=== PATIENT | female | born 1940 | race Caucasian/White ===

== ENCOUNTER → 2020-09-01 11:42 | Outpatient (CLI) | payer MEDICARE, OTHER, SELFPAY ==
--- NOTE | 2020-09-01 11:52 | DI.CT.S_ITS ---
PROCEDURE: CT CHEST WO CON INDICATIONS: shortness of breath TECHNIQUE: Noncontrast 5 mm thick sections acquired from the pulmonary apices to the posterior costophrenic angles. 1 mm lung window, 5 mm thick coronal and sagittal and 7 mm axial MIP reformats were then acquired. For radiation dose reduction, the following was used: automated exposure control, adjustment of mA and/or kV according to patient size. COMPARISON: [facility], CR, CHEST 2 VIEW, 11/22/2013, 13:04. [facility], CT, THORAX WITH CONTRAST, 04/18/2011, 13:11. CR, CHEST 2 VIEW, 08/08/2012, 12:20. FINDINGS: Image quality: Excellent. Lungs and pleura: Lungs are hyperinflated. No acute air space opacities. No pleural effusions or pneumothorax. Central and peripheral airways are patent and normal in caliber. There are right middle lobe and lingular scars and atelectasis. There are multiple lung nodules bilaterally. Desk Clerk nodules are listed below: Nodule 1: 3 mm; RUL; series 3, image 151.; ground-glass; new. Nodule 2: 3 mm; RUL; series 3, image 151; solid; increased in density. Nodule 3: 3 mm; RUL; series 3, image 68; ground-glass; stable. Nodule 4: 6 mm; RUL; series 3, image 68; ground-glass; new. Nodule 5: 3 mm; RUL; series 3, image 129; solid; new. Mediastinum: Heart size is normal. Trace pericardial effusion. Mild coronary artery atherosclerosis. No mediastinal adenopathy by size criteria. Thoracic aorta and central pulmonary arteries are normal in size. Esophagus is normal in caliber. No hiatal hernia. Bones and chest wall: No suspicious bony lesions. No vertebral body compression fractures. No axillary or supraclavicular adenopathy by size criteria. Thyroid gland is normal. Abdomen: Visualized upper abdominal solid organs and bowel loops appear normal in the absence of contrast. Partial visualization of calcified densities near the hepatic hilum. IMPRESSION: 1. No acute abnormalities. 2. Hyperinflation consistent with COPD. 3. Multiple lung nodules. A couple of nodules are new since 04/18/2011. Recommend follow-up imaging per recommendation (see below). 4. Trace pericardial effusion. 5. Partial visualized calcified densities in the hepatic hilum may be calcified lymph nodes. Fleischner Society criteria for SOLID lung nodule followup. Nodule size (mm)Low-risk patientHigh-risk patient?4No follow-up neededFollow-up at 12 mo; if no change, no further follow-up>5-0Hqggzk-ce CT at 12 mo; if no change, no further follow-up needed.Initial follow-up CT at 6-12 mo, then 18-24 mo if no change. >6-8Initial follow-up CT at 6-12 mo, then 18-24 mo if no change. Initial follow-up CT at 3-6 mo, then 9-12 mo and 24 mo if no change. >8Follow-up CT at 3, 9, 24 mo. Or PET and/or biopsy.Same as for low-risk pts. Fleischner Society criteria for SUB-SOLID lung nodule followup. Solitary pure ground-glass nodules5 mm or lessNo followup needed. >5 mm3 mo follow-up CT to confirm persistence. Then annual CT for 3 years. Part-solid nodules3 mo follow-up CT to confirm persistence. If persistent with solid component <5 mm, annual CT for at least 3 years. If solid component is 5 mm or more, biopsy or surgical resection. Consider PET-CT for lesions > 10 mm. Multiple sub-solid nodulesPure ground glass nodules [address] at 2 and 4 years. Pure ground glass nodules >5 mm without dominant lesion. [address] to confirm persistence, then annual followup CT for at least 3 years. Dominant nodule(s) with part-solid or solid component. [address] to confirm persistence. If persistent, consider biopsy or surgical resection, tomi if lesions have >5 mm solid component. Dictated by: Nik Cha M.D. on 09/01/2020 at 12:46 Approved by: Nik Cha M.D. on 09/01/2020 at 13:21
== END ==
PROVIDERS: PCP Family Medicine; Referring Provider Family Medicine; Visit Provider Family Medicine
DX: R06.02 Shortness of breath (principal); R91.8 Other nonspecific abnormal finding of lung field; I25.10 Atherosclerotic heart disease of native coronary artery without angina pectoris
CPT/HCPCS: 71250

== ENCOUNTER → 2020-10-28 12:01 | Outpatient (CLI) | payer MEDICARE, OTHER, SELFPAY ==
--- NOTE | 2020-10-28 12:02 | DI.US.S_ITS ---
PROCEDURE: US PELVIC COMPLETE INDICATIONS: Unspecified abdominal pain TECHNIQUE: Real-time scanning was performed of the pelvic organs, with image documentation. Additional endovaginal scanning was necessary due to incomplete visualization of the adnexal and endometrial structures by transabdominal scanning. COMPARISON: None. FINDINGS: Uterus: Surgically absent. No pelvic mass identified. Ovaries: Surgically absent. Other: No pathologic free abdominal or pelvic fluid. No right groin inguinal hernia. IMPRESSION: 1. Status post hysterectomy and bilateral oophorectomy. 2. No abnormal pelvic mass or fluid. 3. No right inguinal hernia. Dictated by: Sophia Eckert MD, PhD on 10/28/2020 at 17:54 Approved by: Sophia Eckert MD, PhD on 10/28/2020 at 17:55
--- NOTE | 2020-10-28 12:02 | DI.US.S_ITS ---
PROCEDURE: US ABDOMEN COMPLETE INDICATIONS: Unspecified abdominal pain TECHNIQUE: Real-time scanning was performed of the abdominal and retroperitoneal organs, with image documentation. COMPARISON: [facility], US, US PELVIC COMPLETE, 10/28/2020, 11:34. [facility], CT, CT CHEST WO CON, 09/01/2020, 11:53. FINDINGS: Liver: Liver is normal in size and homogeneous in echotexture. Gallbladder: Nondilated. No stones or sludge. Normal gallbladder wall thickness. No pericholecystic fluid. Negative sonographic Sanchez's sign. Biliary ducts: Intrahepatic bile ducts are non-dilated. Extrahepatic bile duct caliber measures 5 mm. Normal is 6-7 mm or less in diameter, or 10 mm or less post-cholecystectomy. Pancreas: Visualized portions of the pancreas are sonographically normal. Spleen: Spleen is normal in size and homogeneous in echotexture. Kidneys: Kidneys are normal in size and echotexture. Right kidney measures 8 cm long; left kidney measures 8.4 cm long. No hydronephrosis or nephrolithiasis. No solid masses. Aorta: Visualized aorta is normal in caliber at less than 3 cm. Atherosclerotic plaque is seen. Iliacs: Proximal common iliac arteries are normal in caliber at less than 2.5 cm. IVC: Intrahepatic inferior vena cava is patent. Miscellaneous: No free abdominal fluid. IMPRESSION: 1. No acute cholecystitis. No gallstones. 2. No biliary ductal dilatation demonstrated. 3. No hydronephrosis. Dictated by: Manuelito Lawrence M.D. on 10/28/2020 at 18:17 Approved by: Manuelito Lawrence M.D. on 10/28/2020 at 18:20
--- NOTE | 2020-10-28 13:21 | DI.RAD.S_ITS ---
PROCEDURE: XR HIP W PEL IF DONE RT 2V INDICATIONS: RT HIP PAIN TECHNIQUE: AP pelvis with lateral view(s) of the right hip(s). COMPARISON: None. FINDINGS: Bones: No fractures or dislocations. Pelvic ring appears intact. No suspicious bony lesions. Soft tissues: The visualized bowel gas pattern is normal. No suspicious soft tissue calcifications. IMPRESSION: Asymmetric hip joint osteoarthritis is present, mild on the left and [id number] on the right, without trauma. Dictated by: Mika Small M.D. on 10/28/2020 at 13:54 Approved by: Mika Small M.D. on 10/28/2020 at 13:55
== END ==
PROVIDERS: PCP Family Medicine; Referring Provider Family Medicine; Visit Provider Family Medicine
DX: R10.9 Unspecified abdominal pain (principal); M25.551 Pain in right hip; M16.0 Bilateral primary osteoarthritis of hip; Z90.710 Acquired absence of both cervix and uterus
CPT/HCPCS: 73502; 76700; 76856

== ENCOUNTER → 2021-05-10 10:48 | Outpatient (CLI) | payer MEDICARE, OTHER, SELFPAY ==
--- NOTE | 2021-05-10 | DI.US.S_ITS ---
PROCEDURE: US ABDOMEN COMPLETE INDICATIONS: PAIN TECHNIQUE: Real-time scanning was performed of the abdominal and retroperitoneal organs, with image documentation. COMPARISON: [facility], US, US ABDOMEN COMPLETE, 10/28/2020, 11:45. FINDINGS: Liver: Liver is normal in size and homogeneous in echotexture. Gallbladder: No findings of gallstones or sludge are seen. The gallbladder wall is not thickened, measuring 3 mm or less. No specific pericholecystic fluid is seen. The sonographic Sanchez sign is negative. Biliary ducts: Intrahepatic bile ducts are non-dilated. Extrahepatic bile duct caliber measures 5 mm. Normal is 6-7 mm or less in diameter, or 10 mm or less post-cholecystectomy. Pancreas: Visualized portions of the pancreas are sonographically normal. Spleen: Spleen is normal in size and homogeneous in echotexture. Kidneys: Right kidney measures 9 cm long; left kidney measures 7.9 cm long. Bilateral low-echogenicity prominent renal pyramids can be seen. No hydronephrosis or nephrolithiasis. No solid masses. Aorta: Visualized aorta is normal in caliber at less than 3 cm. Iliacs: Proximal common iliac arteries are normal in caliber at less than 2.5 cm. IVC: Intrahepatic inferior vena cava is patent. Miscellaneous: No free abdominal fluid. IMPRESSION: The gallbladder demonstrates a normal sonographic appearance. No biliary dilatation is seen. Small kidney size, without hydronephrosis. Prominent bilateral renal pelves remains can be seen Dictated by: Brian See M.D. on 05/10/2021 at 10:59 Approved by: Brian See M.D. on 05/10/2021 at 11:00
== END ==
PROVIDERS: PCP Family Medicine; Referring Provider Family Medicine; Visit Provider Family Medicine
DX: R10.9 Unspecified abdominal pain (principal)
CPT/HCPCS: 76700

== ENCOUNTER → 2021-06-03 14:53 | Outpatient (CLI) | payer MEDICARE, OTHER, SELFPAY ==
--- NOTE | 2021-06-03 14:56 | DI.CT.S_ITS ---
PROCEDURE: CT CHEST ABD PEL WO CON INDICATIONS: Shortness of breath,PELVIC PAIN,COUGH TECHNIQUE: After the administration of oral contrast, 5 mm thick sections acquired from the lung apices to the symphysis pubis. 5 mm thick coronal and sagittal reformats acquired, with additional 7 mm coronal MIP reformats through the lungs. For radiation dose reduction, the following was used: automated exposure control, adjustment of mA and/or kV according to patient size. COMPARISON: [facility], US, US ABDOMEN COMPLETE, 05/10/2021, 11:02. [facility], US, US ABDOMEN COMPLETE, 10/28/2020, 11:45. [facility], US, US PELVIC COMPLETE, 10/28/2020, 11:34. [facility], CT, CT CHEST WO CON, 09/01/2020, 11:53. CR, CHEST 2 VIEW, 08/08/2012, 12:20. FINDINGS: Image quality: Excellent. CHEST: Lungs and pleura: No acute pulmonary opacities. No pleural effusions or pneumothorax. Central and peripheral airways are patent are normal in caliber. Multiple subcentimeter bilateral pulmonary nodules previously identified are again noted and unchanged. The largest is a 6 mm nodule within the right upper lobe on series 3, image 67. Lungs are hyperinflated. Mediastinum: Heart size is mildly prominent with trace pericardial effusion. No mediastinal adenopathy by CT size criteria. Thoracic aorta and central pulmonary arteries are normal in size. Esophagus is normal in caliber. No hiatal hernia. Chest wall: No axillary or supraclavicular adenopathy by size criteria. Thyroid gland is unremarkable. ABDOMEN: Solid organs: Liver is normal in size. Gallbladder is unremarkable . Pancreas is normal in contours. Spleen is normal in size. No adrenal nodules. Both kidneys are normal in size, without hydronephrosis or nephrolithiasis. Peritoneum and bowel: Small and large bowel loops are normal in caliber and wall thickness. No free fluid or air. Scattered colonic diverticula are present without associated inflammatory change. Nodes and vessels: No retroperitoneal or mesenteric adenopathy by size criteria. Aorta and inferior vena cava are normal in size. Miscellaneous: No ventral hernias. PELVIS: Genitourinary: Bladder wall thickness is normal. Miscellaneous: No inguinal hernias or adenopathy. Bones: No suspicious bony lesions. No vertebral body compression fractures. IMPRESSION: 1. Stable appearance of bilateral subcentimeter pulmonary nodules with new nodules 1st identified on 09/01/2020. Based on size, no additional follow-up is recommended. 2. Hyperinflation consistent with COPD. Dictated by: Cinthya Guajardo M.D. on 06/03/2021 at 17:56 Approved by: Cinthya Guajardo M.D. on 06/03/2021 at 18:02
== END ==
PROVIDERS: PCP Family Medicine; Referring Provider Family Medicine; Visit Provider Family Medicine
DX: R06.02 Shortness of breath (principal); R05.9 Cough, unspecified; R10.2 Pelvic and perineal pain; R10.13 Epigastric pain; R91.8 Other nonspecific abnormal finding of lung field; J44.9 Chronic obstructive pulmonary disease, unspecified
CPT/HCPCS: 71250; 74176

== ENCOUNTER → 2021-06-17 11:58 | Outpatient (CLI) | payer MEDICARE, OTHER, SELFPAY ==
--- NOTE | 2021-06-17 | DI.RAD.S_ITS ---
PROCEDURE: XR LUMBAR SPINE 2-3V INDICATIONS: PAIN TECHNIQUE: 2 views of the lumbar spine were acquired. COMPARISON: [facility], CT, CT CHEST ABD PEL WO CON, 06/03/2021, 15:07. FINDINGS: Bones: 5 [id number] vertebrae are present. There is mild rightward curvature. Multilevel degenerative disc space narrowing, most severe at L5-S!, L2-3, mild to moderate throughout remaining levels. Moderate foraminal narrowing at L5-S1. No vertebral body compression fractures. No suspicious bony lesions. Soft tissues: Overlying bowel gas pattern is normal. No suspicious soft tissue calcifications. IMPRESSION: Degenerative changes as above. Dictated by: Cinthya Guajardo M.D. on 06/17/2021 at 16:47 Approved by: Cinthya Guajardo M.D. on 06/17/2021 at 16:50
== END ==
PROVIDERS: PCP Family Medicine; Referring Provider Family Medicine; Visit Provider Family Medicine
DX: M47.816 Spondylosis without myelopathy or radiculopathy, lumbar region (principal); M48.07 Spinal stenosis, lumbosacral region; I25.10 Atherosclerotic heart disease of native coronary artery without angina pectoris; I11.9 Hypertensive heart disease without heart failure
CPT/HCPCS: 72100

== ENCOUNTER → 2021-07-16 08:56 | Outpatient (CLI) | payer MEDICARE, OTHER, SELFPAY ==
--- NOTE | 2021-07-16 | DI.ECHO.S_ITS ---
[place] [facility]---------+ [facility] +---------+ : : [address] : : : : [id number] : : : : Phone: [phone]+ Echocardiogram Report + + :Name: SRIKANTH GONZALEZ Study Date: 07/16/2021 Height: 60 in : :[facility] ReadingLocation: Weight: 106 lb : : Gender: Female BSA: 1.4 m2 : :: 1940 Age: 81 yrs BP: 128/64 mmHg: :Reason For Study: Hypertensive heart disease without heart : :failure : : Performed By: Brian Coyle : :Referring: JEREMIAH DHALIWAL : + + Interpretation Summary Normal left ventricle size with ejection fraction 45-50%. There is apical anterior wall akinesis. There is apical hypokinesis. Grade I diastolic dysfunction. No significant valvular abnormality. Procedure: A two-dimensional transthoracic echocardiogram with color flow and Doppler was performed. Image quality was fair, however, aquisition was technically difficult due to patient remaining supine and unable to remain completely still. The patient was in normal sinus rhythm during the exam. Left Ventricle: The left ventricle is normal in size and wall thickness. The ejection fraction is estimated to be 45-50%. There is apical anterior wall akinesis. There is apical hypokinesis. There are no other obvious focal wall motion abnormalities. Diastolic parameters suggest a relaxation abnormality of the left ventricle, consistent with probable normal filling pressures. Right Ventricle: The right ventricle is normal in size and function. Atria: Both atria are normal in size. There is no Doppler evidence for an interatrial shunt. The thickening of interatrial septum suggests lipomatous hypertrophy. Mitral Valve: The mitral valve is normal. There is no mitral regurgitation noted. Aortic Valve: The aortic valve is trileaflet. The aortic valve opens well. The aortic valve is mildly calcified. There is trace aortic regurgitation. Tricuspid Valve: The tricuspid valve is normal. There is mild tricuspid regurgitation. The right ventricular systolic pressure is estimated to be at least 18 mmHg based on an estimated right atrial pressure of 3 mm Hg. Pulmonic Valve: The pulmonic valve is not well seen, but is grossly normal. Great Vessels: The aortic root is normal size. The ascending aorta is normal in size. The aortic arch is normal in size. The IVC is of normal diameter and collapses greater than 50% with a sniff. This suggests a low right atrial pressure of 3 mm Hg. Pericardium/ Pleura There is no pericardial effusion. There is an anterior echo-free space consistent with a fat pad. There is no pleural effusion. MMode/2D Measurements & Calculations LVIDd: 4.2 cm LVOT diam: 1.9 cm LVIDs: 3.1 cm Ao root diam: 2.8 cm FS: 26.1 % asc Aorta Diam: 3.2 cm IVSd: 0.62 cm Ao Arch Diam (Prox Trans): 1.9 cm LVPWd: 0.71 cm LV kearns. diameter/BSA (cm/m^2): 3.0 LV sys. diameter/BSA (cm/m^2): 2.2 LA A2 area: 11.0 cm2 RA long axis: 4.1 cm LA A4 area: 12.5 cm2 RA area: 9.8 cm2 LA length (vol): 4.8 cm RA vol: 20.0 ml LA vol: 24.5 ml RA : 14.0 ml/m2 LA vol index: 17.2 ml/m2 IVC diam: 1.3 cm TAPSE: 1.6 cm Doppler Measurements & Calculations Ao V2 max: 120.3 cm/sec LVOT Max Luis: 80.1 cm/sec Ao V2 mean: 90.4 cm/sec LV V1 max P.6 mmHg Ao max P.8 mmHg LV V1 VTI: 13.3 cm Ao mean P.5 mmHg CARIN(I,D): 1.6 cm2 Ao V2 VTI: 24.3 cm CARIN(V,D): 2.0 cm2 sev ratio: 0.55 CARIN indexed to BSA (cm^2/m^2): 1.1 MV E max luis: 56.5 cm/sec TR max luis: 191.8 cm/sec MV A max luis: 81.5 cm/sec TR max P.7 mmHg MV E/A: 0.69 PA V2 max: 71.2 cm/sec Med Peak E' Luis: 4.0 cm/sec PA V2 mean: 53.1 cm/sec E/E' med: 14.2 PA mean P.2 mmHg Lat Peak E' Luis: 3.3 cm/sec PA pr(Accel): 24.2 mmHg E/E' lat: 17.2 E/e' average: 15.7 MV dec time: 0.24 sec SV(LVOT): 39.5 ml Electronically signed by: Jeffrey Freitas on Reading Physician:07/16/2021 10:23 AM
== END ==
PROVIDERS: PCP Family Medicine; Referring Provider Family Medicine; Visit Provider Family Medicine
DX: I07.1 Rheumatic tricuspid insufficiency (principal); I11.9 Hypertensive heart disease without heart failure; I25.10 Atherosclerotic heart disease of native coronary artery without angina pectoris
CPT/HCPCS: 93306

== ENCOUNTER → 2021-07-21 13:36 | Outpatient (CLI) | payer MEDICARE, OTHER, SELFPAY ==
--- NOTE | 2021-07-21 | DI.MRI.S_ITS ---
PROCEDURE: MR THORACIC SPINE WO CON INDICATIONS: Other symptoms and signs involving the musculoskel TECHNIQUE: Noncontrast sagittal T1 spine echo and T2 fast spin echo, sagittal STIR, axial T1 and T2 fast spin echo through the thoracic spine. COMPARISON: None. FINDINGS: Image quality: Excellent. Alignment and Curvature: There is normal bony alignment. Bone Marrow: Marrow is of normal overall signal. No acute vertebral body compression fractures. Spinal Cord: Visualized spinal cord is normal in size and signal. Paraspinous Soft Tissues: No paravertebral masses. Miscellaneous: On axial images, central canal and foramina appear widely patent at all scanned levels. IMPRESSION: Normal MRI of the thoracic spine. Dictated by: Mac Moreno M.D. on 07/21/2021 at 15:15 Approved by: Mac Moreno M.D. on 07/21/2021 at 15:19
--- NOTE | 2021-07-21 14:19 | DI.MRI.S_ITS ---
PROCEDURE: MR LUMBAR SPINE WO CON INDICATIONS: Other symptoms and signs involving the musculoskel TECHNIQUE: Noncontrast sagittal T1 spin echo and T2 fast echo, sagittal STIR, axial T1 and T2 fast spin echo through the lumbar spine. In cases with scoliosis, additional coronal T2 fast spin echo may be performed. COMPARISON: None. FINDINGS: Image quality: Excellent. Alignment and Curvature: There is normal bony alignment. Bone Marrow: Marrow is of normal overall signal. No acute vertebral body compression fractures. Spinal Cord: Conus medullaris terminates at the T12-L1 disc level. Visualized cord demonstrates normal signal and size. Paraspinous Soft Tissues: No paravertebral masses. T12-L1: Loss of disc signal. No central stenosis. No neural foraminal narrowing. No neural compression. L1-L2: Loss of disc signal. Mild, diffuse disc bulge. Mild narrowing of the central canal. Mild bilateral neural foraminal narrowing. No neural compression. Fissure noted in the right foraminal annulus. L2-L3: Loss of disc signal and height. Moderate, diffuse disc bulge. Mild bilateral facet hypertrophy. Mild to moderate narrowing of the central canal. Moderate right and [id number] left neural foraminal narrowing. No neural compression. Longitudinal fissures noted in the annulus. L3-L4: Loss of disc signal and slight loss of disc height. Moderate, diffuse disc bulge. Mild bilateral facet hypertrophy. Mild to moderate narrowing of the central canal. Moderate right and [id number] left neural foraminal narrowing. No neural compression. Fissure noted in the anterior annulus. L4-L5: Loss of disc signal and height. Moderate, diffuse disc bulge. Moderate bilateral facet hypertrophy. Moderate narrowing of the central canal. Moderate to severe right and mild left neural foraminal narrowing with slight compression of the exiting right L4 nerve root. L5-S1: Loss of disc signal. Mild, diffuse disc bulge. Mild right and moderate left facet hypertrophy. No central stenosis. Mild bilateral neural foraminal narrowing. No neural compression. IMPRESSION: 1. Multilevel degenerative disc disease. 2. Multilevel facet arthropathy. 3. No severe central canal narrowing. 4. Moderate to severe right L4-L5 neural foraminal narrowing with slight compression of the exiting right L4 nerve root. 5. L1-L2, L2-L3 and L3-L4 disc annulus fissures. Dictated by: Sophia Eckert MD, PhD on 07/21/2021 at 16:52 Approved by: Sophia Eckert MD, PhD on 07/21/2021 at 16:56
== END ==
PROVIDERS: PCP Family Medicine; Referring Provider Family Medicine; Visit Provider Family Medicine
DX: M48.061 Spinal stenosis, lumbar region without neurogenic claudication (principal); M48.07 Spinal stenosis, lumbosacral region; M51.36 Other intervertebral disc degeneration, lumbar region; M51.37 Other intervertebral disc degeneration, lumbosacral region; M47.816 Spondylosis without myelopathy or radiculopathy, lumbar region; M47.817 Spondylosis without myelopathy or radiculopathy, lumbosacral region; R29.898 Other symptoms and signs involving the musculoskeletal system; M81.8 Other osteoporosis without current pathological fracture; M54.50 Low back pain, unspecified
CPT/HCPCS: 72146; 72148

== ENCOUNTER 2021-08-19 04:31 | Emergency (ER) | payer MEDICARE, OTHER, SELFPAY ==
[2021-08-19] VITALS (26 sets, daily range): BP systolic 95–151; BP diastolic 47–112; PULSE 80–111; RESP 18–22; TEMP 36.2; O2SAT 94–100; BMI 18.0
--- NOTE | 2021-08-19 04:37 | ED.BACK ---
HPI - Back Pain/Injury <Mihaipriyanka Mensah, DO - Last Filed: 08/19/21 23:06> General Chief Complaint: Back Pain/Injury Stated Complaint: Flank Pain Time Seen by Provider: 08/19/21 04:37 History of Present Illness HPI Narrative: 81-year-old female former smoker with COPD on home oxygen presents by EMS for evaluation of multiple complaints, though it seems that her back and flank pain is what is bothering her the most. She admits that she has been having various symptoms for many months if not longer which include difficulty with urination, that sensation of a bit bulge into her vagina that she has been told is ?her female parts settling ?, also she often times has hard time generating a bowel movement. She denies any fever chills. She has had no trauma, injury or fall. She had recently been seen by Urology given her complaints and had some microscopic hematuria on their exam. There was some discussion about whether she would benefit from a cystoscopy and there is also referral to Gynecology with the primary working diagnosis being a rectocele. It seems that her discomfort is worse when she moves and improves with rest. EMS was contacted and she was given some pain medication in route. Overall she is not a great historian Related Data Home Medications Medication Instructions Recorded Confirmed acetaminophen 300 mg-codeine 15 mg 1 tab PO Q6H PRN 08/17/21 08/17/21 tablet albuterol sulfate 2.5 mg INHALATION Q4-6H PRN 08/17/21 08/17/21 aspirin 81 mg tablet,delayed 81 mg PO DAILY 08/17/21 08/17/21 release (Adult Low Dose Aspirin) carvedilol 12.5 mg tablet 12.5 mg PO BID 08/17/21 08/17/21 cholecalciferol (vitamin D3) 25 25 mcg PO DAILY 08/17/21 08/17/21 mcg (1,000 unit) capsule clopidogrel 75 mg tablet 75 mg PO DAILY 08/17/21 08/17/21 fluticasone 500 mcg-salmeterol 50 1 inh INHALATION BID 08/17/21 08/17/21 mcg/dose blistr powdr for inhalation (Advair Diskus) furosemide 20 mg tablet (Lasix) 20 mg PO DAILY 08/17/21 08/17/21 gabapentin 100 mg capsule 100 mg PO DAILY 08/17/21 08/17/21 levalbuterol HCl 1.25 mg/3 mL 1.25 mg INHALATION Q4-6H PRN 08/17/21 08/17/21 solution for nebulization (Xopenex) losartan 25 mg tablet 25 mg PO DAILY 08/17/21 08/17/21 simvastatin 20 mg tablet 20 mg PO DAILY 08/17/21 08/17/21 sodium chloride-aloe vera nasal 1 applic TOPICAL BEDTIME PRN 08/17/21 08/17/21 gel (New Century Saline) tiotropium bromide 1.25 2 puff INHALATION DAILY 08/17/21 08/17/21 mcg/actuation mist for inhalation (Spiriva Respimat) vitamin B complex (B 1 tab PO DAILY 08/17/21 08/17/21 Complex-Vitamin B12) Previous Rx's Medication Instructions Recorded oxycodone 5 mg tablet 5 mg PO QID PRN #20 tab 08/19/21 Allergies Allergy/AdvReac Type Severity Reaction Status Date / Time Sulfa (Sulfonamide Allergy Verified 08/17/21 11:00 Antibiotics) Review of Systems <Mihai Mensah DO - Last Filed: 08/19/21 23:06> Review of Systems Narrative: GENERAL: Denies chills, fatigue, malaise, fever, sweats. HEENT: Denies sinus pain, ear pain, sore throat, difficulty swallowing, dizziness. RESPIRATORY: Denies dyspnea, cough, wheezing, hemoptysis, sputum. CARDIOVASCULAR: Denies chest pain, palpitations, orthopnea, edema, GASTROINTESTINAL: See HPI : See HPI MUSCULOSKELETAL: denies weakness, joint pain, or bony pain SKIN: Denies rash, skin lesions, or other NEUROLOGIC: Denies weakness, headache, numbness, change in speech, confusion, seizures, incoordination. PSYCHIATRIC: No concerning psychosocial issues. 12 point review of systems is negative except for those stated above Patient History <Mihai Mensah DO - Last Filed: 08/19/21 23:06> Medical History Anxiety Backache COPD (chronic obstructive pulmonary disease) Coronary arteriosclerosis Hyperlipidemia Hypertension complications Microscopic hematuria Osteoporosis Oxygen dependent Pelvic fracture Pelvic pain in female Peripheral vascular disease Pressure ulcer Right hip pain Vaginal vault prolapse after hysterectomy Vitamin D deficiency Voiding dysfunction Surgical History History of hysterectomy Family History Father Coronary artery disease Mother Coronary artery disease Diabetes mellitus Osteoarthritis Social History household members: spouse and family Smoking Status: Former smoker Exam <Mihai Mensah DO - Last Filed: 08/19/21 23:06> Narrative Exam Narrative: GENERAL: [81] year old patient appears older than stated age. Thin, frail and elderly, obviously uncomfortable HEAD: Atraumatic. Normocephalic. EYES: Pupils equal round and reactive. Extraocular motions intact. No scleral icterus. No injection or drainage. ENT: Nose without bleeding, purulent drainage. Throat without erythema, tonsillar hypertrophy or exudate. Airway patent. NECK: Trachea midline. Non tender CARDIOVASCULAR: Regular rate and rhythm without murmurs, gallops, or rubs. RESPIRATORY: Clear to auscultation. Breath sounds equal bilaterally. No wheezes, rales, or rhonchi. GASTROINTESTINAL: Abdomen soft, non-tender, nondistended. EXTREMITIES: No edema or joint tenderness. BACK: Nontender without deformity or crepitance. No flank tenderness. NEURO: AOx3. SKIN: No rash or erythema of visible areas Initial Vital Signs Initial Vital Signs: Vital Signs Pulse Rate 105 H 08/19/21 04:37 Pulse Oximetry 94 08/19/21 04:37 <Latasha Estrada DO - Last Filed: 08/19/21 13:38> Narrative Exam Narrative: GENERAL: [81] year old patient appears older than stated age. Thin, frail and elderly, obviously uncomfortable HEAD: Atraumatic. Normocephalic. EYES: Pupils equal round and reactive. Extraocular motions intact. No scleral icterus. No injection or drainage. ENT: Nose without bleeding, purulent drainage. Throat without erythema, tonsillar hypertrophy or exudate. Airway patent. NECK: Trachea midline. Non tender CARDIOVASCULAR: Regular rate and rhythm without murmurs, gallops, or rubs. RESPIRATORY: Clear to auscultation. Breath sounds equal bilaterally. No wheezes, rales, or rhonchi. GASTROINTESTINAL: Abdomen soft, non-tender, nondistended. EXTREMITIES: No edema or joint tenderness. BACK: Nontender without deformity or crepitance. No flank tenderness. NEURO: AOx3. SKIN: No rash or erythema of visible areas Mank: 08/19/21. GENERAL: Alert and oriented x three, elderly female in mild distress. HEENT: Head normocephalic, atraumatic, EOMI, pupils reactive, face symmetric, moist mucous membranes NECK: Supple, full range of motion CARDIOVASCULAR: Regular rate and rhythm without murmurs, rubs or gallops. RESPIRATORY: Breath sounds equal bilaterally, no wheezes rales or rhonchi. ABDOMEN: Soft, nontender. Normoactive bowel sounds all 4 quadrants. No guarding or rebound, rigidity, no mass : No CVA tenderness BACK: No cervical, thoracic or lumbar vertebral point tenderness. Patient has somewhat decreased range of motion. Patient has normal movement of bilateral lower extremity she can flex and extend without issue but is uncomfortable. 2+ dorsalis pedis bilaterally. Patient's sensation is touch bilateral. No saddle anesthesia. EXTREMITIES: Normal range of motion, no clubbing or edema. Neurovascularly intact NEUROLOGICAL: Cranial nerves II through XII grossly intact. Moving all extremities SKIN: Warm, dry, no petechiae, no rashes or lesions. Initial Vital Signs Initial Vital Signs: Vital Signs Pulse Rate 105 H 08/19/21 04:37 Pulse Oximetry 94 08/19/21 04:37 Course <Mihai Mensah DO - Last Filed: 08/19/21 23:06> Orders Ordered: Discontinued Medications Sodium Chloride (Normal Saline 0.9%) 1,000 mls @ 125 mls/hr IV CONT KAMRAN Last Infusion: 08/19/21 12:52 Dose: 0 mls/hr Documented by: Infusion: 08/19/21 11:55 Dose: 0 mls/hr Documented by: Admin: 08/19/21 04:53 Dose: 125 mls/hr Documented by: MILLICENT Ketorolac Tromethamine (Ketorolac 30 Mg/Ml Vial) 15 mg IV NOW ONE Stop: 08/19/21 11:34 Last Admin: 08/19/21 11:47 Dose: 15 mg Documented by: ATAYLOR Morphine Sulfate (Morphine 4 Mg/Ml Inj) 4 mg IV NOW ONE Stop: 08/19/21 07:40 Last Admin: 08/19/21 07:42 Dose: 4 mg Documented by: MILLICENT Ondansetron HCl (Ondansetron 4 Mg/2 Ml Inj) 4 mg IV NOW ONE Stop: 08/19/21 08:46 Last Admin: 08/19/21 08:48 Dose: 4 mg Documented by: JEFFERSON Oxycodone HCl (Oxycodone Ir 5 Mg Tablet) 10 mg PO NOW ONE Stop: 08/19/21 09:00 Last Admin: 08/19/21 09:04 Dose: 10 mg Documented by: DEB Potassium Chloride (Potassium Chloride 20 Meq/15 Ml Udc) 40 meq PO NOW ONE Stop: 08/19/21 08:38 Last Admin: 08/19/21 08:48 Dose: 40 meq Documented by: JEFFERSON Consultations Consultation #1: immediately upon viewing of head CT, images were pushed to [facility], call to [facility], Nicardipine ordered with BP goal of 165 Vital Signs Vital signs: Vital Signs - 8 hr 08/19/21 06:00 08/19/21 06:30 08/19/21 07:00 Pulse Rate 81 89 81 Respiratory Rate 20 Blood Pressure 103/51 L 101/51 L 114/57 L Pulse Oximetry 97 97 95 08/19/21 07:35 08/19/21 07:38 08/19/21 08:00 Pulse Rate 111 H 109 H 97 H Respiratory Rate 22 20 Blood Pressure 151/64 H Pulse Oximetry 95 100 98 08/19/21 08:01 08/19/21 08:30 08/19/21 08:31 Pulse Rate 96 H 101 H 96 H Respiratory Rate Blood Pressure 109/53 L 120/57 L Pulse Oximetry 99 99 98 08/19/21 09:00 08/19/21 09:37 08/19/21 09:44 Pulse Rate 93 H 95 H 97 H Respiratory Rate 20 Blood Pressure 119/56 L 99/57 L Pulse Oximetry 98 97 08/19/21 10:00 08/19/21 10:01 08/19/21 10:30 Pulse Rate 85 85 80 Respiratory Rate Blood Pressure 99/51 L Pulse Oximetry 98 98 98 08/19/21 11:00 08/19/21 11:30 08/19/21 12:00 Pulse Rate 87 86 91 H Respiratory Rate 18 Blood Pressure 112/57 L Pulse Oximetry 98 98 99 08/19/21 12:30 08/19/21 12:59 08/19/21 13:08 Pulse Rate 88 85 88 Respiratory Rate 18 Blood Pressure 131/60 131/60 Pulse Oximetry 96 98 98 <Latasha Estrada, DO - Last Filed: 08/19/21 13:38> Orders Ordered: Discontinued Medications Sodium Chloride (Normal Saline 0.9%) 1,000 mls @ 125 mls/hr IV CONT KAMRAN Last Infusion: 08/19/21 12:52 Dose: 0 mls/hr Documented by: Infusion: 08/19/21 11:55 Dose: 0 mls/hr Documented by: Admin: 08/19/21 04:53 Dose: 125 mls/hr Documented by: MILLICENT Ketorolac Tromethamine (Ketorolac 30 Mg/Ml Vial) 15 mg IV NOW ONE Stop: 08/19/21 11:34 Last Admin: 08/19/21 11:47 Dose: 15 mg Documented by: RENEE Morphine Sulfate (Morphine 4 Mg/Ml Inj) 4 mg IV NOW ONE Stop: 08/19/21 07:40 Last Admin: 08/19/21 07:42 Dose: 4 mg Documented by: MILLICENT Ondansetron HCl (Ondansetron 4 Mg/2 Ml Inj) 4 mg IV NOW ONE Stop: 08/19/21 08:46 Last Admin: 08/19/21 08:48 Dose: 4 mg Documented by: JEFFERSON Oxycodone HCl (Oxycodone Ir 5 Mg Tablet) 10 mg PO NOW ONE Stop: 08/19/21 09:00 Last Admin: 08/19/21 09:04 Dose: 10 mg Documented by: DEB Potassium Chloride (Potassium Chloride 20 Meq/15 Ml Udc) 40 meq PO NOW ONE Stop: 08/19/21 08:38 Last Admin: 08/19/21 08:48 Dose: 40 meq Documented by: JEFFERSON Reevaluation(s) Reevaluation #1: Patient has improvement in pain but not resolution. She has not been yet at the bedside. She would prefer to return home if we can help with pain control. We discussed her CT and MRI findings today. She would maybe be open to surgical intervention but is unsure because of her medical comorbidities. Time: 11:15 Reevaluation #2: Patient was seen by PT. She tolerated this well she would benefit from a walker. They also feel she would benefit from home health care. This was initiated with our IT TECH[employer]ICAL SUPPORT SPECIALIST. Plan for pain control with Tylenol, ibuprofen and oxycodone which patient has been tolerating here in the department. Her daughter was also at bedside and reviewed all of her findings today, recommendations from Orthopedic surgery and PT. Consultations Consultation #1: Dr. Montesinos from Orthopedic surgery. Patient to follow-up with Dr. Cee as an outpatient unless she is admitted. Vital Signs Vital signs: Vital Signs - 8 hr 08/19/21 06:00 08/19/21 06:30 08/19/21 07:00 Pulse Rate 81 89 81 Respiratory Rate 20 Blood Pressure 103/51 L 101/51 L 114/57 L Pulse Oximetry 97 97 95 08/19/21 07:35 08/19/21 07:38 08/19/21 08:00 Pulse Rate 111 H 109 H 97 H Respiratory Rate 22 20 Blood Pressure 151/64 H Pulse Oximetry 95 100 98 08/19/21 08:01 08/19/21 08:30 08/19/21 08:31 Pulse Rate 96 H 101 H 96 H Respiratory Rate Blood Pressure 109/53 L 120/57 L Pulse Oximetry 99 99 98 08/19/21 09:00 08/19/21 09:37 08/19/21 09:44 Pulse Rate 93 H 95 H 97 H Respiratory Rate 20 Blood Pressure 119/56 L 99/57 L Pulse Oximetry 98 97 08/19/21 10:00 08/19/21 10:01 08/19/21 10:30 Pulse Rate 85 85 80 Respiratory Rate Blood Pressure 99/51 L Pulse Oximetry 98 98 98 08/19/21 11:00 08/19/21 11:30 08/19/21 12:00 Pulse Rate 87 86 91 H Respiratory Rate 18 Blood Pressure 112/57 L Pulse Oximetry 98 98 99 08/19/21 12:30 08/19/21 12:59 08/19/21 13:08 Pulse Rate 88 85 88 Respiratory Rate 18 Blood Pressure 131/60 131/60 Pulse Oximetry 96 98 98 MDM - Back Pain/Injury <Mihai Mensah, DO - Last Filed: 08/19/21 23:06> Lab Data Result diagrams: 08/19/21 04:52 08/19/21 04:52 Labs: Lab Results 08/19/21 08/19/21 08/19/21 Range/Units 04:52 04:52 04:52 WBC 7.6 (4.5-11.0) X10^3/uL RBC 3.88 L (4.0-5.2) X10^6/uL Hgb 11.8 L (12.0-16.0) g/dL Hct 35.6 L (36-46) % MCV 91.9 (80-100) fL MCH 30.5 (26-34) PG MCHC 33.2 (30-36) % RDW 14.1 (11.6-14.8) % Plt Count 162 (150-400) X10^3/uL Neut % (Auto) 79.7 H (50-75) % Lymph % (Auto) 9.1 L (25-40) % Wilkes % (Auto) 9.8 (3-14) % Eos % (Auto) 1.2 L (2-4) % Baso % (Auto) 0.2 (0-2) % Neut # (Auto) 6100 (3283-0154) /uL Lymph # (Auto) 700 L (9135-2664) /uL Wilkes # (Auto) 700 (0-900) /uL Eos # (Auto) 100 (0-450) /uL Baso # (Auto) 0 (0-100) /uL Sodium 138 (137-145) mmol/L Potassium 3.1 L (3.4-5.1) mmol/L Chloride 101 (98-107) mmol/L Carbon Dioxide 36 H (22-32) mmol/L BUN 12 (7-17) mg/dL Creatinine 0.48 L (0.52-1.04) mg/dL Estimated GFR > 60.0 (>60) mL/min BUN/Creatinine Ratio 25.0 H (6-22) Glucose 139 H (80-110) mg/dL Calcium 10.8 H (8.4-10.2) mg/dL Magnesium 1.7 (1.6-2.3) mg/dL Total Bilirubin 0.4 (0.2-1.3) mg/dL AST 28 (14-36) IU/L ALT 15 (<35) IU/L Alkaline Phosphatase 93 (38-126) U/L Total Protein 6.2 L (6.3-8.2) g/dL Albumin 3.6 (3.5-5.0) g/dL Globulin 2.6 (1.7-4.1) g/dL Albumin/Globulin Ratio 1.4 (1.0-2.8) Lipase 31 (23-300) U/L Urine RBC (0-5/HPF) Urine WBC (0-5/HPF) Ur Squamous Epith Cells (0-5/HPF) Urine Bacteria (None) Ur Culture Indicated? SARS-CoV-2 (PCR) (Negative) 08/19/21 08/19/21 Range/Units 05:15 09:09 WBC (4.5-11.0) X10^3/uL RBC (4.0-5.2) X10^6/uL Hgb (12.0-16.0) g/dL Hct (36-46) % MCV (80-100) fL MCH (26-34) PG MCHC (30-36) % RDW (11.6-14.8) % Plt Count (150-400) X10^3/uL Neut % (Auto) (50-75) % Lymph % (Auto) (25-40) % Wilkes % (Auto) (3-14) % Eos % (Auto) (2-4) % Baso % (Auto) (0-2) % Neut # (Auto) (7180-0583) /uL Lymph # (Auto) (4024-0893) /uL Wilkes # (Auto) (0-900) /uL Eos # (Auto) (0-450) /uL Baso # (Auto) (0-100) /uL Sodium (137-145) mmol/L Potassium (3.4-5.1) mmol/L Chloride (98-107) mmol/L Carbon Dioxide (22-32) mmol/L BUN (7-17) mg/dL Creatinine (0.52-1.04) mg/dL Estimated GFR (>60) mL/min BUN/Creatinine Ratio (6-22) Glucose (80-110) mg/dL Calcium (8.4-10.2) mg/dL Magnesium (1.6-2.3) mg/dL Total Bilirubin (0.2-1.3) mg/dL AST (14-36) IU/L ALT (<35) IU/L Alkaline Phosphatase (38-126) U/L Total Protein (6.3-8.2) g/dL Albumin (3.5-5.0) g/dL Globulin (1.7-4.1) g/dL Albumin/Globulin Ratio (1.0-2.8) Lipase (23-300) U/L Urine RBC 0-1/hpf (0-5/HPF) Urine WBC 0-1/hpf (0-5/HPF) Ur Squamous Epith Cells 0-1 /hpf (0-5/HPF) Urine Bacteria Occasional (0-1) (None) Ur Culture Indicated? Culture not indicate SARS-CoV-2 (PCR) Negative (Negative) Urine Dip Bedside Urine Glucose Negative Bedside Urine Bilirubin - Negative Bedside Urine Ketone - Negative Urine Specific [place] 1.020 Bedside Urine Occult Blood +/- Bedside Urine pH 6.0 Bedside Urine Protein - Negative Bedside Urine Urobilinogen - Negative Bedside Urine Nitrite - Negative Bedside Urine Leukocytes +/- 15 Esterase <Latasha Estrada, DO - Last Filed: 08/19/21 13:38> Lab Data Labs: Lab Results 08/19/21 08/19/21 08/19/21 Range/Units 04:52 04:52 04:52 WBC 7.6 (4.5-11.0) X10^3/uL RBC 3.88 L (4.0-5.2) X10^6/uL Hgb 11.8 L (12.0-16.0) g/dL Hct 35.6 L (36-46) % MCV 91.9 (80-100) fL MCH 30.5 (26-34) PG MCHC 33.2 (30-36) % RDW 14.1 (11.6-14.8) % Plt Count 162 (150-400) X10^3/uL Neut % (Auto) 79.7 H (50-75) % Lymph % (Auto) 9.1 L (25-40) % Wilkes % (Auto) 9.8 (3-14) % Eos % (Auto) 1.2 L (2-4) % Baso % (Auto) 0.2 (0-2) % Neut # (Auto) 6100 (6550-4262) /uL Lymph # (Auto) 700 L (9497-5279) /uL Wilkes # (Auto) 700 (0-900) /uL Eos # (Auto) 100 (0-450) /uL Baso # (Auto) 0 (0-100) /uL Sodium 138 (137-145) mmol/L Potassium 3.1 L (3.4-5.1) mmol/L Chloride 101 (98-107) mmol/L Carbon Dioxide 36 H (22-32) mmol/L BUN 12 (7-17) mg/dL Creatinine 0.48 L (0.52-1.04) mg/dL Estimated GFR > 60.0 (>60) mL/min BUN/Creatinine Ratio 25.0 H (6-22) Glucose 139 H (80-110) mg/dL Calcium 10.8 H (8.4-10.2) mg/dL Magnesium 1.7 (1.6-2.3) mg/dL Total Bilirubin 0.4 (0.2-1.3) mg/dL AST 28 (14-36) IU/L ALT 15 (<35) IU/L Alkaline Phosphatase 93 (38-126) U/L Total Protein 6.2 L (6.3-8.2) g/dL Albumin 3.6 (3.5-5.0) g/dL Globulin 2.6 (1.7-4.1) g/dL Albumin/Globulin Ratio 1.4 (1.0-2.8) Lipase 31 (23-300) U/L Urine RBC (0-5/HPF) Urine WBC (0-5/HPF) Ur Squamous Epith Cells (0-5/HPF) Urine Bacteria (None) Ur Culture Indicated? SARS-CoV-2 (PCR) (Negative) 08/19/21 08/19/21 Range/Units 05:15 09:09 WBC (4.5-11.0) X10^3/uL RBC (4.0-5.2) X10^6/uL Hgb (12.0-16.0) g/dL Hct (36-46) % MCV (80-100) fL MCH (26-34) PG MCHC (30-36) % RDW (11.6-14.8) % Plt Count (150-400) X10^3/uL Neut % (Auto) (50-75) % Lymph % (Auto) (25-40) % Wilkes % (Auto) (3-14) % Eos % (Auto) (2-4) % Baso % (Auto) (0-2) % Neut # (Auto) (6894-7965) /uL Lymph # (Auto) (5965-0041) /uL Wilkes # (Auto) (0-900) /uL Eos # (Auto) (0-450) /uL Baso # (Auto) (0-100) /uL Sodium (137-145) mmol/L Potassium (3.4-5.1) mmol/L Chloride (98-107) mmol/L Carbon Dioxide (22-32) mmol/L BUN (7-17) mg/dL Creatinine (0.52-1.04) mg/dL Estimated GFR (>60) mL/min BUN/Creatinine Ratio (6-22) Glucose (80-110) mg/dL Calcium (8.4-10.2) mg/dL Magnesium (1.6-2.3) mg/dL Total Bilirubin (0.2-1.3) mg/dL AST (14-36) IU/L ALT (<35) IU/L Alkaline Phosphatase (38-126) U/L Total Protein (6.3-8.2) g/dL Albumin (3.5-5.0) g/dL Globulin (1.7-4.1) g/dL Albumin/Globulin Ratio (1.0-2.8) Lipase (23-300) U/L Urine RBC 0-1/hpf (0-5/HPF) Urine WBC 0-1/hpf (0-5/HPF) Ur Squamous Epith Cells 0-1 /hpf (0-5/HPF) Urine Bacteria Occasional (0-1) (None) Ur Culture Indicated? Culture not indicate SARS-CoV-2 (PCR) Negative (Negative) Urine Dip Bedside Urine Glucose Negative Bedside Urine Bilirubin - Negative Bedside Urine Ketone - Negative Urine Specific [place]oren[place] 1.020 Bedside Urine Occult Blood +/- Bedside Urine pH 6.0 Bedside Urine Protein - Negative Bedside Urine Urobilinogen - Negative Bedside Urine Nitrite - Negative Bedside Urine Leukocytes +/- [address] scan - abdomen/pelvis: Radiologist's Impression: concentric thickening esophagus suggesting esophagitis. Under compression fracture L3 and mild compression fracture T12 new since 07/26/2021. Severe atherosclerosis aorta with moderate aortic stenosis. MRI Lspine: Radiologist's Impression: Launch?[address] [address] Magnetic Resonance Report Signed Patient: Jazmine Gonzales MR#: [id number] : 1940 Acct:[id number] Age/Sex: 81 / F Date of Service: 08/19/21 Loc: ED Accession Number: [id number] ?? Procedure: MR lumbar spine wo con Ordering Provider: Latasha Estrada D.O. PROCEDURE:? MR LUMBAR SPINE WO CON ? INDICATIONS:? new compression fx's. weakness ? TECHNIQUE:? Noncontrast sagittal T1 spin echo and T2 fast echo, sagittal STIR, axial T1 and T2 fast spin echo through the lumbar spine.? In cases with scoliosis, additional coronal T2 fast spin echo may be performed.? ? COMPARISON:? None. ? FINDINGS:? ? These images demonstrate acute superior endplate compression fractures at L3 and T12.? There is mild bone marrow edema associated with the fractures.? Low T1 fracture planes extend transversely through the endplates.? There is no osseous retropulsion.? No suspicious focal marrow signal abnormality to suggest an underlying pathologic lesion.? Anterolisthesis of L4 on L5 measuring 2 mm.? Otherwise normal alignment. ? Normal position and appearance of the conus.? Prevertebral and paraspinous soft tissues demonstrate no significant abnormality. ? T12-L1:? No spinal canal or neural foraminal stenosis. ? L1-L2:? Diffuse disc bulge flattens the ventral thecal sac without mass effect upon the traversing L2 nerve roots.? No spinal canal stenosis.? Foraminal components of the disc bulge and facet hypertrophy combine to produce mild bilateral neural foraminal stenosis. ? L2-L3:? Moderate spinal canal stenosis due to diffuse disc bulge with a superimposed broad-based posterior disc protrusion combine with facet hypertrophy and buckling of the ligamentum flavum.? Displacement of the descending bilateral L3 nerve roots within both subarticular zones.? Foraminal components of the disc bulge and facet hypertrophy combine to produce mild bilateral neural foraminal stenosis. ? L3-L4:? Mild spinal canal stenosis and subarticular zone stenosis due to diffuse disc bulge and a superimposed broad-based posterior disc protrusion with contribution from facet hypertrophy.? Foraminal components of the disc bulge combine with facet hypertrophy to produce mild bilateral neural foraminal stenosis. ? L4-L5:? Moderate spinal canal stenosis due to diffuse disc bulge and a superimposed broad-based posterior disc protrusion.? Displacement of the bilateral descending L5 nerve roots within both subarticular zones, producing probable impingement on the right.? Foraminal component of the disc bulge and facet hypertrophy contribute to mild right neural foraminal stenosis. ? L5-S1:? Diffuse disc bulge with mild displacement of the S1 nerve roots.? No neural foraminal stenosis. ? ? IMPRESSION:? ? Acute mild compression deformities at L3 and T12.? No associated spinal canal stenosis or osseous retropulsion. ? 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 ? Dictated by: Blu Brannon M.D. on 08/19/2021 at 9:41 ? ? Approved by: Blu Brannon M.D. on 08/19/2021 at 9:46?? MDM Narrative Medical decision making narrative: This is an 81-year-old female signed out to myself for pain. No acute trauma is appreciated by the patient but she noted getting out of a truck on Monday and with any sort of movement and had pain in the flank and back. Patient transferred via EMS and had pain medication. She is noted to have new compression fractures compared to prior lumbar MRI in July including T12 and L3. There is some concentric thickening in the distal esophagus but no other changes that would describe her pain. Potassium slightly low but her labs are otherwise reassuring. Patient CT does show T12 and L3 compression fractures. MRI was ordered she is having some difficulty with pain control. There is no acute surgical emergency her her MRI findings today. She does have some moderate spinal canal stenosis and spondylitic and arthropathic changes. Patient has had pain medication here in the department and was able to ambulate with a walker with PT who also recommended PT at home. Her and her daughter feel comfortable with this plan. All questions answered return precautions discussed. Discharge Plan Departure Patient Disposition: Home Clinical Impression: T12 compression fracture, Compression fracture of L3 vertebra Instructions: DI for Vertebral Fracture Activity Restrictions/Additional Instructions: Follow-up with orthopedic surgery for recheck. You do have 2 compression fractures in her thoracic and lumbar spine. You may be a candidate for kyphoplasty or vertebroplasty. Please contact the number below to set up follow-up. Use walker as needed. You may take Tylenol up to a 1000 mg every 8 hours and or ibuprofen up to 600 mg every 6 hours as needed for pain. If in adequate you can add 1-2 tablets of oxycodone every 6 hours as needed. This medication can make you sleepy do not drive, perform hazardous activities or make any major decisions while taking it. This medication will make you constipated please take a stool softener once to twice daily until stools are soft and regular. Prescription sent to Please return for rapidly worsening symptoms, new weakness, difficulty or inability to ambulate, new numbness, tingling, loss of bowel or bladder control that are new or changing, passing out new chest pain or shortness breath or other new or concerning symptoms. Prescriptions: New oxycodone 5 mg tablet 5 mg PO QID PRN (Reason: pain) Qty: 20 0RF No Action gabapentin 100 mg capsule 100 mg PO DAILY 0RF acetaminophen-codeine 300-15 mg tablet 1 tab PO Q6H PRN0RF fluticasone propion-salmeterol [Advair Diskus] 500-50 mcg/dose blister with device 1 inh inhalation BID 0RF furosemide [Lasix] 20 mg tablet 20 mg PO DAILY 0RF losartan 25 mg tablet 25 mg PO DAILY 0RF clopidogrel 75 mg tablet 75 mg PO DAILY 0RF simvastatin 20 mg tablet 20 mg PO DAILY 0RF carvedilol 12.5 mg tablet 12.5 mg PO BID 0RF Rx Instructions: must administer with a meal/food albuterol sulfate 2.5 mg /3 mL (0.083 %) solution for nebulization 2.5 mg inhalation Q4-6H PRN0RF cholecalciferol (vitamin D3) 25 mcg (1,000 unit) capsule 25 mcg PO DAILY 0RF vitamin B complex [B Complex-Vitamin B12] Tablet 1 tab PO DAILY 0RF levalbuterol HCl [Xopenex] 1.25 mg/3 mL solution for nebulization 1.25 mg inhalation Q4-6H PRN0RF Spiriva Respimat 1.25 mcg/actuation mist 2 puff inhalation DAILY 0RF [place] Saline Gel 1 applic topical BEDTIME PRN0RF aspirin [Adult Low Dose Aspirin] 81 mg tablet,delayed release (DR/EC) 81 mg PO DAILY 0RF Referrals: Rolly Kaur MD [Physician] - Emery Singer MD [Primary Care Provider] -
[2021-08-19] MEDS: SODIUM CHLORIDE 0.9% 1,000 ML 125 ML IV (04:53)
[2021-08-19 05:10] LABS: Add Manual Diff / Slide Review NO; Basophils Absolute Auto 0 /uL (0-100); Basophils Percent Auto 0.2 % (0-2); Eosinophils Absolute Auto 100 /uL (0-450); Eosinophils Percent Auto 1.2 % (2-4); Hematocrit 35.6 % (36-46); Hemoglobin 11.8 g/dL (12.0-16.0); Lymphocytes Absolute Auto 700 /uL (1100-4500); Lymphocytes Percent Auto 9.1 % (25-40); Mean Corpuscular HGB Conc 33.2 % (30-36); Mean Corpuscular Hemoglobin 30.5 PG (26-34); Mean Corpuscular Volume 91.9 fL (80-100); Monocytes Absolute Auto 700 /uL (0-900); Monocytes Percent Auto 9.8 % (3-14); Neutrophils Absolute Auto 6100 /uL (1500-7000); Neutrophils Percent Auto 79.7 % (50-75); Platelet Count 162 X10^3/uL (150-400); Red Blood Cell Count 3.88 X10^6/uL (4.0-5.2); Red Cell Distribution Width 14.1 % (11.6-14.8); White Blood Cell Count 7.6 X10^3/uL (4.5-11.0)
[2021-08-19 05:16] LABS: Lipase 31 U/L (23-300); Magnesium 1.7 mg/dL (1.6-2.3)
[2021-08-19 05:17] LABS: Alanine Aminotransferase 15 IU/L (<35); Albumin 3.6 g/dL (3.5-5.0); Albumin Globulin Ratio 1.4 (1.0-2.8); Alkaline Phosphatase 93 U/L (38-126); Aspartate Aminotransferase 28 IU/L (14-36); Bilirubin Total 0.4 mg/dL (0.2-1.3); Blood Urea Nitrogen 12 mg/dL (7-17); Calcium 10.8 mg/dL (8.4-10.2); Carbon Dioxide 36 mmol/L (22-32); Chloride 101 mmol/L (98-107); Estimated Glomerular Filt Rate > 60.0 mL/min (>60); Globulin 2.6 g/dL (1.7-4.1); Glucose 139 mg/dL (80-110); HEMOLYSIS < 15 (0-50); Potassium 3.1 mmol/L (3.4-5.1); Sodium 138 mmol/L (137-145); Total Protein 6.2 g/dL (6.3-8.2)
[2021-08-19 05:42] LABS: Bacteria Urine Occasional (0-1); RBC Urine 0-1/HPF (0-5/HPF); Squamous Epithelial Cell Urine 0-1 /HPF (0-5/HPF); WBC Urine 0-1/HPF (0-5/HPF)
--- NOTE | 2021-08-19 07:39 | DI.CT.S_ITS ---
PROCEDURE: CT ABDOMEN PELVIS W CON INDICATIONS: severe back pain TECHNIQUE: After the administration of IV contrast, axial sections were acquired from the lung bases to the pubic symphysis. Coronal and sagittal reformats were performed. For radiation dose reduction, the following was used: automated exposure control, adjustment of mA and/or kV according to patient size. COMPARISON: [facility], MR, MR THORACIC SPINE WO CON, 07/21/2021, 14:00. [facility], MR, MR LUMBAR SPINE WO CON, 07/21/2021, 14:00. [facility], RG, CT ABDOMEN/PELVIS WITH CONTRAST, 07/26/2021, 20:37. [facility], CT, CT CHEST ABD PEL WO CON, 06/03/2021, 15:07. FINDINGS: Image quality: Excellent. Lung bases: Lingular scars and atelectasis. Concentric thickening of the distal esophagus. Heart: No significant findings. ABDOMEN: Liver: Unremarkable. Gallbladder: Unremarkable. Biliary ducts: Unremarkable. Pancreas: Unremarkable. Spleen: Unremarkable. Adrenal Glands: Unremarkable. Kidneys and Ureters: Unremarkable. Stomach and Bowel: Stomach, small bowel loops, and colon are normal in caliber. Moderate amount of stool in colon. Peritoneum: No abnormal intraperitoneal fluid. No free air. Ventral Wall: No hernia. Abdominal Nodes: No retroperitoneal or mesenteric adenopathy by size criteria. Vessels: Severe atherosclerosis. There is wqqg-db-[id number] aortic stenosis in upper abdominal aorta. Inferior vena cava are normal in size. PELVIS: Pelvic Organs: Uterus is absent. Ovaries are not visualized. No pathological free-fluid in the cul-de-sac or adnexa. Bladder: Unremarkable. Pelvic Nodes: No enlarged lymph nodes. Miscellaneous: Note is made of small fat containing left inguinal hernia. There is a 1.4 cm diameter round fluid collection or cyst in the right groin. Bones: Moderate compression fracture of L3 and mild compression fracture of T12, new since 07/26/2021. IMPRESSION: 1. There is concentric thickening of the distal esophagus suggesting esophagitis. 2. Moderate compression fracture of L3 and mild compression fracture of T12, new since 07/26/2021. The patient may be candidate for vertebroplasty. 3. Severe atherosclerosis of aorta with moderate aortic stenosis. The result was discussed with Dr. Estrada. Dictated by: Nik Cha M.D. on 08/19/2021 at 8:10 Approved by: Nik Cha M.D. on 08/19/2021 at 8:24
[2021-08-19] MEDS: MORPHINE 4 MG/ML INJ IV (07:42)
[2021-08-19] MEDS: ONDANSETRON 4 MG/2 ML INJ IV (08:48)
[2021-08-19] MEDS: POTASSIUM CHLORIDE 20 MEQ/15 ML UDC 40 MEQ PO (08:48)
--- NOTE | 2021-08-19 08:59 | DI.MRI.S_ITS ---
PROCEDURE: MR LUMBAR SPINE WO CON INDICATIONS: new compression fx's. weakness TECHNIQUE: Noncontrast sagittal T1 spin echo and T2 fast echo, sagittal STIR, axial T1 and T2 fast spin echo through the lumbar spine. In cases with scoliosis, additional coronal T2 fast spin echo may be performed. COMPARISON: None. FINDINGS: These images demonstrate acute superior endplate compression fractures at L3 and T12. There is mild bone marrow edema associated with the fractures. Low T1 fracture planes extend transversely through the endplates. There is no osseous retropulsion. No suspicious focal marrow signal abnormality to suggest an underlying pathologic lesion. Anterolisthesis of L4 on L5 measuring 2 mm. Otherwise normal alignment. Normal position and appearance of the conus. Prevertebral and paraspinous soft tissues demonstrate no significant abnormality. T12-L1: No spinal canal or neural foraminal stenosis. L1-L2: Diffuse disc bulge flattens the ventral thecal sac without mass effect upon the traversing L2 nerve roots. No spinal canal stenosis. Foraminal components of the disc bulge and facet hypertrophy combine to produce mild bilateral neural foraminal stenosis. L2-L3: Moderate spinal canal stenosis due to diffuse disc bulge with a superimposed broad-based posterior disc protrusion combine with facet hypertrophy and buckling of the ligamentum flavum. Displacement of the descending bilateral L3 nerve roots within both subarticular zones. Foraminal components of the disc bulge and facet hypertrophy combine to produce mild bilateral neural foraminal stenosis. L3-L4: Mild spinal canal stenosis and subarticular zone stenosis due to diffuse disc bulge and a superimposed broad-based posterior disc protrusion with contribution from facet hypertrophy. Foraminal components of the disc bulge combine with facet hypertrophy to produce mild bilateral neural foraminal stenosis. L4-L5: Moderate spinal canal stenosis due to diffuse disc bulge and a superimposed broad-based posterior disc protrusion. Displacement of the bilateral descending L5 nerve roots within both subarticular zones, producing probable impingement on the right. Foraminal component of the disc bulge and facet hypertrophy contribute to mild right neural foraminal stenosis. L5-S1: Diffuse disc bulge with mild displacement of the S1 nerve roots. No neural foraminal stenosis. IMPRESSION: Acute mild compression deformities at L3 and T12. No associated spinal canal stenosis or osseous retropulsion. 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 Dictated by: Blu Brannon M.D. on 08/19/2021 at 9:41 Approved by: Blu Brannon M.D. on 08/19/2021 at 9:46
[2021-08-19] MEDS: OXYCODONE IR 5 MG TABLET 10 MG PO (09:04)
[2021-08-19 09:55] LABS: COVID19 - ADMIT (NP swab/PCR) Negative (Negative)
--- NOTE | 2021-08-19 11:45 | PT.IIE ---
Medical History (Last Reviewed 08/19/21 @ 04:43 by Mihai Mensah DO) Anxiety Backache COPD (chronic obstructive pulmonary disease) Coronary arteriosclerosis Hyperlipidemia Hypertension complications Microscopic hematuria Osteoporosis Oxygen dependent Pelvic fracture Pelvic pain in female Peripheral vascular disease Pressure ulcer Right hip pain Vaginal vault prolapse after hysterectomy Vitamin D deficiency Voiding dysfunction Physical Therapy Inpatient Evaluation/Re-Eval M1 PT/OT-IP Prior Functional Status Start: 08/19/21 13:18 Freq: Status: Discharge Protocol: Document 08/19/21 11:45 AB (Rec: 08/19/21 13:39 AB [id number]) Medical Review Prior Functional Status Medical History Reviewed Yes Communication able to make needs known Mobility and Gait pt stated that her spouse/ daughter assists her at home. usually able to ambulate without AD indoors but furniture cruises; uses a 4WW for outdoor mobility but only able to ambulate short distance and pt sits on 4WW and family pushes her on 4WW. daughter stated that on a good day, pt is able to ambulate ~ 40 ft inside the house. pt has been needing more assistance lately due to c/o lower abdominal pain. Social History Household Members spouse,family Number of Floors (Floors) One Floor Number of Stairs To Enter/Railing? 3 platform steps to enter Home Environment Standard Height Toilet,Tub/ Shower Home Equipment Four Wheel Walker,Bedside Commode,Shower Seat without Backrest,Hand Held Shower,Grab Bars In Shower Additional Social History Comment daughter confirmed that there is somebody available at home to assist pt at all times. pt uses home O2 due to COPD M2 PT-IP Current Condition Start: 08/19/21 13:18 Freq: Status: Discharge Protocol: Document 08/19/21 11:45 AB (Rec: 08/19/21 13:39 AB [email or web address]) Physical Therapy Current Condition Current Condition Evaluation Date 08/19/21 Treatment Diagnosis T12,L3 compression fx; difficulty in walking Onset Date 08/19/21 M3 PT-IP Subjective Start: 08/19/21 13:18 Freq: Status: Discharge Protocol: Document 08/19/21 11:45 AB (Rec: 08/19/21 13:39 AB [id number]) Subjective Physical Therapy Visit Type Type Initial Evaluation Visit Start Time 11:45 Visit Stop Time 12:45 Total Visit Minutes 60 Number of SNELLER HAND Visits 0 Physical Therapy Visit Comments Patient Comments agreed to do PT; requesting to use the toilet Therapy Pain Assessment Pain When Pain Assessed During Mobility Pain Present Pain Present Pain Reported Location Lower Back Intensity 10 Scale Used Numeric (0 - 10) Pain Management Techniques Modification of Treatment,Re- positioning,Timing of Activity with Medications M4 PT-IP Mobility and Gait Start: 08/19/21 13:18 Freq: Status: Discharge Protocol: Document 08/19/21 11:45 AB (Rec: 08/19/21 13:39 AB [id number]) PT-Bed Mobility Assessment Rolling Type of Rolling Log Rolling Level of Assist Standby Assistance Supine to Sit Supine to Sit Standby Assistance Sit to Supine Sit to Supine Minimal Assistance,Moderate Assistance PT-Transfer Assessment Sit to and From Stand Sit to and from Stand Contact Guard Assistance,1 Person Assistance,Use of Upper Extremities Equipment Transfer Assistive Device Gait Belt,Front Wheeled Walker Orthotic/Prosthetic Devices or Brace: No Transfers Transfer Destination Bedside Commode Transfer Technique ambulated Transfer Ability Level of Assist Contact Guard Assistance,1 Person Assistance,Use of Upper Extremities Comments Mobility Comments daughter arrived prior to pt started with mobility and confirmed that pt will have assistance at home. stated that pt has been limited with mobility for ~ 3-4 months due to abdominal pain. educated pt regarding back precautions and log roll bed mobility. pt stated that she has been doing log roll bed mobility since she had her pelvic fx. pt completed log roll supine to sit SBA. able to sit on EOB SBA. completed sit to stand CGA and ambulated ~ 5 ft to bedside commode CGA . pt able to complete toileting needs SBA. completed sit to stand from bedside commode SBA and agreed to ambulate more in room and completed ~ 20 ft using FWW CGA. pt requested to go back to bed. completed log roll bed mobility min to mod and cues. positioned pt in bed. Call light and table placed within reach. informed pt regarding safety and use of FWW for ambulation at this time and agreed. pt wants a FWW dispensed to her from [facility]. informed nurse/doctor regarding FWW order reuqest and pt needing HHPT. obtained FWW and adjusted for pt. dispensed FWW to pt and pt signed necessary document. Gait Assessment Gait Gait Assistance Required: Contact Guard Assist Distance (Feet) 20 Able to Maintain Weight Bearing Status Yes During Gait Assistive Devices Assistive Device Gait Belt,Front Wheeled Walker Orthotic/Prosthetic Devices or Brace: No Gait Deviations General Gait Pattern Antalgic,Decreased Stride Length,Decreased Feet Clearance Factors Limiting Gait Function Factors Limiting Gait Function Decreased Activity Tolerance, Decreased Sensation,Decreased Strength,Limited Range of Motion,Pain,Poor Balance,Poor Safety Awareness,Respiratory Distress PT-Balance Assessment Sitting Balance and Reactions Static Sitting Balance Ability Good Dynamic Sitting Balance Ability Good Standing Balance and Reactions Static Standing Balance Ability Fair Dynamic Standing Balance Ability Fair Device Used FWW M5 PT-IP Objective Assessments Start: 08/19/21 13:18 Freq: Status: Discharge Protocol: Document 08/19/21 11:45 AB (Rec: 08/19/21 13:39 AB [email or web address]) Orientation Orientation/Cognition Level of Alertness Alert Orientation Name,Place,Situation Language Function Ability No Deficits Noted Safety Awareness Decreased Safety Awareness Gross Range of Motion Lower Extremity ROM Assessment Within Functional Limits Strength Lower Extremity Strength Assessment Bilaterally Impaired Hip 3+/5 Knee 4-/5 Coordination Assessment Gross Coordination Gross Coordination WNL Sensation Assessment Sensation Sensation Description Numbness Comments Sensation Comments chronic BLe numbness per pt Muscle Tone Muscle Tone WNL Yes M6 PT-IP Treatment Start: 08/19/21 13:18 Freq: Status: Discharge Protocol: Document 08/19/21 11:45 AB (Rec: 08/19/21 13:39 AB [email or web address]) Physical Therapy Treatment Education Education Provided Precautions,Post-Op Packet, Safety Equipment Issued Equipment Type and Company FWW dispensed and pt signed M7 PT-IP Assessment and Plan Start: 08/19/21 13:18 Freq: Status: Discharge Protocol: Document 08/19/21 11:45 AB (Rec: 08/19/21 13:39 AB [email or web address]) PT Summary Assessment and Plan Potential Rehabilitation Potential Good Status of Condition at Evaluation Stable Summary Impairments Pain,ROM,Strength,Balance, Coordination,Sensation,Tone, Cognition,Bed Mobility, Transfers,Gait,Activity Tolerance Assessment Summary Received PT eval from ER to assess pt's safety for d/c home. pt requiring CGA with transfers and ambulation using FWW and will have family to assist her at home. recommending use of FWW at this time for safety and pt agreed. FWW dispensed to pt. pt will also need HHPT to improve strength and mobility independence upon d/c. pt is safe to go home with assist at home. Goals Bed Mobility Goal Independent Transfer Goal Independent,Front Wheeled Walker Gait Goal Independent,Front Wheel Walker Gait Distance 40 Other Goals up/down platform step using fWW CGA Days to Meet Goals 3 Frequency of Treatment Frequency Of Treatment Once a Day Treatment Plan Physical Therapy Treatment Plan Bed Mobility Training,Transfer Training,Gait Training, Therapeutic Exercise,Balance Retraining,Discharge Planning, Hot or Cold Pack,Neuromuscular Re-ed,Coordination Retraining Recommendations To Nursing Amount of Assist Needed 1 Person Assist Discharge Recommendations PT Discharge Recommendations Home with 27/02 Assist Available,Home Health Transportation Needs at Discharge Private Vehicle
[2021-08-19] MEDS: KETOROLAC 30 MG/ML VIAL 15 MG IV (11:47)
--- NOTE | 2021-08-19 11:55 | PC.NURSE ---
Physical Therapy at bedside.
--- NOTE | 2021-08-19 15:44 | CM.SWNOTE ---
81yo female patient in ED setting for back pain which imaging revealed to be compression fractures. PT evaluation completed and rec HH. BANQUET DIRECTOR met with patient who reported a prior provider but she was not able to provide name of company. BANQUET DIRECTOR reported BANQUET DIRECTOR would review EMR to obtain name of company. Patient provided permission for [facility] to be provider if prior company could not be found in EMR (or if it was [employer] prior). EMR review did not reveal prior HH agency. BANQUET DIRECTOR spoke to Ogla at [facility] who reported they would be able to open up with patient by Monday with RN and set up further services from there. BANQUET DIRECTOR contacted patient at home as patient had been discharged prior to referral being made. Patient informed of company, when expected to open services, and given phone number for office of [facility] to contact should patient need to do so. BANQUET DIRECTOR faxed F2F, PT note, and facesheet to [facility]. Nelson GRIFFINSW
== END 2021-08-19 13:35 | disposition home or self-care (01) ==
PROVIDERS: Emergency Medicine; Emergency Provider Emergency Medicine; PCP Family Medicine
DX: S22.080A Wedge compression fracture of T11-T12 vertebra, initial encounter for closed fracture (principal); S32.030A Wedge compression fracture of third lumbar vertebra, initial encounter for closed fracture; Z87.891 Personal history of nicotine dependence; X58.XXXA Exposure to other specified factors, initial encounter; Z20.822 Contact with and (suspected) exposure to COVID-19
CPT/HCPCS: 36415; 72148; 74177; 80053; 81003; 81015; 83690; 83735; 85025; 87077; 87086; 87635; 96361; 96374; 96375; 97161; 97530; 99284; 99285; C9803; J1885; J2270; J2405

== ENCOUNTER 2021-08-24 14:22 | Emergency (ER) | payer MEDICARE, OTHER, SELFPAY ==
[2021-08-24] VITALS (12 sets, daily range): BP systolic 150–192; BP diastolic 75–117; PULSE 77–101; RESP 17–40; TEMP 36.6; O2SAT 93–100
--- NOTE | 2021-08-24 15:13 | ED.RECABL ---
HPI - Recheck/Abnormal Lab/Rx General Chief Complaint: Recheck/Abnormal Lab/Rx Stated Complaint: constipation Time Seen by Provider: 08/24/21 15:13 Source: patient and EMS Mode of arrival: EMS Limitations: no limitations History of Present Illness HPI narrative: This is an 81-year-old female who was seen on August 19 for compression fracture. Patient has known COPD on home O2, CAD, hypertension and dyslipidemia, prior pelvic fracture, vaginal prolapse after hysterectomy difficulty with urination/voiding dysfunction. Patient states she has had increasing abdominal discomfort she has not had a bowel movement in over a week. Patient was seen here on the . Patient has had some intermittent nausea and vomiting but had even occurred before she was seen in the emergency department. She has recently been put on oxycodone for compression fractures which may be contributing to her symptoms. Patient has not been passing flatus. She states she has had difficulty with urination which is not new but has been worsened. She feels like her abdomen is distended and she has abdominal discomfort as well as pain in her back. Patient has not had new falls she has been ambulating with her walker. She had oxycodone 8:30 this morning and a 2nd oxycodone at 12:30 p.m.. Patient states she is being assisted home by her daughter. She has tried multiple stool softeners, states she has been drinking water, tried glycerin suppository as well as enema without any improvement. Related Data Home Medications Medication Instructions Recorded Confirmed acetaminophen 300 mg-codeine 15 mg 1 tab PO Q6H PRN 08/17/21 08/17/21 tablet albuterol sulfate 2.5 mg INHALATION Q4-6H PRN 08/17/21 08/17/21 aspirin 81 mg tablet,delayed 81 mg PO DAILY 08/17/21 08/17/21 release (Adult Low Dose Aspirin) carvedilol 12.5 mg tablet 12.5 mg PO BID 08/17/21 08/17/21 cholecalciferol (vitamin D3) 25 25 mcg PO DAILY 08/17/21 08/17/21 mcg (1,000 unit) capsule clopidogrel 75 mg tablet 75 mg PO DAILY 08/17/21 08/17/21 fluticasone 500 mcg-salmeterol 50 1 inh INHALATION BID 08/17/21 08/17/21 mcg/dose blistr powdr for inhalation (Advair Diskus) furosemide 20 mg tablet (Lasix) 20 mg PO DAILY 08/17/21 08/17/21 gabapentin 100 mg capsule 100 mg PO DAILY 08/17/21 08/17/21 levalbuterol HCl 1.25 mg/3 mL 1.25 mg INHALATION Q4-6H PRN 08/17/21 08/17/21 solution for nebulization (Xopenex) losartan 25 mg tablet 25 mg PO DAILY 08/17/21 08/17/21 simvastatin 20 mg tablet 20 mg PO DAILY 08/17/21 08/17/21 sodium chloride-aloe vera nasal 1 applic TOPICAL BEDTIME PRN 08/17/21 08/17/21 gel ([place] Saline) tiotropium bromide 1.25 2 puff INHALATION DAILY 08/17/21 08/17/21 mcg/actuation mist for inhalation (Spiriva Respimat) vitamin B complex (B 1 tab PO DAILY 08/17/21 08/17/21 Complex-Vitamin B12) Previous Rx's Medication Instructions Recorded oxycodone 5 mg tablet 5 mg PO QID PRN #20 tab 08/19/21 lidocaine 5 % topical patch 1 patch TOPICAL DAILY PRN #30 ea 08/24/21 Allergies Allergy/AdvReac Type Severity Reaction Status Date / Time Sulfa (Sulfonamide Allergy Verified 08/17/21 11:00 Antibiotics) Review of Systems Review of Systems ROS Unobtainable: All systems reviewed & are unremarkable except as noted in HPI and below Patient History Medical History Anxiety Backache COPD (chronic obstructive pulmonary disease) Coronary arteriosclerosis Hyperlipidemia Hypertension complications Microscopic hematuria Osteoporosis Oxygen dependent Pelvic fracture Pelvic pain in female Peripheral vascular disease Pressure ulcer Right hip pain Vaginal vault prolapse after hysterectomy Vitamin D deficiency Voiding dysfunction Surgical History History of hysterectomy Family History Father Coronary artery disease Mother Coronary artery disease Diabetes mellitus Osteoarthritis Social History household members: spouse and family Smoking Status: Former smoker Smoking Status: Former smoker Substance Use Type: does not use Exam Narrative Exam Narrative: GEN: Elderly female, alert and oriented x 3, patient appears to be in mild distress. HEENT: Atraumatic, pupils are equal round reactive to light, extraocular movements are intact, nares are clear, TMs are clear with no fluid, there is no conjunctival pallor. Throat is clear without any exudates, erythema, tonsillar enlargement or uvular deviation HEART: Regular rate and rhythm without murmur, clicks, rubs. No carotid bruits, pulses are equal in upper and lower extremities LUNGS:Lungs clear to auscultation, no wheezes, rales, crackles, chest moves symmetrically ABD:bowel sounds normal, soft, non-tender, distended, no guarding, rebound, rigidity, no masses noted, no hepatosplenomegaly :No CVA tenderness MSCL: Non-tender, full range of motion NEURO:CN 2-12 intact, sensation normal Initial Vital Signs Initial Vital Signs: Vital Signs Temperature 97.9 F 08/24/21 14:30 Pulse Rate 89 08/24/21 14:30 Blood Pressure 192/100 H 08/24/21 14:30 Pulse Oximetry 99 08/24/21 14:30 Course Orders Ordered: ED Orders 08/24/21 15:36 CT abdomen pelvis w con Stat 08/24/21 16:15 Complete Blood Count AUTO DIFF Stat Comprehensive Metabolic Panel Stat Lipase Stat Lidocaine (Remove Lidocaine Patch) 1 each TOP 0630 KAMRAN Discontinued Medications Sodium Chloride (Normal Saline 0.9%) 1,000 mls @ 1,000 mls/hr IV BOLUS ONE Stop: 08/24/21 16:35 Last Admin: 08/24/21 16:03 Dose: 1,000 mls/hr Documented by: QUOC Ketorolac Tromethamine (Ketorolac 30 Mg/Ml Vial) 15 mg IV NOW ONE Stop: 08/24/21 16:57 Last Admin: 08/24/21 17:20 Dose: 15 mg Documented by: QUOC Lidocaine (Lidocaine Patch 1 Each Adh..Patch) 1 each TOP NOW ONE Stop: 08/24/21 18:31 Last Admin: 08/24/21 18:40 Dose: 1 each Documented by: QUOC Magnesium Citrate (Magnesium Citrate 300 Ml Solution) 300 ml PO NOW ONE Stop: 08/24/21 19:10 Last Admin: 08/24/21 19:32 Dose: 300 ml Documented by: TAHIR Methylnaltrexone [place] (Methylnaltrexone 12 Mg/0.6 Ml Vial) 8 mg SUBCUT NOW ONE Stop: 08/24/21 18:31 Last Admin: 08/24/21 18:40 Dose: 8 mg Documented by: QUOC Ondansetron HCl (Ondansetron 4 Mg Odt Prepack) 1 bottle MISC SEEINSTR ONE Stop: 08/24/21 19:26 Last Admin: 08/24/21 19:31 Dose: 1 bottle Documented by: TAHIR Potassium Chloride (Potassium Chloride 20 Meq Tab) 40 meq PO NOW ONE Stop: 08/24/21 16:57 Last Admin: 08/24/21 17:20 Dose: 40 meq Documented by: QUOC Reevaluation(s) Reevaluation #1: Patient pains mildly improved. We reviewed her labs and imaging today. She has tolerated oral potassium without issue. Discussed trying lidocaine patches for pain management. Patient was given Relistor. Has not had much change here but plan to also include magnesium citrate to try in the morning if she does not have improvement as there is nothing easily accessible for digital disimpaction. Vital Signs Vital signs: Vital Signs - 8 hr 08/24/21 14:30 08/24/21 15:05 08/24/21 15:06 Temperature 97.9 F Pulse Rate 89 90 Respiratory Rate 22 Blood Pressure 192/100 H 159/75 H Pulse Oximetry 99 100 08/24/21 15:30 08/24/21 16:00 08/24/21 16:30 Temperature Pulse Rate 90 92 H 101 H Respiratory Rate 35 H 25 H 40 H Blood Pressure Pulse Oximetry 99 93 08/24/21 17:00 08/24/21 17:25 08/24/21 17:30 Temperature Pulse Rate 84 91 H 84 Respiratory Rate 17 31 H 24 Blood Pressure 164/117 H Pulse Oximetry 100 100 100 08/24/21 18:00 08/24/21 18:30 08/24/21 19:46 Temperature Pulse Rate 77 96 H 90 Respiratory Rate 20 22 20 Blood Pressure 150/81 H Pulse Oximetry 100 100 97 MDM - Recheck/Abnormal Lab/Rx Lab Data Result diagrams: 08/24/21 16:15 08/24/21 16:15 Labs: Lab Results 01/18/22 01/18/22 Range/Units 16:15 16:15 WBC 5.0 (4.5-11.0) X10^3/uL RBC 3.84 L (4.0-5.2) X10^6/uL Hgb 11.6 L (12.0-16.0) g/dL Hct 34.7 L (36-46) % MCV 90.2 (80-100) fL MCH 30.2 (26-34) PG MCHC 33.4 (30-36) % RDW 13.6 (11.6-14.8) % Plt Count 214 (150-400) X10^3/uL Neut % (Auto) 68.1 (50-75) % Lymph % (Auto) 18.3 L (25-40) % [place] % (Auto) 12.0 (3-14) % Eos % (Auto) 1.3 L (2-4) % Baso % (Auto) 0.3 (0-2) % Neut # (Auto) 3400 (9809-4436) /uL Lymph # (Auto) 900 L (5737-4097) /uL [place] # (Auto) 600 (0-900) /uL Eos # (Auto) 100 (0-450) /uL Baso # (Auto) 0 (0-100) /uL Sodium 136 L (137-145) mmol/L Potassium 3.0 L (3.4-5.1) mmol/L Chloride 93 L (98-107) mmol/L Carbon Dioxide 44 H* (22-32) mmol/L BUN 9 (7-17) mg/dL Creatinine 0.49 L (0.52-1.04) mg/dL Estimated GFR > 60.0 (>60) mL/min BUN/Creatinine Ratio 18.4 (6-22) Glucose 98 (80-110) mg/dL Calcium 9.0 (8.4-10.2) mg/dL Total Bilirubin 0.4 (0.2-1.3) mg/dL AST 37 H (14-36) IU/L ALT 16 (<35) IU/L Alkaline Phosphatase 80 (38-126) U/L Total Protein 6.2 L (6.3-8.2) g/dL Albumin 3.5 (3.5-5.0) g/dL Globulin 2.7 (1.7-4.1) g/dL Albumin/Globulin Ratio 1.3 (1.0-2.8) Lipase 32 (23-300) U/L Urine Dip Bedside Urine Glucose Negative Bedside Urine Bilirubin - Negative Bedside Urine Ketone - Negative Urine Specific [place] 1.010 Bedside Urine Occult Blood - Negative Bedside Urine pH 7.5 Bedside Urine Protein - Negative Bedside Urine Urobilinogen - Negative Bedside Urine Nitrite - Negative Bedside Urine Leukocytes - Negative Esterase Imaging Data CT scan - abdomen/pelvis: Radiologist's Impression: Close Abdomen/Pelvis CT (Signed) MelindaManuelito - 08/24/21 Lumbar Spine MRI (Signed) Blu Brannon - 08/19/21 Abdomen/Pelvis CT (Signed) Ricky Cha - 08/19/21 Lumbar Spine MRI (Signed) Sophia Eckert - 07/21/21 Thoracic Spine MRI (Signed) Mac Mroeno - 07/21/21 Echocardiogram Ultrasound (Signed) Jeffrey Pantoja - 07/16/21 Lumbar Spine X-Ray (Signed) Cinthya Guajardo - 06/17/21 Chest/Abdomen/Pelvis CT (Signed) Cinthya Guajardo - 06/03/21 Abdomen Ultrasound (Signed) Brian See - 05/10/21 Hip X-Ray (Signed) Mika Small - 10/28/20 Pelvis Ultrasound (Signed) Sophia Eckert - 10/28/20 Abdomen Ultrasound (Signed) Manuelito Lawrence - 10/28/[address] (Signed) Ricky Cha - 09/01/20 Launch?[place] [address] CT Scan Report Signed Patient: Jazmine Gonzales MR#: [id number] : 1940 Acct:[id number] Age/Sex: 81 / F Date of Service: 08/24/21 Loc: ED Accession Number: [id number] ?? Procedure: CT abdomen pelvis w con Ordering Provider: Latasha Estrada D.O. PROCEDURE:? CT ABDOMEN PELVIS W CON ? INDICATIONS:? no BM x 1 week, no flatus, intermittent vomiting ? TECHNIQUE:? After the administration of IV contrast, axial sections were acquired from the lung bases to the pubic symphysis.? Coronal and sagittal reformats were performed.? For radiation dose reduction, the following was used:? automated exposure control, adjustment of mA and/or kV according to patient size. ? COMPARISON:? [facility], CT, CT ABDOMEN PELVIS W CON, 08/19/2021, 7:17. ? FINDINGS:? Image quality:? Excellent.? ? Lung bases:? No pleural effusion.? Mild lingular atelectasis. ? Heart:? No cardiomegaly.? Thickening at the distal esophagus is decreased. ? ? ABDOMEN: Liver:? Unremarkable.? ? Gallbladder:? Distended. Biliary ducts:? Unremarkable.? ? Pancreas:? Unremarkable.? ? Spleen:? Unremarkable.? ? Adrenal Glands:? No definite nodule.? ? Kidneys and Ureters:? No hydronephrosis.? ? ? Stomach and Bowel:? Stomach is not distended.? There is no small bowel obstruction.? There is mild diverticulosis.? Distention of the right and transverse colon with fecal residue.? The appendix is not distended.? The distal colon is not distended. Peritoneum:? No abnormal intraperitoneal fluid.? No free air.? ? Ventral Wall: ? No hernia.? Abdominal Nodes:? No retroperitoneal or mesenteric adenopathy by size criteria.? Vessels:? Severe atherosclerotic disease in the abdominal aorta which results in luminal narrowing. ? PELVIS: Pelvic Organs:? Uterus is absent.? ? Bladder:? No stones.? ? Pelvic Nodes: No enlarged lymph nodes.? Miscellaneous:? Small amount of fluid within the right inguinal hernia.? Small fat containing left inguinal hernia.? Findings are unchanged. ? ? ? Bones:? The T12 compression fracture is mild but appears progressed compared to 08/19/2021.? Moderate L3 compression fracture is unchanged.? Multilevel DDD. ? ? IMPRESSION:? 1. Right and transverse colon are mildly distended with fecal residue. ? 2. No small bowel obstruction. ? 3. Thickening at the distal esophagus is decreased. ? 4. Mild T12 compression fracture is slightly progressed.? Stable moderate L3 compression fracture. ? Dictated by: Manuelito Lawrence M.D. on 08/24/2021 at 16:17 ? ? Approved by: Manuelito Lawrence M.D. on 08/24/2021 at 16:27?? MDM Narrative Medical decision making narrative: This is an 81-year-old male who was seen earlier in the week with back pain patient had CT which showed compression fractures MRI was ordered as patient was quite uncomfortable which does not show any impingement or emergent changes. Patient was seen by PT at that time and was walking with a walker. She states she has been able to continue to walk with her walker home she has been taking oxycodone for pain but has had some persistent back pain but also constipation. Patient has had some occasional nausea and vomiting which is also present prior to her visit on the and has not passed any bowel movement or had flatus since then. CT abdomen pelvis was obtained for concern for constipation versus bowel obstruction which does show some constipation, no bowel obstruction and some possible slight change to thoracic compression fracture. We tried lidocaine patch to see if we can decrease her narcotic use. Relistor and possibly magnesium citrate as patient has already tried stool softeners, glycerin enema at home. Patient and I discussed plans and return precautions. Discharge Plan Departure Patient Disposition: Home Clinical Impression: Constipation, Hypokalemia, Compression fracture Instructions: DI for Constipation Activity Restrictions/Additional Instructions: Follow up with orthopedic surgery potential treatment for your compression fracture. Referral is included below specifically with Dr. Kaur. Please continue your stool softeners daily. You did receive an IV anti constipation medication today I would allow this to work overnight to see if there is any change. I would recommend drinking magnesium citrate, 1/2 bottle and then wait 4-5 hours and then repeat the 2nd half of the bottle if there is no stool output. Use lidocaine patch to the affected area daily. Prescription sent to [facility] in [place]. Please return for new or worsening back or abdominal pain, persistent vomiting, if you are not having any bowel movements in the next 24-48 hours, not passing gas or other new or concerning symptoms. Prescriptions: New lidocaine 5 % adhesive patch,medicated 1 patch topical DAILY PRN (Reason: pain) Qty: 30 0RF Rx Instructions: leave on most painful area for up to 12 hrs No Action oxycodone 5 mg tablet 5 mg PO QID PRN (Reason: pain) Qty: 20 0RF gabapentin 100 mg capsule 100 mg PO DAILY 0RF acetaminophen-codeine 300-15 mg tablet 1 tab PO Q6H PRN0RF fluticasone propion-salmeterol [Advair Diskus] 500-50 mcg/dose blister with device 1 inh inhalation BID 0RF furosemide [Lasix] 20 mg tablet 20 mg PO DAILY 0RF losartan 25 mg tablet 25 mg PO DAILY 0RF clopidogrel 75 mg tablet 75 mg PO DAILY 0RF simvastatin 20 mg tablet 20 mg PO DAILY 0RF carvedilol 12.5 mg tablet 12.5 mg PO BID 0RF Rx Instructions: must administer with a meal/food albuterol sulfate 2.5 mg /3 mL (0.083 %) solution for nebulization 2.5 mg inhalation Q4-6H PRN0RF cholecalciferol (vitamin D3) 25 mcg (1,000 unit) capsule 25 mcg PO DAILY 0RF vitamin B complex [B Complex-Vitamin B12] Tablet 1 tab PO DAILY 0RF levalbuterol HCl [Xopenex] 1.25 mg/3 mL solution for nebulization 1.25 mg inhalation Q4-6H PRN0RF Spiriva Respimat 1.25 mcg/actuation mist 2 puff inhalation DAILY 0RF [place] Saline Gel 1 applic topical BEDTIME PRN0RF aspirin [Adult Low Dose Aspirin] 81 mg tablet,delayed release (DR/EC) 81 mg PO DAILY 0RF Referrals: Emery Singer MD [Primary Care Provider] -
--- NOTE | 2021-08-24 15:36 | DI.CT.S_ITS ---
PROCEDURE: CT ABDOMEN PELVIS W CON INDICATIONS: no BM x 1 week, no flatus, intermittent vomiting TECHNIQUE: After the administration of IV contrast, axial sections were acquired from the lung bases to the pubic symphysis. Coronal and sagittal reformats were performed. For radiation dose reduction, the following was used: automated exposure control, adjustment of mA and/or kV according to patient size. COMPARISON: [facility], CT, CT ABDOMEN PELVIS W CON, 08/19/2021, 7:17. FINDINGS: Image quality: Excellent. Lung bases: No pleural effusion. Mild lingular atelectasis. Heart: No cardiomegaly. Thickening at the distal esophagus is decreased. ABDOMEN: Liver: Unremarkable. Gallbladder: Distended. Biliary ducts: Unremarkable. Pancreas: Unremarkable. Spleen: Unremarkable. Adrenal Glands: No definite nodule. Kidneys and Ureters: No hydronephrosis. Stomach and Bowel: Stomach is not distended. There is no small bowel obstruction. There is mild diverticulosis. Distention of the right and transverse colon with fecal residue. The appendix is not distended. The distal colon is not distended. Peritoneum: No abnormal intraperitoneal fluid. No free air. Ventral Wall: No hernia. Abdominal Nodes: No retroperitoneal or mesenteric adenopathy by size criteria. Vessels: Severe atherosclerotic disease in the abdominal aorta which results in luminal narrowing. PELVIS: Pelvic Organs: Uterus is absent. Bladder: No stones. Pelvic Nodes: No enlarged lymph nodes. Miscellaneous: Small amount of fluid within the right inguinal hernia. Small fat containing left inguinal hernia. Findings are unchanged. Bones: The T12 compression fracture is mild but appears progressed compared to 08/19/2021. Moderate L3 compression fracture is unchanged. Multilevel DDD. IMPRESSION: 1. Right and transverse colon are mildly distended with fecal residue. 2. No small bowel obstruction. 3. Thickening at the distal esophagus is decreased. 4. Mild T12 compression fracture is slightly progressed. Stable moderate L3 compression fracture. Dictated by: Manuelito Lawrence M.D. on 08/24/2021 at 16:17 Approved by: Manuelito Lawrence M.D. on 08/24/2021 at 16:27
[2021-08-24] MEDS: SODIUM CHLORIDE 0.9% 1,000 ML 1000 ML IV (16:03)
[2021-08-24 16:26] LABS: Add Manual Diff / Slide Review NO; Basophils Absolute Auto 0 /uL (0-100); Basophils Percent Auto 0.3 % (0-2); Eosinophils Absolute Auto 100 /uL (0-450); Eosinophils Percent Auto 1.3 % (2-4); Hematocrit 34.7 % (36-46); Hemoglobin 11.6 g/dL (12.0-16.0); Lymphocytes Absolute Auto 900 /uL (1100-4500); Lymphocytes Percent Auto 18.3 % (25-40); Mean Corpuscular HGB Conc 33.4 % (30-36); Mean Corpuscular Hemoglobin 30.2 PG (26-34); Mean Corpuscular Volume 90.2 fL (80-100); Monocytes Absolute Auto 600 /uL (0-900); Neutrophils Absolute Auto 3400 /uL (1500-7000); Neutrophils Percent Auto 68.1 % (50-75); Platelet Count 214 X10^3/uL (150-400); Red Blood Cell Count 3.84 X10^6/uL (4.0-5.2); Red Cell Distribution Width 13.6 % (11.6-14.8)
[2021-08-24 16:36] LABS: Alanine Aminotransferase 16 IU/L (<35); Albumin 3.5 g/dL (3.5-5.0); Albumin Globulin Ratio 1.3 (1.0-2.8); Alkaline Phosphatase 80 U/L (38-126); Aspartate Aminotransferase 37 IU/L (14-36); BUN Creatinine Ratio 18.4 (6-22); Bilirubin Total 0.4 mg/dL (0.2-1.3); Blood Urea Nitrogen 9 mg/dL (7-17); Chloride 93 mmol/L (98-107); Estimated Glomerular Filt Rate > 60.0 mL/min (>60); Globulin 2.7 g/dL (1.7-4.1); Glucose 98 mg/dL (80-110); HEMOLYSIS < 15 (0-50); Lipase 32 U/L (23-300); Sodium 136 mmol/L (137-145); Total Protein 6.2 g/dL (6.3-8.2)
[2021-08-24 16:44] LABS: Carbon Dioxide 44 mmol/L (22-32)
[2021-08-24] MEDS: KETOROLAC 30 MG/ML VIAL 15 MG IV (17:20)
[2021-08-24] MEDS: POTASSIUM CHLORIDE 20 MEQ TAB 40 MEQ PO (17:20)
[2021-08-24] MEDS: METHYLNALTREXONE 12 MG/0.6 ML VIAL 8 MG SUBCUT (18:40)
[2021-08-24] MEDS: LIDOCAINE PATCH 1 EACH ADH..PATCH TOP (18:40)
[2021-08-24] MEDS: ONDANSETRON 4 MG ODT PREPACK 1 BOTTLE MISC (19:31)
[2021-08-24] MEDS: MAGNESIUM CITRATE 300 ML SOLUTION PO (19:32)
== END 2021-08-24 20:18 | disposition home or self-care (01) ==
PROVIDERS: Emergency Provider Emergency Medicine; PCP Family Medicine
DX: K59.00 Constipation, unspecified (principal); E87.6 Hypokalemia; S22.080D Wedge compression fracture of T11-T12 vertebra, subsequent encounter for fracture with routine healing; Z79.01 Long term (current) use of anticoagulants; Z87.891 Personal history of nicotine dependence; X58.XXXD Exposure to other specified factors, subsequent encounter
CPT/HCPCS: 74177; 80053; 81003; 83690; 85025; 96361; 96372; 96374; 99284; J1885; Q9967

== ENCOUNTER → 2021-09-01 15:11 | Outpatient (CLI) | payer MEDICARE, OTHER, SELFPAY | PROVIDERS: PCP Family Medicine; Referring Provider Urology; Visit Provider Urology | DX: R30.0 Dysuria (principal) | CPT/HCPCS: 81002; 87086 ==

== ENCOUNTER 2021-09-11 22:48 | Observation (INO) | payer MEDICARE, OTHER, SELFPAY ==
[2021-09-11 22:53] VITALS: BP 137/89; PULSE 116; O2SAT 96
[2021-09-11 22:54] VITALS: BP 137/89; PULSE 117; RESP 18; TEMP 36.8; O2SAT 96; BMI 19.5
--- NOTE | 2021-09-11 22:56 | ED_ITS ---
HPI - Nausea/Vomiting/Diarrhea General Chief complaint: Nausea/Vomiting/Diarrhea Stated complaint: N/V/D weakness Time Seen by Provider: 09/11/21 22:56 History of Present Illness HPI Narrative: The patient is an 81-year-old female with history of COPD on home oxygen, CAD, hypertension, dyslipidemia, prior pelvic fracture, vaginal prolapse after hysterectomy difficulty with urination and voiding dysfunction presenting today with vomiting and diarrhea. She states she went to [facility] on September 09 at the request of her urologist for a catheterized urine. She then received a phone call stating that she need to be started on Macrobid. She says that she started Macrobid and took 1 medication and instantly has had multiple episodes of diarrhea today and vomiting. Unable to keep anything down. She actually has had at least 4 emergency department visits over the past few weeks and this is her 2nd this week. Related Data Home Medications Medication Instructions Recorded Confirmed albuterol sulfate 2.5 mg INHALATION Q4-6H PRN 08/17/21 09/12/21 aspirin 81 mg tablet,delayed 81 mg PO DAILY 08/17/21 09/12/21 release (Adult Low Dose Aspirin) carvedilol 12.5 mg tablet 12.5 mg PO DAILY 08/17/21 09/11/21 cholecalciferol (vitamin D3) 25 25 mcg PO DAILY 08/17/21 09/12/21 mcg (1,000 unit) capsule clopidogrel 75 mg tablet 75 mg PO DAILY 08/17/21 09/12/21 fluticasone 500 mcg-salmeterol 50 1 inh INHALATION BID 08/17/21 09/12/21 mcg/dose blistr powdr for inhalation (Advair Diskus) furosemide 20 mg tablet (Lasix) 20 mg PO DAILY 08/17/21 09/12/21 gabapentin 100 mg capsule 100 mg PO BEDTIME 08/17/21 09/12/21 levalbuterol HCl 1.25 mg/3 mL 1.25 mg INHALATION Q4-6H PRN 08/17/21 09/12/21 solution for nebulization (Xopenex) losartan 25 mg tablet 12.5 mg PO DAILY 08/17/21 09/11/21 simvastatin 20 mg tablet 20 mg PO DAILY 08/17/21 09/12/21 tiotropium bromide 1.25 1 puff INHALATION DAILY PRN 08/17/21 09/12/21 mcg/actuation mist for inhalation (Spiriva Respimat) vitamin B complex (B 2 tab PO DAILY 08/17/21 09/12/21 Complex-Vitamin B12) Previous Rx's Medication Instructions Recorded oxycodone 5 mg tablet 5 mg PO QID PRN #20 tab 08/19/21 lidocaine 5 % topical patch 1 patch TOPICAL DAILY PRN #30 ea 08/24/21 nitrofurantoin 100 mg PO BID #6 cap 09/06/21 monohydrate/macrocrystals 100 mg capsule (Macrobid) Allergies Allergy/AdvReac Type Severity Reaction Status Date / Time Sulfa (Sulfonamide Allergy Verified 09/11/21 22:57 Antibiotics) Review of Systems Review of Systems Narrative: GENERAL: Denies chills, fatigue, malaise, fever, sweats, travel HEENT: Denies sinus pain, ear pain, sore throat, difficulty swallowing, neck pain RESPIRATORY: Denies dyspnea, cough, wheezing, hemoptysis, sputum. CARDIOVASCULAR: Denies chest pain, palpitations, orthopnea, edema GASTROINTESTINAL: See HPI : Denies dysuria, frequency, incontinence, hematuria, urinary retention, flank pain. MUSCULOSKELETAL: Denies weakness, joint pain, or bony pain SKIN: No rash, no erythema, no pruritus NEUROLOGIC: Denies weakness, dizziness, headache, numbness, change in speech, confusion PSYCHIATRIC: No concerning psychosocial issues. 12 point review of systems is negative except for those stated above and HPI Patient History Medical History Anxiety Backache COPD (chronic obstructive pulmonary disease) Coronary arteriosclerosis Hyperlipidemia Hypertension complications Microscopic hematuria Osteoporosis Oxygen dependent Pelvic fracture Pelvic pain in female Peripheral vascular disease Pressure ulcer Right hip pain Vaginal vault prolapse after hysterectomy Vitamin D deficiency Voiding dysfunction Surgical History History of hysterectomy Family History Father Coronary artery disease Mother Coronary artery disease Diabetes mellitus Osteoarthritis Social History household members: spouse Smoking Status: Former smoker alcohol intake: former Smoking Status: Former smoker Substance Use Type: does not use Exam Initial Vital Signs Initial Vital Signs: Vital Signs Pulse Rate 116 H 09/11/21 22:53 Blood Pressure 137/89 09/11/21 22:53 Pulse Oximetry 96 09/11/21 22:53 GENERAL: Alert 81-year-old male chronically ill no acute distress HEENT: Head atraumatic,EOMI, pupils reactive, face symmetric, moist mucous membranes CARDIOVASCULAR: Regular rate and rhythm without murmurs, rubs or gallops. RESPIRATORY: Breath sounds equal bilaterally, no wheezes rales or rhonchi. ABDOMEN: Soft, nontender. Normoactive bowel sounds all 4 quadrants. No guarding or rebound. : No CVA tenderness EXTREMITIES: Normal range of motion, no clubbing or edema. Neurovascularly intact NEUROLOGICAL: Alert and oriented x4. Moving all extremities SKIN: Warm, dry, no laceration, no petechiae, no rashes or lesions. Course Orders Ordered: ED Orders 09/11/21 22:56 XR chest 1V Stat 09/11/21 22:57 EKG-12 Lead Stat 09/11/21 23:00 Complete Blood Count AUTO DIFF Stat Comprehensive Metabolic Panel Stat Lactate (Lactic Acid) Stat Procalcitonin Stat Troponin & CK Cardiac Panel Stat 09/11/21 23:14 Blood Culture Stat COVID19 -Nasal swab/Pre-Proc Stat Urinalysis and Microscopic Stat 09/12/21 00:49 CT abdomen pelvis w con Stat 09/12/21 01:01 Magnesium Urgent Education, smoking cessation ONGOING 09/12/21 01:06 Consult to Dietitian, Adult Routine 09/12/21 01:21 C Diff [Clostridium Difficile Tox PCR] Stat Stool Culture Stat 09/12/21 05:00 Complete Blood Count AUTO DIFF Routine Comprehensive Metabolic Panel Routine Acetaminophen (Acetaminophen 325 Mg Tablet) 650 mg PO Q6HR PRN PRN Reason: Fever/Mild Pain (1-3) Carvedilol (Carvedilol 12.5 Mg Tablet) 12.5 mg PO DAILY KAMRAN Clopidogrel Bisulfate (Clopidogrel 75 Mg Tablet) 75 mg PO DAILY KAMRAN Enoxaparin Sodium (Enoxaparin 30 Mg/0.3 Ml Syringe) 30 mg SUBCUT DAILY KAMRAN Gabapentin (Gabapentin 100 Mg Capsule) 100 mg PO BEDTIME KAMRAN Hydromorphone HCl (Hydromorphone 0.5 Mg Inj) 0.5 mg IV Q4H PRN PRN Reason: Pain, Severe (7-10) Magnesium Sulfate (Magnesium Sulfate) 2 gm in 50 mls @ 25 mls/hr IV NOW ONE Stop: 09/12/21 04:08 Last Admin: 09/12/21 03:16 Dose: 25 mls/hr Documented by: MARCIE Cosigned by: YUKI Sodium Chloride (Normal Saline 0.9%) 1,000 mls @ 84 mls/hr IV CONT KAMRAN Last Admin: 09/12/21 03:03 Dose: 84 mls/hr Documented by: MARCIE Lidocaine (Lidocaine Patch 1 Each Adh..Patch) 1 each TOP DAILY PRN PRN Reason: pain Losartan Potassium (Losartan 25 Mg Tablet) 12.5 mg PO DAILY [facility] Naloxone HCl (Naloxone 0.4 Mg/Ml Vial) 0.2 mg IV Q2MIN PRN PRN Reason: Opiate Reversal Non-Formulary Medication (Fluticasone Propion-Salmeterol [Advair Diskus]) 1 inhalation INHALATION BID KAMRAN Non-Formulary Medication (Levalbuterol Hcl [Xopenex]) 1.25 mg INHALATION Q4-6H PRN PRN Reason: Shortness Of Breath Non-Formulary Medication (Simvastatin) 20 mg PO DAILY [facility] Non-Formulary Medication (Tiotropium [place] [Spiriva Respimat]) 1 puff INHALATION DAILY PRN PRN Reason: Dyspnea Ondansetron HCl (Ondansetron 4 Mg/2 Ml Inj) 4 mg IV Q4HR PRN PRN Reason: Nausea And Vomiting Oxycodone HCl (Oxycodone Ir 5 Mg Tablet) 5 mg PO QID PRN PRN Reason: pain Discontinued Medications Carvedilol (Carvedilol 12.5 Mg Tablet) 12.5 mg PO NOW ONE Stop: 09/12/21 02:10 Last Admin: 09/12/21 03:02 Dose: 12.5 mg Documented by: MARCIE Hydromorphone HCl (Hydromorphone 0.5 Mg Inj) 0.5 mg IV NOW ONE Stop: 09/12/21 00:49 Last Admin: 09/12/21 01:57 Dose: Not Given Documented by: DYAN Hydromorphone HCl (Hydromorphone 1 Mg Inj) 0.5 mg IV NOW ONE Stop: 09/12/21 01:16 Last Admin: 09/12/21 01:09 Dose: 0.5 mg Documented by: MILLICENT Hydromorphone HCl (Hydromorphone 0.5 Mg Inj) 0.5 mg IV Q6H PRN PRN Reason: Pain, Moderate (4-6) Sodium Chloride (Normal Saline 0.9%) 1,000 mls @ 1,000 mls/hr IV BOLUS ONE Stop: 09/12/21 01:47 Last Infusion: 09/12/21 03:03 Dose: 0 mls/hr Documented by: Admin: 09/12/21 01:58 Dose: 1,000 mls/hr Documented by: DYAN Ondansetron HCl (Ondansetron 4 Mg/2 Ml Inj) 4 mg IV NOW ONE Stop: 09/12/21 01:01 Last Admin: 09/12/21 01:08 Dose: 4 mg Documented by: MILLICENT Pantoprazole Sodium (Pantoprazole 40 Mg Vial) 40 mg IV NOW ONE Stop: 09/12/21 00:52 Last Admin: 09/12/21 01:07 Dose: 40 mg Documented by: MILLICENT Vital Signs Vital signs: Vital Signs - 8 hr 09/11/21 22:53 09/11/21 22:54 09/11/21 23:00 Temperature 98.2 F Pulse Rate 116 H 117 H 115 H Respiratory Rate 18 27 H Blood Pressure 137/89 137/89 Pulse Oximetry 96 96 96 09/11/21 23:24 09/11/21 23:30 09/12/21 00:00 Temperature Pulse Rate 112 H 112 H 108 H Respiratory Rate 35 H 39 H 19 Blood Pressure 117/68 164/70 H 160/67 H Pulse Oximetry 97 96 100 09/12/21 00:30 09/12/21 01:00 09/12/21 01:32 Temperature Pulse Rate 110 H 115 H 118 H Respiratory Rate 19 29 H Blood Pressure 152/70 H 180/77 H Pulse Oximetry 97 97 MDM - Nausea/Vomiting/Diarrhea Lab Data Result diagrams: 09/11/21 23:00 09/11/21 23:00 Labs: Lab Results 09/11/21 09/11/21 09/11/21 Range/Units 23:00 23:00 23:00 WBC 9.3 (4.5-11.0) X10^3/uL RBC 4.03 (4.0-5.2) X10^6/uL Hgb 12.2 (12.0-16.0) g/dL Hct 36.5 (36-46) % MCV 90.5 (80-100) fL MCH 30.3 (26-34) PG MCHC 33.4 (30-36) % RDW 14.7 (11.6-14.8) % Plt Count 199 (150-400) X10^3/uL Neut % (Auto) 82.7 H (50-75) % Lymph % (Auto) 7.5 L (25-40) % [place] % (Auto) 7.7 (3-14) % Eos % (Auto) 1.3 L (2-4) % Baso % (Auto) 0.8 (0-2) % Neut # (Auto) 7700 H (6368-2128) /uL Lymph # (Auto) 700 L (4136-6080) /uL [place] # (Auto) 700 (0-900) /uL Eos # (Auto) 100 (0-450) /uL Baso # (Auto) 100 (0-100) /uL Sodium 140 (137-145) mmol/L Potassium 3.6 (3.4-5.1) mmol/L Chloride 105 (98-107) mmol/L Carbon Dioxide 34 H (22-32) mmol/L BUN 10 (7-17) mg/dL Creatinine 0.38 L (0.52-1.04) mg/dL Estimated GFR > 60.0 (>60) mL/min BUN/Creatinine Ratio 26.3 H (6-22) Glucose 93 (80-110) mg/dL Lactate 0.9 (0.7-2.1) mmol/L Calcium 9.4 (8.4-10.2) mg/dL Magnesium (1.6-2.3) mg/dL Total Bilirubin 0.6 (0.2-1.3) mg/dL AST 29 (14-36) IU/L ALT 13 (<35) IU/L Alkaline Phosphatase 118 (38-126) U/L Total Creatine Kinase 24 L (30-135) U/L CK-MB (CK-2) TNP CK-MB (CK-2) Rel Index TNP Troponin I 0.014 (0.01-0.034) ng/mL Total Protein 6.0 L (6.3-8.2) g/dL Albumin 3.3 L (3.5-5.0) g/dL Globulin 2.7 (1.7-4.1) g/dL Albumin/Globulin Ratio 1.2 (1.0-2.8) Procalcitonin 0.15 (<0.5) ng/mL Urine Color Urine Appearance Urine pH (4.5-8.0) Ur Specific [place] (1.000-1.035) Urine Protein (Negative) Urine Glucose (UA) (Negative) g/dL Urine Ketones (NEGATIVE) Urine Occult Blood (Negative) Urine Nitrate (Negative) Urine Bilirubin (NEGATIVE) Urine Urobilinogen (0.2) E.U./dL Ur Leukocyte Esterase (NEGATIVE) Urine RBC (0-5/HPF) Urine WBC (0-5/HPF) Urine Bacteria (None) Ur Culture Indicated? C. difficile Tox (PCR) (Negative) SARS-CoV-2 (PCR) (Negative) 09/11/21 09/11/21 09/11/21 Range/Units 23:00 23:14 23:14 WBC (4.5-11.0) X10^3/uL RBC (4.0-5.2) X10^6/uL Hgb (12.0-16.0) g/dL Hct (36-46) % MCV (80-100) fL MCH (26-34) PG MCHC (30-36) % RDW (11.6-14.8) % Plt Count (150-400) X10^3/uL Neut % (Auto) (50-75) % Lymph % (Auto) (25-40) % [place] % (Auto) (3-14) % Eos % (Auto) (2-4) % Baso % (Auto) (0-2) % Neut # (Auto) (1565-8964) /uL Lymph # (Auto) (0001-3317) /uL [place] # (Auto) (0-900) /uL Eos # (Auto) (0-450) /uL Baso # (Auto) (0-100) /uL Sodium (137-145) mmol/L Potassium (3.4-5.1) mmol/L Chloride (98-107) mmol/L Carbon Dioxide (22-32) mmol/L BUN (7-17) mg/dL Creatinine (0.52-1.04) mg/dL Estimated GFR (>60) mL/min BUN/Creatinine Ratio (6-22) Glucose (80-110) mg/dL Lactate (0.7-2.1) mmol/L Calcium (8.4-10.2) mg/dL Magnesium 1.4 L (1.6-2.3) mg/dL Total Bilirubin (0.2-1.3) mg/dL AST (14-36) IU/L ALT (<35) IU/L Alkaline Phosphatase (38-126) U/L Total Creatine Kinase (30-135) U/L CK-MB (CK-2) CK-MB (CK-2) Rel Index Troponin I (0.01-0.034) ng/mL Total Protein (6.3-8.2) g/dL Albumin (3.5-5.0) g/dL Globulin (1.7-4.1) g/dL Albumin/Globulin Ratio (1.0-2.8) Procalcitonin (<0.5) ng/mL Urine Color Yellow Urine Appearance Clear Urine pH 5.5 (4.5-8.0) Ur Specific [place] 1.025 (1.000-1.035) Urine Protein Negative (Negative) Urine Glucose (UA) Negative (Negative) g/dL Urine Ketones 3+ H (NEGATIVE) Urine Occult Blood 3+ H (Negative) Urine Nitrate Negative (Negative) Urine Bilirubin Negative (NEGATIVE) Urine Urobilinogen 0.2 (0.2) E.U./dL Ur Leukocyte Esterase Negative (NEGATIVE) Urine RBC 1-5/hpf (0-5/HPF) Urine WBC None seen (0-5/HPF) Urine Bacteria None seen (None) Ur Culture Indicated? Cult not indicated C. difficile Tox (PCR) (Negative) SARS-CoV-2 (PCR) Negative (Negative) 09/12/21 Range/Units 01:21 WBC (4.5-11.0) X10^3/uL RBC (4.0-5.2) X10^6/uL Hgb (12.0-16.0) g/dL Hct (36-46) % MCV (80-100) fL MCH (26-34) PG MCHC (30-36) % RDW (11.6-14.8) % Plt Count (150-400) X10^3/uL Neut % (Auto) (50-75) % Lymph % (Auto) (25-40) % [place] % (Auto) (3-14) % Eos % (Auto) (2-4) % Baso % (Auto) (0-2) % Neut # (Auto) (5575-4628) /uL Lymph # (Auto) (6448-0125) /uL [place] # (Auto) (0-900) /uL Eos # (Auto) (0-450) /uL Baso # (Auto) (0-100) /uL Sodium (137-145) mmol/L Potassium (3.4-5.1) mmol/L Chloride (98-107) mmol/L Carbon Dioxide (22-32) mmol/L BUN (7-17) mg/dL Creatinine (0.52-1.04) mg/dL Estimated GFR (>60) mL/min BUN/Creatinine Ratio (6-22) Glucose (80-110) mg/dL Lactate (0.7-2.1) mmol/L Calcium (8.4-10.2) mg/dL Magnesium (1.6-2.3) mg/dL Total Bilirubin (0.2-1.3) mg/dL AST (14-36) IU/L ALT (<35) IU/L Alkaline Phosphatase (38-126) U/L Total Creatine Kinase (30-135) U/L CK-MB (CK-2) CK-MB (CK-2) Rel Index Troponin I (0.01-0.034) ng/mL Total Protein (6.3-8.2) g/dL Albumin (3.5-5.0) g/dL Globulin (1.7-4.1) g/dL Albumin/Globulin Ratio (1.0-2.8) Procalcitonin (<0.5) ng/mL Urine Color Urine Appearance Urine pH (4.5-8.0) Ur Specific [place] (1.000-1.035) Urine Protein (Negative) Urine Glucose (UA) (Negative) g/dL Urine Ketones (NEGATIVE) Urine Occult Blood (Negative) Urine Nitrate (Negative) Urine Bilirubin (NEGATIVE) Urine Urobilinogen (0.2) E.U./dL Ur Leukocyte Esterase (NEGATIVE) Urine RBC (0-5/HPF) Urine WBC (0-5/HPF) Urine Bacteria (None) Ur Culture Indicated? C. difficile Tox (PCR) Negative for c. diff (Negative) SARS-CoV-2 (PCR) (Negative) Imaging Data Chest x-ray: Radiologist's Impression: PROCEDURE:? XR CHEST 1V ? INDICATIONS:? vomiting, copd ? TECHNIQUE:? One view of the chest was acquired.? ? COMPARISON:? [facility], , CHEST 2 VIEW, 11/22/2013, 13:04.? [facility], , CHEST 2 VIEW, 08/08/2012, 12:20. ? FINDINGS:? ? Surgical changes and devices:? None.? ? Lungs and pleura:? Lungs are clear.? No pleural effusions or pneumothorax.? ? Mediastinum:? Mediastinal contours appear normal.? Heart size is normal.? ? Bones and chest wall:? No suspicious bony lesions.? Overlying soft tissues appear unremarkable.? ? IMPRESSION:? Large lung volumes, no pneumonia found. ? ? Dictated by: Mika Small M.D. on 09/11/2021 at 23:28 ? ? Approved by: Mika Small M.D. on 09/11/2021 at 23:29 ? CT scan - abdomen/pelvis: Radiologist's Impression: PROCEDURE:? CT ABDOMEN PELVIS W CON ? INDICATIONS:? persistant vomiting ? TECHNIQUE:? After the administration of intravenous contrast, axial sections acquired from the lung bases to the pubic symphysis.? Coronal and sagittal reformats were performed.? For radiation dose reduction, the following was used:? automated exposure control, adjustment of mA and/or kV according to patient size.? ? COMPARISON:? [facility], CT, CT ABDOMEN PELVIS W CON, 08/24/2021, 15:38.? [facility], CT, CT ABDOMEN PELVIS W CON, 08/19/2021, 7:17. ? FINDINGS:? Image quality:? Excellent.? ? Lung bases:? Unremarkable. Heart:? No significant findings. ? ABDOMEN: Liver:? Unremarkable.? ? Gallbladder:? Unremarkable.? ? Biliary ducts:? Unremarkable.? ? Pancreas:? Unremarkable.? ? Spleen:? Unremarkable.? ? Adrenal Glands:? Unremarkable.? ? Kidneys and Ureters:? Unremarkable.? ? ? Stomach and Bowel:? Stomach, small bowel loops, and colon are unremarkable.? Peritoneum:? No abnormal intraperitoneal fluid.? No free air.? ? Ventral Wall: ? No hernias.? Abdominal Nodes:? No retroperitoneal or mesenteric adenopathy by size criteria.? Vessels:? Aorta and inferior vena cava are normal in size.? ? PELVIS: Pelvic Organs:? Unremarkable.? ? Bladder:? Unremarkable.? ? Pelvic Nodes: No enlarged lymph nodes.? Miscellaneous: No hernias are seen. ? ? ? Bones:? The previously identified T12 and L3 compression fractures are again noted, with mild further reduction of vertebral height at T12 now measuring 1.0 cm at the middle 3rd of the vertebral body, versus 1.5 cm 08/24/21.? No new compression fracture elsewhere is found..? IMPRESSION:? A source of persistent emesis is not identified.? Mild interval progression of a previously present presumed osteoporotic T12 compression fracture, stable appearance of a previously present L3 compression fracture also likely osteoporotic in origin.? No new compression fracture found. ? ? Dictated by: Mika Small M.D. on 09/12/2021 at 2:09 ? ? ECG Data Interpretation: Sinus tachycardia rate 111 right bundle-branch block noted no ST changes MDM Narrative Medical decision making narrative: Patient has had multiple urgency department visits. She says that there is infection although multiple urinalysis is show no infection. She had 1 urine culture on August 19 which did show Aerococcus Urinae, without culture and sensitivity. She is not septic today. Normal lactate no leukocytosis although she is consistently tachycardic. Normal BUN and creatinine. She overall does not feel well as a. She really does not have abdominal pain she has had some diarrhea. CT does not show any abnormality. At this time she feels like she is too weak to go home she is unable to tolerate any fluids and she continues to be tachycardic. Logan SALINAS in ED to see and evaluate patient. Discharge Plan Departure Patient Disposition: Admitted as Observation Clinical Impression: Vomiting and diarrhea Admit Date/Time: 09/12/21 01:52 Admit Provider: Jannie Ford
--- NOTE | 2021-09-11 22:56 | DI.RAD.S_ITS ---
PROCEDURE: XR CHEST 1V INDICATIONS: vomiting, copd TECHNIQUE: One view of the chest was acquired. COMPARISON: [facility], CHEST 2 VIEW, 11/22/2013, 13:04. [facility], , CHEST 2 VIEW, 08/08/2012, 12:20. FINDINGS: Surgical changes and devices: None. Lungs and pleura: Lungs are clear. No pleural effusions or pneumothorax. Mediastinum: Mediastinal contours appear normal. Heart size is normal. Bones and chest wall: No suspicious bony lesions. Overlying soft tissues appear unremarkable. IMPRESSION: Large lung volumes, no pneumonia found. Dictated by: Mika Small M.D. on 09/11/2021 at 23:28 Approved by: Mika Small M.D. on 09/11/2021 at 23:29
[2021-09-11 23:00] VITALS: PULSE 115; RESP 27; O2SAT 96
[2021-09-11 23:16] LABS: Add Manual Diff / Slide Review NO; Basophils Absolute Auto 100 /uL (0-100); Basophils Percent Auto 0.8 % (0-2); Eosinophils Absolute Auto 100 /uL (0-450); Eosinophils Percent Auto 1.3 % (2-4); Hematocrit 36.5 % (36-46); Hemoglobin 12.2 g/dL (12.0-16.0); Lymphocytes Absolute Auto 700 /uL (1100-4500); Lymphocytes Percent Auto 7.5 % (25-40); Mean Corpuscular HGB Conc 33.4 % (30-36); Mean Corpuscular Hemoglobin 30.3 PG (26-34); Mean Corpuscular Volume 90.5 fL (80-100); Monocytes Absolute Auto 700 /uL (0-900); Monocytes Percent Auto 7.7 % (3-14); Neutrophils Absolute Auto 7700 /uL (1500-7000); Neutrophils Percent Auto 82.7 % (50-75); Platelet Count 199 X10^3/uL (150-400); Red Blood Cell Count 4.03 X10^6/uL (4.0-5.2); Red Cell Distribution Width 14.7 % (11.6-14.8); White Blood Cell Count 9.3 X10^3/uL (4.5-11.0)
[2021-09-11 23:24] VITALS: BP 117/68; PULSE 112; RESP 35; O2SAT 97
[2021-09-11 23:25] LABS: Alanine Aminotransferase 13 IU/L (<35); Albumin 3.3 g/dL (3.5-5.0); Albumin Globulin Ratio 1.2 (1.0-2.8); Alkaline Phosphatase 118 U/L (38-126); Aspartate Aminotransferase 29 IU/L (14-36); BUN Creatinine Ratio 26.3 (6-22); Bilirubin Total 0.6 mg/dL (0.2-1.3); Blood Urea Nitrogen 10 mg/dL (7-17); Calcium 9.4 mg/dL (8.4-10.2); Carbon Dioxide 34 mmol/L (22-32); Chloride 105 mmol/L (98-107); Creatine Kinase 24 U/L (30-135); Estimated Glomerular Filt Rate > 60.0 mL/min (>60); Globulin 2.7 g/dL (1.7-4.1); Glucose 93 mg/dL (80-110); HEMOLYSIS < 15 (0-50); Lactate (Lactic Acid) 0.9 mmol/L (0.7-2.1); Potassium 3.6 mmol/L (3.4-5.1); Sodium 140 mmol/L (137-145)
[2021-09-11 23:26] LABS: Appearance Urine UA CLEAR; Bilirubin Urine UA NEGATIVE (NEGATIVE); Color Urine UA YELLOW; Glucose Urine UA NEGATIVE (Negative); Ketones Urine UA 3+ (NEGATIVE); Leukocyte Esterase Urine UA NEGATIVE (NEGATIVE); Nitrite Urine UA NEGATIVE (Negative); Occult Blood Urine UA 3+ (Negative); Protein Urine UA NEGATIVE (Negative); Specific Gravity Urine UA 1.025 (1.000-1.035); Urobilinogen Urine UA 0.2 E.U./dL (0.2)
[2021-09-11 23:30] VITALS: BP 164/70; PULSE 112; RESP 39; O2SAT 96
[2021-09-11 23:32] LABS: Bacteria Urine None Seen; Culture Indicated Urine Cult Not Indicated; RBC Urine 1-5/HPF (0-5/HPF); WBC Urine None Seen (0-5/HPF); pH Urine UA 5.5 (4.5-8.0)
[2021-09-11 23:34] LABS: COVID19 -Nasal RAPID Negative (Negative)
[2021-09-11 23:36] LABS: Troponin I 0.014 ng/mL (0.01-0.034)
[2021-09-11 23:41] LABS: Procalcitonin 0.15 ng/mL (<0.5)
[2021-09-12] VITALS (20 sets, daily range): BP systolic 112–183; BP diastolic 56–89; PULSE 89–118; RESP 14–29; TEMP 35.9–37.1; O2SAT 93–100; BMI 21.3
--- NOTE | 2021-09-12 00:49 | DI.CT.S_ITS ---
PROCEDURE: CT ABDOMEN PELVIS W CON INDICATIONS: persistant vomiting TECHNIQUE: After the administration of intravenous contrast, axial sections acquired from the lung bases to the pubic symphysis. Coronal and sagittal reformats were performed. For radiation dose reduction, the following was used: automated exposure control, adjustment of mA and/or kV according to patient size. COMPARISON: , CT, CT ABDOMEN PELVIS W CON, 08/24/2021, 15:38. , CT, CT ABDOMEN PELVIS W CON, 08/19/2021, 7:17. FINDINGS: Image quality: Excellent. Lung bases: Unremarkable. Heart: No significant findings. ABDOMEN: Liver: Unremarkable. Gallbladder: Unremarkable. Biliary ducts: Unremarkable. Pancreas: Unremarkable. Spleen: Unremarkable. Adrenal Glands: Unremarkable. Kidneys and Ureters: Unremarkable. Stomach and Bowel: Stomach, small bowel loops, and colon are unremarkable. Peritoneum: No abnormal intraperitoneal fluid. No free air. Ventral Wall: No hernias. Abdominal Nodes: No retroperitoneal or mesenteric adenopathy by size criteria. Vessels: Aorta and inferior vena cava are normal in size. PELVIS: Pelvic Organs: Unremarkable. Bladder: Unremarkable. Pelvic Nodes: No enlarged lymph nodes. Miscellaneous: No hernias are seen. Bones: The previously identified T12 and L3 compression fractures are again noted, with mild further reduction of vertebral height at T12 now measuring 1.0 cm at the middle 3rd of the vertebral body, versus 1.5 cm 08/24/21. No new compression fracture elsewhere is found.. IMPRESSION: A source of persistent emesis is not identified. Mild interval progression of a previously present presumed osteoporotic T12 compression fracture, stable appearance of a previously present L3 compression fracture also likely osteoporotic in origin. No new compression fracture found. Dictated by: Mika Small M.D. on 09/12/2021 at 2:09 Approved by: Mika Small M.D. on 09/12/2021 at 2:13
[2021-09-12] MEDS: PANTOPRAZOLE 40 MG VIAL IV (01:07)
[2021-09-12] MEDS: ONDANSETRON 4 MG/2 ML INJ IV ×4 (01:08→21:31)
[2021-09-12] MEDS: HYDROMORPHONE 1 MG INJ 0.5 MG IV ×4 (01:09→21:33)
[2021-09-12 01:20] LABS: Magnesium 1.4 mg/dL (1.6-2.3)
--- NOTE | 2021-09-12 01:55 | PC.NURSE ---
, [place]on, has been notified of her staying
--- NOTE | 2021-09-12 01:57 | P.HP_ITS ---
History of Present Illness History of Present Illness Date Patient Seen: 09/12/21 Time Patient Seen: 01:04 Chief complaint: N/V/D weakness Narrative: Jazmine Gonzales is a 81-year-old female with history of COPD on home oxygen, 60yr+ppd smoker, CAD on plavix, hypertension, dyslipidemia, prior pelvic fracture, vaginal prolapse after hysterectomy difficulty with urination and voiding dysfunction presented to the ED today with vomiting and diarrhea.?The patient reports following a visit to [facility] for a catheterized urine, she was then contacted by her urologist Dr. Freitas and started on macrobid.? She started the macrobid on Sunday 09/10, and after taking one tab she developed nausea and vomiting throughout the day, then starting today she had continued nausea, vomiting followed diarrhea. The patient also reports being slightly more short of breath than normal. She reports that she takes her Advair twice a day, and uses her Xopenex inhaler several times a day, and also nebulize's albuterol 4 times a day, and has not been using her Spiriva. She states the only other changes to her medication besides the Macrobid was starting her oxycodone within the last month, this is not reflected on her confirmed medication list on her last visit with Dr. Freitas 08/17/2021. Patient denies fever body aches, chills, chest pain, abdominal pain, hematuria, hematemesis, melena, dysuria, urgency, frequency, changes in bowel, peripheral edema, recent illness, injury, or trauma. Patient's slightly hypertensive and tachycardic upon admit, likely secondary to not taking her medication today and dehydration secondary to vomiting: Temp 98.2?, BP 152/70, HR 110, R 19, O2 saturation 97% on 3 L nasal cannula. Patient is normally on 3 L nasal cannula at home. Patient's CBC and CMP are grossly within normal limits with the exception of low creatinine 0.38, lactate, procalcitonin, and troponin are all within normal limits. Patient's total creatinine kinase is slightly decreased at 24, total protein 6.0, albumin 3.3. Patient's urinalysis is negative. Patient does have a mildly decreased magnesium 1.4. Patient's chest x-ray is negative for any acute cardiopulmonary process, results of patient's abdominal chest pelvis CT was negative for any source of persistent emesis. Patient is resting comfortably in bed in no distress, admitted for observation for intractable nausea/vomiting/diarrhea of unknown etiology. Patient History Medical History Anxiety Backache COPD (chronic obstructive pulmonary disease) Coronary arteriosclerosis Hyperlipidemia Hypertension complications Microscopic hematuria Osteoporosis Oxygen dependent Pelvic fracture Pelvic pain in female Peripheral vascular disease Pressure ulcer Right hip pain Vaginal vault prolapse after hysterectomy Vitamin D deficiency Voiding dysfunction Surgical History History of hysterectomy Family & Social History Family History Father Coronary artery disease Mother Coronary artery disease Diabetes mellitus Osteoarthritis Social History: household members spouse,family Safety & Behavioral: Feels Safe in Current Yes Environment Been Physically Hurt or No Threatened By a Person Tobacco & Substance use: Smoking Status Former smoker 6-yrs+ 1ppd Substance Use Type does not use Meds Home Medications and Allergies Home Medications Medication Instructions Recorded Confirmed Type acetaminophen 300 mg-codeine 15 mg 1 tab PO Q6H PRN 08/17/21 08/17/21 History tablet albuterol sulfate 2.5 mg INHALATION Q4-6H PRN 08/17/21 09/12/21 History aspirin 81 mg tablet,delayed 81 mg PO DAILY 08/17/21 09/12/21 History release (Adult Low Dose Aspirin) carvedilol 12.5 mg tablet 12.5 mg PO DAILY 08/17/21 09/11/21 History cholecalciferol (vitamin D3) 25 25 mcg PO DAILY 08/17/21 09/12/21 History mcg (1,000 unit) capsule clopidogrel 75 mg tablet 75 mg PO DAILY 08/17/21 09/12/21 History fluticasone 500 mcg-salmeterol 50 1 inh INHALATION BID 08/17/21 09/12/21 History mcg/dose blistr powdr for inhalation (Advair Diskus) furosemide 20 mg tablet (Lasix) 20 mg PO DAILY 08/17/21 09/12/21 History gabapentin 100 mg capsule 100 mg PO BEDTIME 08/17/21 09/12/21 History levalbuterol HCl 1.25 mg/3 mL 1.25 mg INHALATION Q4-6H PRN 08/17/21 09/12/21 History solution for nebulization (Xopenex) losartan 25 mg tablet 12.5 mg PO DAILY 08/17/21 09/11/21 History simvastatin 20 mg tablet 20 mg PO DAILY 08/17/21 09/12/21 History sodium chloride-aloe vera nasal 1 applic TOPICAL BEDTIME PRN 08/17/21 08/17/21 History gel ([place] Saline) tiotropium bromide 1.25 2 puff INHALATION DAILY 08/17/21 08/17/21 History mcg/actuation mist for inhalation (Spiriva Respimat) vitamin B complex (B 1 tab PO DAILY 08/17/21 08/17/21 History Complex-Vitamin B12) oxycodone 5 mg tablet 5 mg PO QID PRN #20 tab 08/19/21 09/12/21 Rx lidocaine 5 % topical patch 1 patch TOPICAL DAILY PRN #30 ea 08/24/21 09/12/21 Rx nitrofurantoin 100 mg PO BID #6 cap 09/06/21 09/12/21 Rx monohydrate/macrocrystals 100 mg capsule (Macrobid) Allergies Allergy/AdvReac Type Severity Reaction Status Date / Time Sulfa (Sulfonamide Allergy Verified 09/11/21 22:57 Antibiotics) Review of Systems Review of Systems Narrative: All 12 point systems reviewed with the patient and are negative except otherwise documented. Exam Vital Signs (past 8 hours): - 09/11/21 22:53 09/11/21 22:54 09/11/21 23:00 Temperature 98.2 F Pulse Rate 116 H 117 H 115 H Respiratory Rate 18 27 H Blood Pressure 137/89 137/89 Pulse Oximetry 96 96 96 09/11/21 23:24 09/11/21 23:30 09/12/21 00:00 Temperature Pulse Rate 112 H 112 H 108 H Respiratory Rate 35 H 39 H 19 Blood Pressure 117/68 164/70 H 160/67 H Pulse Oximetry 97 96 100 09/12/21 00:30 Temperature Pulse Rate 110 H Respiratory Rate 19 Blood Pressure 152/70 H Pulse Oximetry 97 Oxygen Delivery Method Nasal Cannula Oxygen Flow Rate 3 Narrative Exam Narrative: General: Patient is a thin, frail, elderly female in no acute distress at this time. HEENT: Normocephalic, atraumatic, extraocular muscles intact, oral pharynx is clear and mucous membranes are moist. Neck is supple and symmetric, trachea is midline, no adenopathy, no thyroid enlargement, nontender, no masses palpated. Negative for JVD Chest: no nasal flaring, retractions, or tachypneic labored breathing. Patient does become slightly more SOB and labored with speaking. Able to speak 4-5 words at a time. Lungs: Auscultation of all lung olvera decreased, coarse but equal, poor air exchange, wheezing, on expiration left upper lobe. Cardio: Tachycardic rate and rhythm without murmur, rubs, or gallops, no carotid bruit, no cardiac pulsations present. Abdomen: Soft nontender. Bowel sounds are present in all 4 quadrants without guarding or rebound, no CVA tenderness. Musculoskeletal: Muscle strength and tone are equal within normal limits, no deformity, crepitus, effusions, cyanosis, clubbing or edema present. Full range of motion intact radial and pedal pulses are normal. Skin: Warm dry and intact without rashes, ulcerations or petechiae. Peripheral chronic venous stasis of lower extremities. Neuro: Alert and orientated x3,sensation to touch intact, no gross deficits noted of cranial nerves. Psych: Patient has a moderate-kept appearance, appropriate affect, mental status attitude thought context and judgment are appropriate for age. Objective Labs Result Diagrams: 09/11/21 23:00 09/11/21 23:00 Labs: Laboratory Results - last 24 hr 09/11/21 09/11/21 09/11/21 23:00 23:00 23:00 WBC 9.3 RBC 4.03 Hgb 12.2 Hct 36.5 MCV 90.5 MCH 30.3 MCHC 33.4 RDW 14.7 Plt Count 199 Neut % (Auto) 82.7 H Lymph % (Auto) 7.5 L [place] % (Auto) 7.7 Eos % (Auto) 1.3 L Baso % (Auto) 0.8 Neut # (Auto) 7700 H Lymph # (Auto) 700 L [place] # (Auto) 700 Eos # (Auto) 100 Baso # (Auto) 100 Sodium 140 Potassium 3.6 Chloride 105 Carbon Dioxide 34 H BUN 10 Creatinine 0.38 L Estimated GFR > 60.0 BUN/Creatinine Ratio 26.3 H Glucose 93 Lactate 0.9 Calcium 9.4 Magnesium Total Bilirubin 0.6 AST 29 ALT 13 Alkaline Phosphatase 118 Total Creatine Kinase 24 L CK-MB (CK-2) TNP CK-MB (CK-2) Rel Index TNP Troponin I 0.014 Total Protein 6.0 L Albumin 3.3 L Globulin 2.7 Albumin/Globulin Ratio 1.2 Procalcitonin 0.15 Urine Color Urine Appearance Urine pH Ur Specific [place] Urine Protein Urine Glucose (UA) Urine Ketones Urine Occult Blood Urine Nitrate Urine Bilirubin Urine Urobilinogen Ur Leukocyte Esterase Urine RBC Urine WBC Urine Bacteria Ur Culture Indicated? SARS-CoV-2 (PCR) 09/11/21 09/11/21 09/11/21 23:00 23:14 23:14 WBC RBC Hgb Hct MCV MCH MCHC RDW Plt Count Neut % (Auto) Lymph % (Auto) [place] % (Auto) Eos % (Auto) Baso % (Auto) Neut # (Auto) Lymph # (Auto) [place] # (Auto) Eos # (Auto) Baso # (Auto) Sodium Potassium Chloride Carbon Dioxide BUN Creatinine Estimated GFR BUN/Creatinine Ratio Glucose Lactate Calcium Magnesium 1.4 L Total Bilirubin AST ALT Alkaline Phosphatase Total Creatine Kinase CK-MB (CK-2) CK-MB (CK-2) Rel Index Troponin I Total Protein Albumin Globulin Albumin/Globulin Ratio Procalcitonin Urine Color Yellow Urine Appearance Clear Urine pH 5.5 Ur Specific [place] 1.025 Urine Protein Negative Urine Glucose (UA) Negative Urine Ketones 3+ H Urine Occult Blood 3+ H Urine Nitrate Negative Urine Bilirubin Negative Urine Urobilinogen 0.2 Ur Leukocyte Esterase Negative Urine RBC 1-5/hpf Urine WBC None seen Urine Bacteria None seen Ur Culture Indicated? Cult not indicated SARS-CoV-2 (PCR) Negative Assessment & Plan Assessment & Plan narrative: Jazmine Gonzales is a 81-year-old female with history of COPD on home oxygen, 60yr+ppd smoker, CAD on plavix, hypertension, dyslipidemia, prior pelvic fracture, vaginal prolapse after hysterectomy difficulty with urination and voiding dysfunction, who is admitted for observation for intractable vomiting and diarrhea of unknown etiology. 1. Intractable vomiting and diarrhea, acute, resulting in hypomagnesia, acute, present on admission -unknown etiology possibly reaction to Macrobid and/or reported pain medication (oxycodone), rule out sources of possible infection. -blood cultures, stool cultures, C diff :Ordered -rehydration 1 L bolus given in ED, continue patient on NS 84 cc/HR -continue antiemetics-Zofran to control nausea and vomiting -urinalysis was negative for UTI will not continue antibiotic at this time. -magnesium 1.3, ordered 2g Mag rider -Monitor electrolytes, recheck a CBC in a.m. 2. Tachycardia, mild, acute, present on admission -heart rates rangin-118 -Suspect likely due to vomiting/dehydration and not having taken her medications. 3. Respiratory failure secondary to COPD, acute on chronic, secondary to history of tobacco abuse, present on admission-stable no exacerbation noted -patient is normally on 3.5 L N/C at home, patient is currently on 3 L nasal cannula satting 97%. -discussed with patient regarding her overuse of albuterol nebulization 4 times a day. -Patient to be given re-education upon discharge regarding appropriate use of her respiratory medications, and f/u with her pulmonogist. -continue patient's Advair 50 mcg b.i.d., Spiriva q.day, albuterol HFA inhaler- sparingly, patient may use Xopenex from home. -will hold patient's Lasix at this time-no fluid overload or peripheral edema noted upon exam. -Resp Consult 4. Essential hypertension, acute on chronic, secondary to, Coronary artery disease. chronic, secondary to hyperlipidemia, chronic, present on admission -presenting the p's 180/77, 183/76, 152/70 -continue carvedilol 12.5 mg b.i.d., -Plavix 75 mg q.d., -losartan 25 mg q.d., -simvastatin 5. Chronic pain secondary to history of pelvic fracture, chronic, present on admission -continue gabapentin 6. Patient is malnourished evidence by BMI of 21.4, acute on chronic, present on admission -dietary consult placed Code status:Full Surrogate decision maker:Spouse Donavon Christian COVID PCR:Negative COVID vaccination: Unknown DVT/VTE prophylaxis:neal 30 & SCD's Disposition: Patient admitted for observation expected length of stay less than 2 midnights. I have utilized all available immediate resources to obtain, update, or review the patient's current medications. I confirmed that the patient's advanced care plan is present, Code status is documented and/or surrogate decision maker is listed in the patient's medical r ecord. Time Spent With Patient Critical Care time: I spent a total of [] minutes of critical care time on this patient's care today; this time is exclusive of procedural time.
[2021-09-12] MEDS: SODIUM CHLORIDE 0.9% 1,000 ML 1000 ML IV (01:58)
[2021-09-12 02:34] LABS: Clostridium Difficile Tox PCR Negative for C. diff (Negative)
[2021-09-12] MEDS: carvediloL 12.5 MG TABLET PO ×2 (03:02→21:32)
[2021-09-12] MEDS: SODIUM CHLORIDE 0.9% 1,000 ML 84 ML IV ×2 (03:03→15:00)
[2021-09-12] MEDS: MAGNESIUM SULFATE 2 GM/50 ML PIGGYBACK IV (03:16)
--- NOTE | 2021-09-12 05:14 | PC.ADMIT ---
Patient admitted at 0210 to room 206 per stretcher from ER. Came to ER related to nausea, vomiting and diarrhea at home. ER sent stool for c-diff which was negative. Patient is alert and oriented; soft spoken. Wears glasses but did not bring them with her. Breath sounds coarse but CTA with sat of 93% on oxygen at 3L/min per NC; uses O2 at home at 3.5L/min. HRR but tachy at 118 bpm and BP elevated at 183/76 so was medicated with Coreg. Denied nausea at time of admission but after being up to [facility] she states she gets nauseated related to chronic back pain but declined need for antiemetic. BT present and abdomen is soft; non-tender. Is able to move herself in bed although is very slow with movements but does not want staff to help due to discomfort. Assisted to BSC with 1 assist; declined use of walker when getting up to commode but agreeable to using when getting back to bed and did much better with mobility using walker. Denied dysuria, frequency or urgency with urination. Scattered bruises on all extremities and noted mottling of bilateral LE which becomes worse when up to commode. Erythemic skin on chest and rash noted under left breast. Bilateral calf SCD's were applied. Did complain of 9/10 pain and Logan SALINAS, contacted for pain medication order but upon return to room to give, patient asleep. Did awaken at 0441 and was medicated with IV Dilaudid and is currently asleep. Fall risk score is high and bed alarm is activated. [address] Admission Note: The patient,Jazmine Gonzales,81 y/o, was given written information regarding hospital policies, unit procedures and contact persons. Patient's smoking status: Former smoker. Vital Signs - 8 hr 09/11/21 22:53 09/11/21 22:54 09/11/21 23:00 Temperature 98.2 F Pulse Rate 116 H 117 H 115 H Respiratory Rate 18 27 H Blood Pressure 137/89 137/89 Pulse Oximetry 96 96 96 09/11/21 23:24 09/11/21 23:30 09/12/21 00:00 Temperature Pulse Rate 112 H 112 H 108 H Respiratory Rate 35 H 39 H 19 Blood Pressure 117/68 164/70 H 160/67 H Pulse Oximetry 97 96 100 09/12/21 00:30 09/12/21 01:00 09/12/21 01:32 Temperature Pulse Rate 110 H 115 H 118 H Respiratory Rate 19 29 H Blood Pressure 152/70 H 180/77 H Pulse Oximetry 97 97 09/12/21 02:00 09/12/21 02:10 09/12/21 03:02 Temperature 98.7 F Pulse Rate 112 H 118 H 118 H Respiratory Rate 19 17 Blood Pressure 183/76 H 183/76 H Pulse Oximetry 97 93 09/12/21 03:05 Temperature Pulse Rate 118 H Respiratory Rate 17 Blood Pressure Pulse Oximetry 93
[2021-09-12 06:06] LABS: Add Manual Diff / Slide Review NO; Basophils Absolute Auto 0 /uL (0-100); Basophils Percent Auto 0.3 % (0-2); Eosinophils Absolute Auto 100 /uL (0-450); Eosinophils Percent Auto 1.2 % (2-4); Hematocrit 31.5 % (36-46); Hemoglobin 10.4 g/dL (12.0-16.0); Lymphocytes Absolute Auto 800 /uL (1100-4500); Lymphocytes Percent Auto 11.1 % (25-40); Mean Corpuscular HGB Conc 33.1 % (30-36); Mean Corpuscular Hemoglobin 30.3 PG (26-34); Mean Corpuscular Volume 91.7 fL (80-100); Monocytes Absolute Auto 600 /uL (0-900); Neutrophils Absolute Auto 5300 /uL (1500-7000); Neutrophils Percent Auto 78.4 % (50-75); Platelet Count 170 X10^3/uL (150-400); Red Blood Cell Count 3.44 X10^6/uL (4.0-5.2); Red Cell Distribution Width 14.8 % (11.6-14.8); White Blood Cell Count 6.8 X10^3/uL (4.5-11.0)
[2021-09-12 06:18] LABS: Alanine Aminotransferase 10 IU/L (<35); Albumin 2.5 g/dL (3.5-5.0); Albumin Globulin Ratio 1.1 (1.0-2.8); Alkaline Phosphatase 98 U/L (38-126); Aspartate Aminotransferase 25 IU/L (14-36); Bilirubin Total 0.3 mg/dL (0.2-1.3); Blood Urea Nitrogen 6 mg/dL (7-17); Calcium 8.1 mg/dL (8.4-10.2); Carbon Dioxide 27 mmol/L (22-32); Chloride 108 mmol/L (98-107); Estimated Glomerular Filt Rate > 60.0 mL/min (>60); Globulin 2.2 g/dL (1.7-4.1); Glucose 83 mg/dL (80-110); HEMOLYSIS < 15 (0-50); Potassium 3.4 mmol/L (3.4-5.1); Sodium 138 mmol/L (137-145); Total Protein 4.7 g/dL (6.3-8.2)
[2021-09-12] MEDS: ALBUTEROL 2.5 MG/3 ML NEB (ADULT) INH (08:56)
[2021-09-12] MEDS: IPRATROPIUM 0.5 MG/2.5 ML NEB 1.5 MG INH (08:56)
[2021-09-12] MEDS: BUDESONIDE 0.5 MG/2 ML NEB INH ×2 (09:07→19:17)
[2021-09-12] MEDS: ENOXAPARIN 30 MG/0.3 ML SYRINGE SUBCUT (11:39)
[2021-09-12] MEDS: ALBUTEROL/IPRATROPIUM 3 ML AMPUL INH ×4 (12:15→23:31)
--- NOTE | 2021-09-12 22:26 | PC.NURSE ---
Pt c/o feeling nauseous, no vomiting today or diarrhea. Pt only taking ice chips and sips. zofram given tonight, along with dilaudid 0.5 mg ivp. Tonight pt didn't wanted to take any of her pain meds. Pt encouraged to take her carvedilol
[2021-09-13] VITALS (8 sets, daily range): BP systolic 99–126; BP diastolic 51–63; PULSE 94–100; RESP 14–18; TEMP 36.7–36.9; O2SAT 94–99
[2021-09-13] MEDS: SODIUM CHLORIDE 0.9% 1,000 ML 84 ML IV (02:17)
[2021-09-13] MEDS: HYDROMORPHONE 1 MG INJ 0.5 MG IV ×2 (02:30→07:36)
[2021-09-13 07:35] LABS: BUN Creatinine Ratio 15.4 (6-22); Blood Urea Nitrogen 8 mg/dL (7-17); Calcium 9.3 mg/dL (8.4-10.2); Carbon Dioxide 24 mmol/L (22-32); Chloride 109 mmol/L (98-107); Estimated Glomerular Filt Rate > 60.0 mL/min (>60); Glucose 62 mg/dL (80-110); HEMOLYSIS < 15 (0-50); Magnesium 1.8 mg/dL (1.6-2.3); Potassium 3.7 mmol/L (3.4-5.1); Sodium 140 mmol/L (137-145)
[2021-09-13] MEDS: ONDANSETRON 4 MG/2 ML INJ IV (07:36)
[2021-09-13] MEDS: ASPIRIN EC 81 MG TABLET PO (08:08)
[2021-09-13] MEDS: carvediloL 12.5 MG TABLET PO (08:08)
[2021-09-13] MEDS: CLOPIDOGREL 75 MG TABLET PO (08:09)
[2021-09-13] MEDS: ATORVASTATIN 20 MG TABLET 10 MG PO (08:09)
[2021-09-13] MEDS: ENOXAPARIN 30 MG/0.3 ML SYRINGE SUBCUT (08:10)
[2021-09-13] MEDS: BUDESONIDE 0.5 MG/2 ML NEB INH (08:51)
[2021-09-13] MEDS: ALBUTEROL/IPRATROPIUM 3 ML AMPUL INH (08:51)
--- NOTE | 2021-09-13 11:26 | PM.DS.1 ---
History of Present Illness History of Present Illness Chief complaint: N/V/D weakness Narrative: Jazmine Gonzales is a 81-year-old female with history of COPD on home oxygen, 60yr+ppd smoker, CAD on plavix, hypertension, dyslipidemia, prior pelvic fracture, vaginal prolapse after hysterectomy difficulty with urination and voiding dysfunction presented to the ED today with vomiting and diarrhea.?The patient reports following a visit to [facility] for a catheterized urine, she was then contacted by her urologist Dr. Freitas and started on macrobid.? She started the macrobid on Sunday 09/10, and after taking one tab she developed nausea and vomiting throughout the day, then starting today she had continued nausea, vomiting followed diarrhea.? The patient also reports being slightly more short of breath than normal.? She reports that she takes her Advair twice a day, and uses her Xopenex inhaler several times a day, and also nebulize's albuterol 4 times a day, and has not been using her Spiriva.? She states the only other changes to her medication besides the Macrobid was starting her oxycodone within the last month, this is not reflected on her confirmed medication list on her last visit with Dr. Freitas 08/17/2021. Patient denies fever body aches, chills, chest pain, abdominal pain, hematuria, hematemesis, melena, dysuria, urgency, frequency, changes in bowel, peripheral edema, recent illness, injury, or trauma. Patient's slightly hypertensive and tachycardic upon admit, likely secondary to not taking her medication today and dehydration secondary to vomiting: Temp 98.2?, BP 152/70, HR 110, R 19, O2 saturation 97% on 3 L nasal cannula.? Patient is normally on 3 L nasal cannula at home.? Patient's CBC and CMP are grossly within normal limits with the exception of low creatinine 0.38, lactate, procalcitonin, and troponin are all within normal limits.? Patient's total creatinine kinase is slightly decreased at 24, total protein 6.0, albumin 3.3.? Patient's urinalysis is negative.? Patient does have a mildly decreased magnesium 1.4.? Patient's chest x-ray is negative for any acute cardiopulmonary process, results of patient's abdominal chest pelvis CT was negative for any source of persistent emesis.? Patient is resting comfortably in bed in no distress, admitted for observation for intractable nausea/vomiting/diarrhea of unknown etiology. Discharge Providers Provider Date of admission: 09/12/21 01:52 Discharge Date: 09/13/21 Primary care physician: Emery Singer MD Consults: 09/12/21 01:06 Consult to Dietitian, Adult Routine Comment: Reason For Exam: under wt BMI19.5 09/12/21 02:35 Consult to Dietitian, Adult Routine Comment: Reason For Exam: MNA score = 11 Consult to Pastoral Services Routine Comment: patient request 09/12/21 02:36 Consult to Respiratory Therapy Evaluate & Treat Comment: as needed COPD on home 02 (3.5L) Physician Instructions: Evaluate and treat 09/12/21 22:52 Consult to [employer]TER - [employer] Routine Comment: I believe this is a failure to thrive-? SE[employer]TER Consult: Behavioral Health Assess End of Life/Goal Care Dis Discharge provider: Usman Christine MD Summary Hospital Course Discharge Diagnosis: 1. Intractable nausea, vomiting and diarrhea, possible side effect to Macrobid, resolved 2. Hypomagnesemia, corrected 3. Chronic hypoxic respiratory failure on home O2, stable 4. Essential hypertension 5. Coronary artery disease 6. Protein calorie malnourished minute 7. Vaginal prolapse Patient was admitted due to reported symptoms of nausea, vomiting and diarrhea following taking 1 dose of Macrobid. She was provided IV fluids, Zofran. She did not have any episodes of vomiting or diarrhea during her hospital stay. No evidence of UTI. She had low magnesium on ED labs which was corrected with IV magnesium. Follow-up morning blood work was unremarkable. Patient generally does not feel well but has no indication for continued hospitalization. She is supposed to get outpatient cystoscopy with Dr. Freitas. Status at Discharge Cognitive/behavioral status at discharge: oriented Functional status at discharge: independent ambulation Overall status at discharge: patient is back to baseline Exam Vital Signs (past 8 hours): - 09/13/21 03:36 09/13/21 04:00 09/13/21 05:22 Temperature 98.4 F 98.3 F Pulse Rate 94 H 94 H 99 H Respiratory Rate 16 16 18 Blood Pressure 104/51 L 114/52 L Pulse Oximetry 97 97 97 09/13/21 08:08 09/13/21 08:24 09/13/21 08:54 Temperature 98.2 F Pulse Rate 99 H 99 H 98 H Respiratory Rate 14 16 Blood Pressure 99/54 L 99/54 L Pulse Oximetry 96 99 Oxygen Delivery Method Nasal Cannula Oxygen Flow Rate 3 Narrative Exam Narrative: General: Alert, NAD Lungs: Clear Abdomen: Soft, nontender Extremities: No edema Objective Labs Result Diagrams: 09/12/21 05:38 09/13/21 07:03 Labs: Laboratory Results - last 24 hr 09/13/21 07:03 Sodium 140 Potassium 3.7 Chloride 109 H Carbon Dioxide 24 BUN 8 Creatinine 0.52 Estimated GFR > 60.0 BUN/Creatinine Ratio 15.4 Glucose 62 L Calcium 9.3 Magnesium 1.8 PFSH Medical History Anxiety Backache COPD (chronic obstructive pulmonary disease) Coronary arteriosclerosis Hyperlipidemia Hypertension complications Microscopic hematuria Osteoporosis Oxygen dependent Pelvic fracture Pelvic pain in female Peripheral vascular disease Pressure ulcer Right hip pain Vaginal vault prolapse after hysterectomy Vitamin D deficiency Voiding dysfunction Surgical History History of hysterectomy Family History Father Coronary artery disease Mother Coronary artery disease Diabetes mellitus Osteoarthritis Social History household members: spouse Smoking Status: Former smoker alcohol intake: former Discharge Plan Discharge Plan Patient Disposition: Home Provider Discharge Comment: You were admitted for overnight observation due to symptoms of nausea, vomiting and diarrhea. Lab, urine and CT scan results have been normal. Diet as tolerated. Follow up with PCP. Follow up with Dr Freitas's office on cystoscopy scheduling. Home health services were ordered as well. Discharge orders & Medications Prescriptions: New ondansetron 4 mg tablet,disintegrating 4 mg PO Q6H PRN (Reason: nausea and vomiting) Qty: 20 0RF Continued nitrofurantoin monohyd/m-cryst [Macrobid] 100 mg capsule 100 mg PO BID Qty: 6 0RF Rx Instructions: must administer with a meal/food oxycodone 5 mg tablet 5 mg PO QID PRN (Reason: pain) Qty: 20 0RF lidocaine 5 % adhesive patch,medicated 1 patch topical DAILY PRN (Reason: pain) Qty: 30 0RF Rx Instructions: leave on most painful area for up to 12 hrs gabapentin 100 mg capsule 100 mg PO BEDTIME 0RF fluticasone propion-salmeterol [Advair Diskus] 500-50 mcg/dose blister with device 1 inh inhalation BID 0RF furosemide [Lasix] 20 mg tablet 20 mg PO DAILY 0RF losartan 25 mg tablet 12.5 mg PO DAILY 0RF clopidogrel 75 mg tablet 75 mg PO DAILY 0RF simvastatin 20 mg tablet 20 mg PO DAILY 0RF carvedilol 12.5 mg tablet 12.5 mg PO DAILY 0RF Rx Instructions: must administer with a meal/food albuterol sulfate 2.5 mg /3 mL (0.083 %) solution for nebulization 2.5 mg inhalation Q4-6H PRN (Reason: Shortness Of Breath) 0RF cholecalciferol (vitamin D3) 25 mcg (1,000 unit) capsule 25 mcg PO DAILY 0RF vitamin B complex [B Complex-Vitamin B12] Tablet 2 tab PO DAILY 0RF levalbuterol HCl [Xopenex] 1.25 mg/3 mL solution for nebulization 1.25 mg inhalation Q4-6H PRN (Reason: Shortness Of Breath) 0RF Spiriva Respimat 1.25 mcg/actuation mist 1 puff inhalation DAILY PRN (Reason: Dyspnea) 0RF aspirin [Adult Low Dose Aspirin] 81 mg tablet,delayed release (DR/EC) 81 mg PO DAILY 0RF Follow up/Referrals: Emery Singer MD [Primary Care Provider] - (*Appt on Monday @2:45 with [phone]) Isaias Freitas MD [Physician] - As previously scheduled Diet/Activity/Treatments Diet: Regular Discharge Data Primary Care Provider: Emery Singer Attending Provider: Jannie Ford
--- NOTE | 2021-09-13 11:36 | CM.DANOTE ---
DCP: Case received, EMR reviewed and met with patient. Introduced self and role. Was able to obtain informaiton regarding patient's baseline activity status prior to hospitalization, as well as her current living situation. DCP assessment completed with information currently available. Patient is an 81 year old female who admitted yesterday morning to the care of the hospitalist team. PCP: Dr. Singer. Payer: confimed: Medicare/[employer]. Patient came to the hospital via ambulance secondary to having nausea, vomiting, as well as weakness. According to notes, patient had been sent to [facility] due to the advice of her urologist, Dr. Freitas. They wanted a urine sample to rule out UTI, and the sample had been contaminated. They were sending her there for a UA sample via cath. Prior, patient had been placed on Macrobid and had developed nausea and vomiting. Patient has history of COPD. Met with patient in her room. She resides in [place] with her spouse, Donavon. She is alert and oriented, and is on home oxygen for COPD through [facility]. She has a FWW for home use, she did indicated, she has been driving up until she got sick. She is worried about going home, she still doesn't feel well. Dr. Christine has cleared her that she is stable for discharge. Asked her if she was interested in home health, and she stated, I think we have it, there's a pamplet at home. She called her and asked which home health agency that the pamphlet stated. stated, it's [facility]. Called Olga at [facility] and she indicated that they were going to see her, but she couldn't urinate, and they had to call 911. She indicated that they will need new face to face and orders. After speaking to patient, will add RN, and P.T, O.T, and bath aide. She will be having a cystocopy outpatient according to Dr. Christine. P: Patient has discharge orders. Will complete face to face, orders, and send face sheet as well, H&P, and DC Summary to [facility] for RN, P.T, O.T, and bath aide. Irish Rivera RN/Multi Craft Maintenance Technician Discharge Planning/Care Management CM Discharge Assessment Start: 09/13/21 11:35 Freq: Status: Active Protocol: Document 09/13/21 11:35 (Rec: 09/13/21 11:36 [id number]) Discharge Planning Assessment Assigned Preschool Assistant Teacher Irish Rivera RN/Multi Craft Maintenance Technician Advance Directives? No History Provided By Patient,Medical Record Prior Living Arrangements House Household Members spouse Type of transporation used prior to Relies on Others admit Independent with ADL's Yes Is patient alert and oriented? Yes Needs Assistance With Meal Prep,Home Chores / Shopping Caregiver for Another No DME Already Rented / Owned FWW / Walker Patient/Family Preference Home with Home Health Barriers to Discharge No Discharge Plan Home with Home Health Transportation Arrangement Family Referrals Initiated Home Health If patient plan is home with home health Yes : Has signed face to face form been completed? Whiteboard Updated in Patient Room with Yes name and ext. # of Preschool Assistant Teacher Review Status In Process Next Review Type Continued Stay Review
--- NOTE | 2021-09-13 12:47 | PC.NURSE ---
Discharge Note Patient A&O, VSS, 3L NC per baseline. No complaints of pain/discomfort. Discharge packet reviewed with patient, all questions/concerns addressed. Patient /daughter updated on discharge instructions, reminded family to pharmacy picking technician prescription on way home. PIV discontinued. All belongings packed and given to patient along with discharge packet. Patient assisted to dress. Patient taken down via wheelchair to POV.
== END 2021-09-13 12:45 | disposition home or self-care (01) ==
LOC: ED 23:35 → AC 09-12 01:53
PROVIDERS: Internal Medicine; Admitting Provider Nurse Practitioner Family; Emergency Provider Emergency Medicine; PCP Family Medicine; Referring Provider Emergency Medicine; Visit Provider Nurse Practitioner Family
DX: R11.2 Nausea with vomiting, unspecified (principal); R19.7 Diarrhea, unspecified; J96.11 Chronic respiratory failure with hypoxia; J44.9 Chronic obstructive pulmonary disease, unspecified; Z99.81 Dependence on supplemental oxygen; I10 Essential (primary) hypertension; E78.5 Hyperlipidemia, unspecified; I25.10 Atherosclerotic heart disease of native coronary artery without angina pectoris; F17.210 Nicotine dependence, cigarettes, uncomplicated; Z20.822 Contact with and (suspected) exposure to COVID-19
CPT/HCPCS: 36415; 71045; 74177; 80048; 80053; 81001; 82550; 83605; 83735; 84145; 84484; 85025; 87040; 87045; 87493; 87635; 87899; 93005; 93010; 94640; 94760; 96361; 96365; 96366; 96372; 96375; 96376; 99284; 99285; 99406; C9803; G0378; C9113; J1170; J1650; J2405; J3475; J7613; Q9967

== ENCOUNTER → 2021-09-20 13:52 | Outpatient (CLI) | payer MEDICARE, OTHER, SELFPAY ==
[2021-09-12 02:22] VITALS: BMI 21.3
[2021-09-20 14:34] LABS: Appearance Urine UA SL CLOUDY; Bilirubin Urine UA NEGATIVE (NEGATIVE); Color Urine UA YELLOW; Glucose Urine UA NEGATIVE (Negative); Ketones Urine UA NEGATIVE (NEGATIVE); Leukocyte Esterase Urine UA NEGATIVE (NEGATIVE); Nitrite Urine UA NEGATIVE (Negative); Occult Blood Urine UA TRACE-LYSED (Negative); Protein Urine UA NEGATIVE (Negative)
[2021-09-20 14:51] LABS: Amorphous Sediment Urine 2+; Bacteria Urine None Seen; Culture Indicated Urine Cult Not Indicated; RBC Urine 0-1/HPF (0-5/HPF); Squamous Epithelial Cell Urine 1-5 /HPF (0-5/HPF); Transitional Epi Cells Urine 0-1/HPF (0-5/HPF); WBC Urine 0-1/HPF (0-5/HPF); pH Urine UA 7.5 (4.5-8.0)
== END ==
PROVIDERS: PCP Family Medicine; Referring Provider Specialist; Visit Provider Specialist
DX: R31.29 Other microscopic hematuria (principal)
CPT/HCPCS: 81001

== ENCOUNTER 2021-09-28 11:23 | Emergency (ER) | payer MEDICARE, OTHER, SELFPAY ==
[2021-09-12 02:22] VITALS: BMI 21.3
[2021-09-28] VITALS (20 sets, daily range): BP systolic 116–138; BP diastolic 58–88; PULSE 80–99; RESP 17–39; TEMP 36.6; O2SAT 91–98; BMI 21.4
--- NOTE | 2021-09-28 11:44 | DI.RAD.S_ITS ---
PROCEDURE: XR CHEST 1V INDICATIONS: shortness of breath TECHNIQUE: One view of the chest was acquired. COMPARISON: [facility], CHEST 2 VIEW, 08/08/2012, 12:20. [facility], CHEST 2 VIEW, 11/22/2013, 13:04. [facility], XR CHEST 1V, 09/11/2021, 23:02. FINDINGS: Surgical changes and devices: None. Lungs and pleura: Lungs are clear. No pleural effusions or pneumothorax. Mediastinum: Mediastinal contours appear normal. Heart size is normal. Atherosclerotic calcification of the aortic arch is noted. Bones and chest wall: Age-appropriate bony degenerative changes are seen. No suspicious bony lesions. Overlying soft tissues appear unremarkable. IMPRESSION: Unremarkable portable chest for age. Dictated by: Brian See M.D. on 09/28/2021 at 11:05 Approved by: Brian See M.D. on 09/28/2021 at 11:06
[2021-09-28 11:55] LABS: COVID19 -Nasal RAPID Negative (Negative)
[2021-09-28 12:24] LABS: Add Manual Diff / Slide Review NO; Basophils Absolute Auto 0 /uL (0-100); Basophils Percent Auto 0.2 % (0-2); Eosinophils Absolute Auto 300 /uL (0-450); Hematocrit 35.3 % (36-46); Hemoglobin 11.3 g/dL (12.0-16.0); Lymphocytes Absolute Auto 900 /uL (1100-4500); Lymphocytes Percent Auto 10.6 % (25-40); Mean Corpuscular HGB Conc 32.1 % (30-36); Mean Corpuscular Hemoglobin 29.7 PG (26-34); Mean Corpuscular Volume 92.7 fL (80-100); Monocytes Absolute Auto 1100 /uL (0-900); Monocytes Percent Auto 12.6 % (3-14); Neutrophils Absolute Auto 6200 /uL (1500-7000); Neutrophils Percent Auto 73.6 % (50-75); Platelet Count 205 X10^3/uL (150-400); Red Blood Cell Count 3.81 X10^6/uL (4.0-5.2); Red Cell Distribution Width 16.1 % (11.6-14.8); White Blood Cell Count 8.4 X10^3/uL (4.5-11.0)
--- NOTE | 2021-09-28 12:26 | ED_ITS ---
HPI - SOB/Dyspnea <Conchita Hardin PA-C - Last Filed: 09/28/21 20:23> General Chief Complaint: Shortness of Breath/Dyspnea Stated Complaint: SOB x3 days Time Seen by Provider: 09/28/21 11:58 Source: patient and EMS Mode of arrival: EMS Limitations: no limitations History of Present Illness HPI Narrative: 81-year-old female with past medical history COPD, osteoporosis, hyperlipidemia, hypertension, CAD, peripheral vascular disease, vertebral fractures, anxiety presents to the ED with 3 days of worsening shortness of breath. Patient states she has COPD, is on 3.5 L of oxygen at home, uses multiple inhalers. Patient states that despite the oxygen and inhalers, Nathan shortness of breath has worsened over the last 3 days, she feels pain mostly in her back and has trouble getting a full breath. Patient endorses a cough but no sputum. Also endorses nausea and vomiting, lightheadedness. Patient denies fever, chills, chest pain, abdominal pain, dysuria, flank pain, syncope. Patient was hospitalized on 09/11/2021 for intractable nausea and vomiting, which was likely a side effect of Macrobid. Patient was discharged home on 09/13/2021. Patient has some ongoing urinary incontinence issues for which she has a upcoming appointment with the urologist. Related Data Home Medications Medication Instructions Recorded Confirmed albuterol sulfate 2.5 mg INHALATION Q4-6H PRN 08/17/21 09/24/21 aspirin 81 mg tablet,delayed 81 mg PO DAILY 08/17/21 09/24/21 release (Adult Low Dose Aspirin) carvedilol 12.5 mg tablet 12.5 mg PO DAILY 08/17/21 09/24/21 cholecalciferol (vitamin D3) 25 25 mcg PO DAILY 08/17/21 09/24/21 mcg (1,000 unit) capsule clopidogrel 75 mg tablet 75 mg PO DAILY 08/17/21 09/24/21 fluticasone 500 mcg-salmeterol 50 1 inh INHALATION BID 08/17/21 09/24/21 mcg/dose blistr powdr for inhalation (Advair Diskus) furosemide 20 mg tablet (Lasix) 20 mg PO DAILY 08/17/21 09/24/21 gabapentin 100 mg capsule 100 mg PO BEDTIME 08/17/21 09/24/21 levalbuterol HCl 1.25 mg/3 mL 1.25 mg INHALATION Q4-6H PRN 08/17/21 09/24/21 solution for nebulization (Xopenex) losartan 25 mg tablet 12.5 mg PO DAILY 08/17/21 09/24/21 simvastatin 20 mg tablet 20 mg PO DAILY 08/17/21 09/24/21 tiotropium bromide 1.25 1 puff INHALATION DAILY PRN 08/17/21 09/24/21 mcg/actuation mist for inhalation (Spiriva Respimat) vitamin B complex (B 2 tab PO DAILY 08/17/21 09/24/21 Complex-Vitamin B12) Previous Rx's Medication Instructions Recorded oxycodone 5 mg tablet 5 mg PO QID PRN #20 tab 08/19/21 lidocaine 5 % topical patch 1 patch TOPICAL DAILY PRN #30 ea 08/24/21 ondansetron 4 mg disintegrating 4 mg PO Q6H PRN #20 tab 09/13/21 tablet cefpodoxime 200 mg tablet 200 mg PO BID 10 Days #20 tab 09/28/21 ondansetron 4 mg disintegrating 4 mg PO Q8H PRN #14 tab 09/28/21 tablet prednisone 50 mg tablet 50 mg PO DAILY 5 Days #5 tab 09/28/21 Allergies Allergy/AdvReac Type Severity Reaction Status Date / Time nitrofurantoin Allergy Verified 09/24/21 09:49 [From Macrobid] Sulfa (Sulfonamide Allergy Verified 09/24/21 09:49 Antibiotics) Review of Systems <Conchita Hardin PA-C - Last Filed: 09/28/21 20:23> Review of Systems ROS Unobtainable: All systems reviewed & are unremarkable except as noted in HPI and below Constitutional Constitutional: Denies chills, Denies fatigue, Denies fever(s), Denies frequent falls, Denies lethargy and Denies weakness Eyes Eyes: Denies change in vision, Denies eye discharge, Denies irritation and Denies loss of vision ENT Ears, Nose, Mouth, and Throat: Denies change in voice, Denies dizziness, Denies neck pain, Denies sore throat and Denies throat swelling Cardiovascular Cardiovascular: Denies chest pain, Denies irregular heart rhythm, Reports lightheadedness, Denies palpitations, Reports dyspnea, Reports dyspnea on exertion and Denies orthopnea Respiratory Respiratory: Reports cough, Reports dyspnea, Reports dyspnea on exertion and Denies wheezing Gastrointestinal Gastrointestinal: Denies abdominal pain, Denies change in bowel habits, Denies diarrhea, Reports nausea and Reports vomiting Genitourinary Genitourinary: Denies hematuria, Denies flank pain, Reports urinary incontinence and Denies urinary urgency Musculoskeletal Musculoskeletal: Denies back pain, Denies muscle weakness, Denies neck pain, Denies numbness and Denies tingling Integumentary/Breasts Skin/Breast: Denies pruritus, Denies erythema, Denies rash and Denies wounds Neurologic Neurologic: Denies behavioral changes, Denies confusion, Denies dizziness, Denies frequent falls, Denies loss of vision, Denies numbness, Denies tingling and Denies weakness Psychiatric Psychiatric: Denies anxiety, Denies behavioral changes, Denies confusion, Denies depression, Denies homicidal ideation and Denies suicidal ideation Endocrine Endocrine: Denies fatigue, Denies flushing and Denies palpitations Hematologic/Lymphatic Hematologic/Lymphatic: Denies easy bruising Allergic/Immunologic Allergic/Immunologic: Denies urticaria, Denies throat swelling and Denies wheezing Patient History <Conchita Hardin PA-C - Last Filed: 09/28/21 20:23> Medical History Anxiety Backache COPD (chronic obstructive pulmonary disease) Coronary arteriosclerosis Hyperlipidemia Hypertension complications Microscopic hematuria Osteoporosis Oxygen dependent Pelvic fracture Pelvic pain in female Peripheral vascular disease Pressure ulcer Right hip pain Vaginal vault prolapse after hysterectomy Vitamin D deficiency Voiding dysfunction Surgical History History of hysterectomy Family History Father Coronary artery disease Mother Coronary artery disease Diabetes mellitus Osteoarthritis Social History household members: spouse Smoking Status: Former smoker alcohol intake: former Smoking Status: Former smoker Substance Use Type: does not use Exam <Conchita Hardin PA-C - Last Filed: 09/28/21 20:23> Initial Vital Signs Initial Vital Signs: Vital Signs Temperature 97.8 F 09/28/21 11:31 Pulse Rate 87 09/28/21 11:31 Respiratory Rate 22 09/28/21 11:31 Blood Pressure 138/88 09/28/21 11:31 Pulse Oximetry 93 09/28/21 11:31 Const General: cooperative, healthy appearing and comfortable [facility] Head: normal to inspection Eyes General: appearance normal, both eyes and all related structures Neck Neck: normal visual inspection Chest Chest: normal inspection of the chest Resp Effort & Inspection: able to speak in complete sentences (on 4L on oxygen in the ED) and labored Auscultation: crackles (diffuse) bilaterally and no wheezes Cardio Rate: regular rate Rhythm: regular rhythm GI Other: Abdomen is soft, nondistended, nontender to palpation. No CVA tenderness. General: No CVA tenderness Back/Spine/Pelvis Back: normal to inspection Skin General: no rashes or lesions noted Neuro General: patient alert, patient awake and patient oriented x3 Psych Appearance: grossly normal Mental Status: mental status grossly normal <Peewee Wilkinson DO - Last Filed: 09/29/21 07:08> Initial Vital Signs Initial Vital Signs: Vital Signs Temperature 97.8 F 09/28/21 11:31 Pulse Rate 87 09/28/21 11:31 Respiratory Rate 09/28/21 11:31 Blood Pressure 138/88 09/28/21 11:31 Pulse Oximetry 93 09/28/21 11:31 Course <Conchita Hardin PA-C - Last Filed: 09/28/21 20:23> Orders Ordered: Discontinued Medications Albuterol/Ipratropium (Albuterol/Ipratropium 3 Ml Ampul) 3 ml INH NOW ONE Stop: 09/28/21 12:28 Last Admin: 09/28/21 12:43 Dose: 3 ml Documented by: KATERYNA Albuterol/Ipratropium (Albuterol/Ipratropium 3 Ml Ampul) 3 ml INH NOW ONE Stop: 09/28/21 16:05 Last Admin: 09/28/21 16:13 Dose: 3 ml Documented by: KATERYNA Methylprednisolone (Methylprednisolone 125 Mg/2 Ml Vial) 125 mg IV NOW ONE Stop: 09/28/21 12:29 Last Admin: 09/28/21 12:40 Dose: 125 mg Documented by: CARMEN Ondansetron HCl (Ondansetron 4 Mg/2 Ml Inj) 4 mg IV NOW ONE Stop: 09/28/21 12:31 Last Admin: 09/28/21 12:41 Dose: 4 mg Documented by: CARMEN Oxycodone/Acetaminophen (Oxycodone/Acetaminophen 5/325 Tablet) 1 tab PO NOW ONE Stop: 09/28/21 16:03 Last Admin: 09/28/21 16:26 Dose: 1 tab Documented by: CARMEN Vital Signs Vital signs: Vital Signs - 8 hr 09/28/21 12:30 09/28/21 12:46 09/28/21 13:00 Pulse Rate 82 85 Respiratory Rate 18 20 Blood Pressure 122/59 L 137/63 Pulse Oximetry 97 97 96 09/28/21 13:30 09/28/21 14:30 09/28/21 15:00 Pulse Rate 81 85 82 Respiratory Rate 22 19 19 Blood Pressure 116/59 L Pulse Oximetry 95 96 96 09/28/21 15:30 09/28/21 16:00 09/28/21 16:20 Pulse Rate 81 90 Respiratory Rate 18 Blood Pressure Pulse Oximetry 97 92 93 09/28/21 16:30 09/28/21 17:00 09/28/21 17:30 Pulse Rate 93 H 96 H 92 H Respiratory Rate Blood Pressure 116/68 Pulse Oximetry 91 91 94 09/28/21 18:00 09/28/21 18:30 09/28/21 19:00 Pulse Rate 91 H 94 H 93 H Respiratory Rate 19 18 Blood Pressure Pulse Oximetry 96 96 93 09/28/21 19:30 Pulse Rate 99 H Respiratory Rate Blood Pressure 127/81 Pulse Oximetry 92 <Peewee Wilkinson DO - Last Filed: 09/29/21 07:08> Orders Ordered: Discontinued Medications Albuterol/Ipratropium (Albuterol/Ipratropium 3 Ml Ampul) 3 ml INH NOW ONE Stop: 09/28/21 12:28 Last Admin: 09/28/21 12:43 Dose: 3 ml Documented by: KATERYNA Albuterol/Ipratropium (Albuterol/Ipratropium 3 Ml Ampul) 3 ml INH NOW ONE Stop: 09/28/21 16:05 Last Admin: 09/28/21 16:13 Dose: 3 ml Documented by: KATERYNA Methylprednisolone (Methylprednisolone 125 Mg/2 Ml Vial) 125 mg IV NOW ONE Stop: 09/28/21 12:29 Last Admin: 09/28/21 12:40 Dose: 125 mg Documented by: CARMEN Ondansetron HCl (Ondansetron 4 Mg/2 Ml Inj) 4 mg IV NOW ONE Stop: 09/28/21 12:31 Last Admin: 09/28/21 12:41 Dose: 4 mg Documented by: CARMEN Oxycodone/Acetaminophen (Oxycodone/Acetaminophen 5/325 Tablet) 1 tab PO NOW ONE Stop: 09/28/21 16:03 Last Admin: 09/28/21 16:26 Dose: 1 tab Documented by: CARMEN Vital Signs Vital signs: Vital Signs - 8 hr 09/28/21 12:30 09/28/21 12:46 09/28/21 13:00 Pulse Rate 82 85 Respiratory Rate 18 20 Blood Pressure 122/59 L 137/63 Pulse Oximetry 97 97 96 09/28/21 13:30 09/28/21 14:30 09/28/21 15:00 Pulse Rate 81 85 82 Respiratory Rate 22 19 19 Blood Pressure 116/59 L Pulse Oximetry 95 96 96 09/28/21 15:30 09/28/21 16:00 09/28/21 16:20 Pulse Rate 81 90 Respiratory Rate 18 Blood Pressure Pulse Oximetry 97 92 93 09/28/21 16:30 09/28/21 17:00 09/28/21 17:30 Pulse Rate 93 H 96 H 92 H Respiratory Rate Blood Pressure 116/68 Pulse Oximetry 91 91 94 09/28/21 18:00 09/28/21 18:30 09/28/21 19:00 Pulse Rate 91 H 94 H 93 H Respiratory Rate 19 18 Blood Pressure Pulse Oximetry 96 96 93 09/28/21 19:30 Pulse Rate 99 H Respiratory Rate Blood Pressure 127/81 Pulse Oximetry 92 MDM - SOB/Dyspnea <Conchita Hardin PA-C - Last Filed: 09/28/21 20:23> Lab Data Lab results narrative: Dimer elevated. Result diagrams: 09/28/21 12:05 09/28/21 12:05 Labs: Lab Results 09/28/21 09/28/21 09/28/21 Range/Units 11:20 12:05 12:05 WBC 8.4 (4.5-11.0) X10^3/uL RBC 3.81 L (4.0-5.2) X10^6/uL Hgb 11.3 L (12.0-16.0) g/dL Hct 35.3 L (36-46) % MCV 92.7 (80-100) fL MCH 29.7 (26-34) PG MCHC 32.1 (30-36) % RDW 16.1 H (11.6-14.8) % Plt Count 205 (150-400) X10^3/uL Neut % (Auto) 73.6 (50-75) % Lymph % (Auto) 10.6 L (25-40) % Catron % (Auto) 12.6 (3-14) % Eos % (Auto) 3.0 (2-4) % Baso % (Auto) 0.2 (0-2) % Neut # (Auto) 6200 (3927-2035) /uL Lymph # (Auto) 900 L (1495-7466) /uL Catron # (Auto) 1100 H (0-900) /uL Eos # (Auto) 300 (0-450) /uL Baso # (Auto) 0 (0-100) /uL D-Dimer (<230) ng/mL Sodium 139 (137-145) mmol/L Potassium 4.1 (3.4-5.1) mmol/L Chloride 99 (98-107) mmol/L Carbon Dioxide 39 H (22-32) mmol/L BUN 14 (7-17) mg/dL Creatinine 0.44 L (0.52-1.04) mg/dL Estimated GFR > 60.0 (>60) mL/min BUN/Creatinine Ratio 31.8 H (6-22) Glucose 111 H (80-110) mg/dL Lactate (0.7-2.1) mmol/L Calcium 9.0 (8.4-10.2) mg/dL Total Bilirubin 0.5 (0.2-1.3) mg/dL AST 29 (14-36) IU/L ALT 11 (<35) IU/L Alkaline Phosphatase 151 H (38-126) U/L Total Creatine Kinase (30-135) U/L CK-MB (CK-2) CK-MB (CK-2) Rel Index Troponin I (0.01-0.034) ng/mL NT-Pro-B Natriuret Pep (<450) pg/mL Total Protein 6.3 (6.3-8.2) g/dL Albumin 3.4 L (3.5-5.0) g/dL Globulin 2.9 (1.7-4.1) g/dL Albumin/Globulin Ratio 1.2 (1.0-2.8) Procalcitonin (<0.5) ng/mL Urine RBC (0-5/HPF) Urine WBC (0-5/HPF) Ur Squamous Epith Cells (0-5/HPF) Urine Bacteria (None) Ur Culture Indicated? SARS-CoV-2 (PCR) Negative (Negative) 09/28/21 09/28/21 09/28/21 Range/Units 12:05 12:05 12:05 WBC (4.5-11.0) X10^3/uL RBC (4.0-5.2) X10^6/uL Hgb (12.0-16.0) g/dL Hct (36-46) % MCV (80-100) fL MCH (26-34) PG MCHC (30-36) % RDW (11.6-14.8) % Plt Count (150-400) X10^3/uL Neut % (Auto) (50-75) % Lymph % (Auto) (25-40) % Catron % (Auto) (3-14) % Eos % (Auto) (2-4) % Baso % (Auto) (0-2) % Neut # (Auto) (5172-1148) /uL Lymph # (Auto) (4334-0442) /uL Catron # (Auto) (0-900) /uL Eos # (Auto) (0-450) /uL Baso # (Auto) (0-100) /uL D-Dimer 1439 H (<230) ng/mL Sodium (137-145) mmol/L Potassium (3.4-5.1) mmol/L Chloride (98-107) mmol/L Carbon Dioxide (22-32) mmol/L BUN (7-17) mg/dL Creatinine (0.52-1.04) mg/dL Estimated GFR (>60) mL/min BUN/Creatinine Ratio (6-22) Glucose (80-110) mg/dL Lactate 0.9 (0.7-2.1) mmol/L Calcium (8.4-10.2) mg/dL Total Bilirubin (0.2-1.3) mg/dL AST (14-36) IU/L ALT (<35) IU/L Alkaline Phosphatase (38-126) U/L Total Creatine Kinase < 20 L (30-135) U/L CK-MB (CK-2) TNP CK-MB (CK-2) Rel Index TNP Troponin I < 0.012 (0.01-0.034) ng/mL NT-Pro-B Natriuret Pep 1210 H (<450) pg/mL Total Protein (6.3-8.2) g/dL Albumin (3.5-5.0) g/dL Globulin (1.7-4.1) g/dL Albumin/Globulin Ratio (1.0-2.8) Procalcitonin (<0.5) ng/mL Urine RBC (0-5/HPF) Urine WBC (0-5/HPF) Ur Squamous Epith Cells (0-5/HPF) Urine Bacteria (None) Ur Culture Indicated? SARS-CoV-2 (PCR) (Negative) 09/28/21 09/28/21 09/28/21 Range/Units 16:55 17:35 17:35 WBC (4.5-11.0) X10^3/uL RBC (4.0-5.2) X10^6/uL Hgb (12.0-16.0) g/dL Hct (36-46) % MCV (80-100) fL MCH (26-34) PG MCHC (30-36) % RDW (11.6-14.8) % Plt Count (150-400) X10^3/uL Neut % (Auto) (50-75) % Lymph % (Auto) (25-40) % Catron % (Auto) (3-14) % Eos % (Auto) (2-4) % Baso % (Auto) (0-2) % Neut # (Auto) (9594-0994) /uL Lymph # (Auto) (1932-3307) /uL Catron # (Auto) (0-900) /uL Eos # (Auto) (0-450) /uL Baso # (Auto) (0-100) /uL D-Dimer (<230) ng/mL Sodium (137-145) mmol/L Potassium (3.4-5.1) mmol/L Chloride (98-107) mmol/L Carbon Dioxide (22-32) mmol/L BUN (7-17) mg/dL Creatinine (0.52-1.04) mg/dL Estimated GFR (>60) mL/min BUN/Creatinine Ratio (6-22) Glucose (80-110) mg/dL Lactate (0.7-2.1) mmol/L Calcium (8.4-10.2) mg/dL Total Bilirubin (0.2-1.3) mg/dL AST (14-36) IU/L ALT (<35) IU/L Alkaline Phosphatase (38-126) U/L Total Creatine Kinase 21 L (30-135) U/L CK-MB (CK-2) TNP CK-MB (CK-2) Rel Index TNP Troponin I < 0.012 (0.01-0.034) ng/mL NT-Pro-B Natriuret Pep (<450) pg/mL Total Protein (6.3-8.2) g/dL Albumin (3.5-5.0) g/dL Globulin (1.7-4.1) g/dL Albumin/Globulin Ratio (1.0-2.8) Procalcitonin 0.04 (<0.5) ng/mL Urine RBC None seen (0-5/HPF) Urine WBC None seen (0-5/HPF) Ur Squamous Epith Cells 5-10 /hpf H (0-5/HPF) Urine Bacteria None seen (None) Ur Culture Indicated? Cult not indicated SARS-CoV-2 (PCR) (Negative) Urine Dip Bedside Urine Glucose Negative Bedside Urine Bilirubin - Negative Bedside Urine Ketone + 15 Urine Specific [place] 1.015 Bedside Urine Occult Blood +/- Bedside Urine pH 6.0 Bedside Urine Protein - Negative Bedside Urine Urobilinogen - Negative Bedside Urine Nitrite - Negative Bedside Urine Leukocytes - Negative Esterase Imaging Data Chest x-ray: Radiologist's Impression: PROCEDURE:? XR CHEST 1V ? INDICATIONS:? shortness of breath ? TECHNIQUE:? One view of the chest was acquired.? ? COMPARISON:? [facility], , CHEST 2 VIEW, 08/08/2012, 12:20.? [facility], , CHEST 2 VIEW, 11/22/2013, 13:04.? [facility], , XR CHEST 1V, 09/11/2021, 23:02. ? FINDINGS:? ? Surgical changes and devices:? None.? ? Lungs and pleura:? Lungs are clear.? No pleural effusions or pneumothorax.? ? Mediastinum:? Mediastinal contours appear normal.? Heart size is normal.? Atherosclerotic calcification of the aortic arch is noted.? ? Bones and chest wall:? Age-appropriate bony degenerative changes are seen.? No suspicious bony lesions.? Overlying soft tissues appear unremarkable.? ? ? IMPRESSION:? Unremarkable portable chest for age. ? ? Dictated by: Brian See M.D. on 09/28/2021 at 11:05 ? ? Approved by: Brian See M.D. on 09/28/2021 at 11:06 ? CT scan - chest: Radiologist's Impression: PROCEDURE:? CT ANGIO CHEST PE PROTOCOL ? INDICATIONS:? SOB, elevated dimer ? TECHNIQUE:? After the administration of intravenous contrast, 2 mm thick sections acquired from the pulmonary apices to the posterior costophrenic angles.? 3-dimensional maximum intensity projection (MIP) coronal and sagittal reformats were then acquired through the thorax.? For radiation dose reduction, the following was used:? automated exposure control, adjustment of mA and/or kV according to patient size.? ? COMPARISON:? [facility], CT, CT CHEST ABD PEL WO CON, 06/03/2021, 15:07. ? FINDINGS:? Image quality:? Excellent.? ? Pulmonary arteries:? Pulmonary arteries are normal in size, and demonstrate no intraluminal filling defects to suggest central pulmonary embolism.? ? Lungs and pleura:? Small dense consolidation in the lingula.? Patchy small peripheral consolidations medially in the right upper lobe and within the right azygos lobe.? Small peripheral nodules in the lateral right upper lobe the larger measuring 5 mm, 6/135.? Tiny nodules of the peripheral tree-in-bud nodular opacities are present bilaterally. ? There is bowing of the posterior tracheal wall and narrowing of the hilar airways bilaterally.? Mild bronchial wall thickening.? There are no pleural effusions or pneumothorax. ? Mediastinum:? Confluent subcarinal and left hilar adenopathy.? Heart size is mildly enlarged, without pericardial effusion.? Coronary artery calcification.? Thoracic aorta is normal in caliber and enhancement.? Moderate aortic calcification.? Retroesophageal right subclavian artery.? Esophagus is normal in caliber, without hiatal hernia.? ? Bones and chest wall:? No suspicious bony lesions.? Ribs and thoracic spine appear intact throughout.? Thyroid gland is normal.? No axillary or supraclavicular adenopathy.? ? Abdomen:? Visualized upper abdominal solid organs appear normal in the early arterial phase of enhancement.? ? IMPRESSION:? ? 1. No pulmonary embolus. ? 2. Left lingular consolidation and reactive left hilar and mediastinal adenopathy, probably pneumonia though underlying neoplasm is not excluded.? Consider follow- up. ? 3. There are other small areas of patchy subpleural parenchymal opacity in the upper lobes, and tiny tree-in-bud nodular opacities in the lower lungs, likely infectious or inflammatory. ? 4. Narrowing of the airways may indicate an element of COPD. ? 5. Stable right lateral upper lobe nodules.? Follow-up chest CT in one year is recommended for surveillance.? ? ? Dictated by: Sophie Walker M.D. on 09/28/2021 at 14:33 ? ? Approved by: Sophie Walker M.D. on 09/28/2021 at 14:40 ? ECG Data Interpretation: Sinus rhythm with PACs, right bundle-branch block, no axis deviation. [facility] Narrative Medical decision making narrative: 81-year-old female with past medical history COPD, osteoporosis, hyperlipidemia, hypertension, CAD, peripheral vascular disease, vertebral fractures, anxiety presents to the ED with 3 days of worsening shortness of breath. Concern for COPD exacerbation versus acute CHF exacerbation versus ACS versus PE versus pneumonia. Will order labs, EKG, CXR, D-dimer, NT proBNP, lactate, troponin. Will give Zofran, albuterol, ipratropium, methylprednisolone. Will reassess. Patient's symptoms significantly improved after 2 nebulizer treatments of albuterol/ipratropium, a dose of methylprednisolone. Dimer was elevated, CTA chest was performed. CTA with no evidence of pulmonary embolism, however showed possible pneumonia versus neoplasm versus inflammatory process. However, patient was stable throughout the ED stay, WBC. Procalcitonin within normal limits, patient afebrile, no prodcutive cough. Given lack of clinical symptoms, lab findings, will treat as a COPD flare versus infection. Discussed findings with patient. Counseled patient on regular use of inhalers. Prescription for 5 day course of prednisone sent to patient's pharmacy. ED return precautions discussed with patient, patient verbalized understanding. <Peewee Wilkinson DO - Last Filed: 09/29/21 07:08> Lab Data Labs: Lab Results 09/28/21 09/28/21 09/28/21 Range/Units 11:20 12:05 12:05 WBC 8.4 (4.5-11.0) X10^3/uL RBC 3.81 L (4.0-5.2) X10^6/uL Hgb 11.3 L (12.0-16.0) g/dL Hct 35.3 L (36-46) % MCV 92.7 (80-100) fL MCH 29.7 (26-34) PG MCHC 32.1 (30-36) % RDW 16.1 H (11.6-14.8) % Plt Count 205 (150-400) X10^3/uL Neut % (Auto) 73.6 (50-75) % Lymph % (Auto) 10.6 L (25-40) % Catron % (Auto) 12.6 (3-14) % Eos % (Auto) 3.0 (2-4) % Baso % (Auto) 0.2 (0-2) % Neut # (Auto) 6200 (3910-2837) /uL Lymph # (Auto) 900 L (5412-1021) /uL Catron # (Auto) 1100 H (0-900) /uL Eos # (Auto) 300 (0-450) /uL Baso # (Auto) 0 (0-100) /uL D-Dimer (<230) ng/mL Sodium 139 (137-145) mmol/L Potassium 4.1 (3.4-5.1) mmol/L Chloride 99 (98-107) mmol/L Carbon Dioxide 39 H (22-32) mmol/L BUN 14 (7-17) mg/dL Creatinine 0.44 L (0.52-1.04) mg/dL Estimated GFR > 60.0 (>60) mL/min BUN/Creatinine Ratio 31.8 H (6-22) Glucose 111 H (80-110) mg/dL Lactate (0.7-2.1) mmol/L Calcium 9.0 (8.4-10.2) mg/dL Total Bilirubin 0.5 (0.2-1.3) mg/dL AST 29 (14-36) IU/L ALT 11 (<35) IU/L Alkaline Phosphatase 151 H (38-126) U/L Total Creatine Kinase (30-135) U/L CK-MB (CK-2) CK-MB (CK-2) Rel Index Troponin I (0.01-0.034) ng/mL NT-Pro-B Natriuret Pep (<450) pg/mL Total Protein 6.3 (6.3-8.2) g/dL Albumin 3.4 L (3.5-5.0) g/dL Globulin 2.9 (1.7-4.1) g/dL Albumin/Globulin Ratio 1.2 (1.0-2.8) Procalcitonin (<0.5) ng/mL Urine RBC (0-5/HPF) Urine WBC (0-5/HPF) Ur Squamous Epith Cells (0-5/HPF) Urine Bacteria (None) Ur Culture Indicated? SARS-CoV-2 (PCR) Negative (Negative) 09/28/21 09/28/21 09/28/21 Range/Units 12:05 12:05 12:05 WBC (4.5-11.0) X10^3/uL RBC (4.0-5.2) X10^6/uL Hgb (12.0-16.0) g/dL Hct (36-46) % MCV (80-100) fL MCH (26-34) PG MCHC (30-36) % RDW (11.6-14.8) % Plt Count (150-400) X10^3/uL Neut % (Auto) (50-75) % Lymph % (Auto) (25-40) % Catron % (Auto) (3-14) % Eos % (Auto) (2-4) % Baso % (Auto) (0-2) % Neut # (Auto) (6707-8251) /uL Lymph # (Auto) (7921-5692) /uL Catron # (Auto) (0-900) /uL Eos # (Auto) (0-450) /uL Baso # (Auto) (0-100) /uL D-Dimer 1439 H (<230) ng/mL Sodium (137-145) mmol/L Potassium (3.4-5.1) mmol/L Chloride (98-107) mmol/L Carbon Dioxide (22-32) mmol/L BUN (7-17) mg/dL Creatinine (0.52-1.04) mg/dL Estimated GFR (>60) mL/min BUN/Creatinine Ratio (6-22) Glucose (80-110) mg/dL Lactate 0.9 (0.7-2.1) mmol/L Calcium (8.4-10.2) mg/dL Total Bilirubin (0.2-1.3) mg/dL AST (14-36) IU/L ALT (<35) IU/L Alkaline Phosphatase (38-126) U/L Total Creatine Kinase < 20 L (30-135) U/L CK-MB (CK-2) TNP CK-MB (CK-2) Rel Index TNP Troponin I < 0.012 (0.01-0.034) ng/mL NT-Pro-B Natriuret Pep 1210 H (<450) pg/mL Total Protein (6.3-8.2) g/dL Albumin (3.5-5.0) g/dL Globulin (1.7-4.1) g/dL Albumin/Globulin Ratio (1.0-2.8) Procalcitonin (<0.5) ng/mL Urine RBC (0-5/HPF) Urine WBC (0-5/HPF) Ur Squamous Epith Cells (0-5/HPF) Urine Bacteria (None) Ur Culture Indicated? SARS-CoV-2 (PCR) (Negative) 09/28/21 09/28/21 09/28/21 Range/Units 16:55 17:35 17:35 WBC (4.5-11.0) X10^3/uL RBC (4.0-5.2) X10^6/uL Hgb (12.0-16.0) g/dL Hct (36-46) % MCV (80-100) fL MCH (26-34) PG MCHC (30-36) % RDW (11.6-14.8) % Plt Count (150-400) X10^3/uL Neut % (Auto) (50-75) % Lymph % (Auto) (25-40) % Catron % (Auto) (3-14) % Eos % (Auto) (2-4) % Baso % (Auto) (0-2) % Neut # (Auto) (5395-3204) /uL Lymph # (Auto) (1749-4374) /uL Catron # (Auto) (0-900) /uL Eos # (Auto) (0-450) /uL Baso # (Auto) (0-100) /uL D-Dimer (<230) ng/mL Sodium (137-145) mmol/L Potassium (3.4-5.1) mmol/L Chloride (98-107) mmol/L Carbon Dioxide (22-32) mmol/L BUN (7-17) mg/dL Creatinine (0.52-1.04) mg/dL Estimated GFR (>60) mL/min BUN/Creatinine Ratio (6-22) Glucose (80-110) mg/dL Lactate (0.7-2.1) mmol/L Calcium (8.4-10.2) mg/dL Total Bilirubin (0.2-1.3) mg/dL AST (14-36) IU/L ALT (<35) IU/L Alkaline Phosphatase (38-126) U/L Total Creatine Kinase 21 L (30-135) U/L CK-MB (CK-2) TNP CK-MB (CK-2) Rel Index TNP Troponin I < 0.012 (0.01-0.034) ng/mL NT-Pro-B Natriuret Pep (<450) pg/mL Total Protein (6.3-8.2) g/dL Albumin (3.5-5.0) g/dL Globulin (1.7-4.1) g/dL Albumin/Globulin Ratio (1.0-2.8) Procalcitonin 0.04 (<0.5) ng/mL Urine RBC None seen (0-5/HPF) Urine WBC None seen (0-5/HPF) Ur Squamous Epith Cells 5-10 /hpf H (0-5/HPF) Urine Bacteria None seen (None) Ur Culture Indicated? Cult not indicated SARS-CoV-2 (PCR) (Negative) Urine Dip Bedside Urine Glucose Negative Bedside Urine Bilirubin - Negative Bedside Urine Ketone + 15 Urine Specific [place] 1.015 Bedside Urine Occult Blood +/- Bedside Urine pH 6.0 Bedside Urine Protein - Negative Bedside Urine Urobilinogen - Negative Bedside Urine Nitrite - Negative Bedside Urine Leukocytes - Negative Esterase Discharge Plan Departure Patient Disposition: Home Clinical Impression: COPD exacerbation Instructions: DI for Chronic Obstructive Pulmonary Disease Activity Restrictions/Additional Instructions: You were evaluated in the ED today for shortness of breath. Your symptoms are likely due to a COPD exacerbation. Your labs and vitals were reassuring and did not indicate an infection. Please continue to take your inhalers as prescribed by your doctor. You have been prescribed prednisone and Zofran for nausea. Return to the ED your symptoms worsen, you have fever, chills, worsening shortn ess of breath, chest pain. Prescriptions: New cefpodoxime 200 mg tablet 200 mg PO BID 10 Days Qty: 20 0RF Rx Instructions: must administer with a meal/food ondansetron 4 mg tablet,disintegrating 4 mg PO Q8H PRN (Reason: nausea and vomiting) Qty: 14 0RF prednisone 50 mg tablet 50 mg PO DAILY 5 Days Qty: 5 0RF No Action oxycodone 5 mg tablet 5 mg PO QID PRN (Reason: pain) Qty: 20 0RF lidocaine 5 % adhesive patch,medicated 1 patch topical DAILY PRN (Reason: pain) Qty: 30 0RF Rx Instructions: leave on most painful area for up to 12 hrs ondansetron 4 mg tablet,disintegrating 4 mg PO Q6H PRN (Reason: nausea and vomiting) Qty: 20 0RF gabapentin 100 mg capsule 100 mg PO BEDTIME 0RF fluticasone propion-salmeterol [Advair Diskus] 500-50 mcg/dose blister with device 1 inh inhalation BID 0RF furosemide [Lasix] 20 mg tablet 20 mg PO DAILY 0RF losartan 25 mg tablet 12.5 mg PO DAILY 0RF clopidogrel 75 mg tablet 75 mg PO DAILY 0RF simvastatin 20 mg tablet 20 mg PO DAILY 0RF carvedilol 12.5 mg tablet 12.5 mg PO DAILY 0RF Rx Instructions: must administer with a meal/food albuterol sulfate 2.5 mg /3 mL (0.083 %) solution for nebulization 2.5 mg inhalation Q4-6H PRN (Reason: Shortness Of Breath) 0RF cholecalciferol (vitamin D3) 25 mcg (1,000 unit) capsule 25 mcg PO DAILY 0RF vitamin B complex [B Complex-Vitamin B12] Tablet 2 tab PO DAILY 0RF levalbuterol HCl [Xopenex] 1.25 mg/3 mL solution for nebulization 1.25 mg inhalation Q4-6H PRN (Reason: Shortness Of Breath) 0RF Spiriva Respimat 1.25 mcg/actuation mist 1 puff inhalation DAILY PRN (Reason: Dyspnea) 0RF aspirin [Adult Low Dose Aspirin] 81 mg tablet,delayed release (DR/EC) 81 mg PO DAILY 0RF Referrals: Emery Singer MD [Primary Care Provider] - <Peewee Wilkinson DO - Last Filed: 09/29/21 07:08> Cosign ED Attending Cosignature Attestation: Dr Wilkinson Co-Sign Statement: I was available for consultation during this patient's emergency department visit. This chart is signed by myself for administrative purposes only. I did not have direct contact with this patient during this visit. They were seen independently by the APC.
[2021-09-28 12:33] LABS: Alanine Aminotransferase 11 IU/L (<35); Albumin 3.4 g/dL (3.5-5.0); Albumin Globulin Ratio 1.2 (1.0-2.8); Alkaline Phosphatase 151 U/L (38-126); Aspartate Aminotransferase 29 IU/L (14-36); BUN Creatinine Ratio 31.8 (6-22); Bilirubin Total 0.5 mg/dL (0.2-1.3); Blood Urea Nitrogen 14 mg/dL (7-17); Carbon Dioxide 39 mmol/L (22-32); Chloride 99 mmol/L (98-107); Estimated Glomerular Filt Rate > 60.0 mL/min (>60); Globulin 2.9 g/dL (1.7-4.1); Glucose 111 mg/dL (80-110); HEMOLYSIS < 15 (0-50); Lactate (Lactic Acid) 0.9 mmol/L (0.7-2.1); Potassium 4.1 mmol/L (3.4-5.1); Sodium 139 mmol/L (137-145); Total Protein 6.3 g/dL (6.3-8.2)
[2021-09-28 12:38] LABS: Creatine Kinase < 20 U/L (30-135)
[2021-09-28] MEDS: methylPREDNISolone 125 MG/2 ML VIAL IV (12:40)
[2021-09-28 12:41] LABS: D Dimer 1439 ng/mL (<230)
[2021-09-28] MEDS: ONDANSETRON 4 MG/2 ML INJ IV (12:41)
[2021-09-28] MEDS: ALBUTEROL/IPRATROPIUM 3 ML AMPUL INH ×2 (12:43→16:13)
[2021-09-28 12:51] LABS: NT-proBNP (BNP-Adult 18+) 1210 pg/mL (<450); Troponin I < 0.012 ng/mL (0.01-0.034)
--- NOTE | 2021-09-28 13:05 | DI.CT.S_ITS ---
PROCEDURE: CT ANGIO CHEST PE PROTOCOL INDICATIONS: SOB, elevated dimer TECHNIQUE: After the administration of intravenous contrast, 2 mm thick sections acquired from the pulmonary apices to the posterior costophrenic angles. 3-dimensional maximum intensity projection (MIP) coronal and sagittal reformats were then acquired through the thorax. For radiation dose reduction, the following was used: automated exposure control, adjustment of mA and/or kV according to patient size. COMPARISON: [facility], CT, CT CHEST ABD PEL WO CON, 06/03/2021, 15:07. FINDINGS: Image quality: Excellent. Pulmonary arteries: Pulmonary arteries are normal in size, and demonstrate no intraluminal filling defects to suggest central pulmonary embolism. Lungs and pleura: Small dense consolidation in the lingula. Patchy small peripheral consolidations medially in the right upper lobe and within the right azygos lobe. Small peripheral nodules in the lateral right upper lobe the larger measuring 5 mm, 6/135. Tiny nodules of the peripheral tree-in-bud nodular opacities are present bilaterally. There is bowing of the posterior tracheal wall and narrowing of the hilar airways bilaterally. Mild bronchial wall thickening. There are no pleural effusions or pneumothorax. Mediastinum: Confluent subcarinal and left hilar adenopathy. Heart size is mildly enlarged, without pericardial effusion. Coronary artery calcification. Thoracic aorta is normal in caliber and enhancement. Moderate aortic calcification. Retroesophageal right subclavian artery. Esophagus is normal in caliber, without hiatal hernia. Bones and chest wall: No suspicious bony lesions. Ribs and thoracic spine appear intact throughout. Thyroid gland is normal. No axillary or supraclavicular adenopathy. Abdomen: Visualized upper abdominal solid organs appear normal in the early arterial phase of enhancement. IMPRESSION: 1. No pulmonary embolus. 2. Left lingular consolidation and reactive left hilar and mediastinal adenopathy, probably pneumonia though underlying neoplasm is not excluded. Consider follow-up. 3. There are other small areas of patchy subpleural parenchymal opacity in the upper lobes, and tiny tree-in-bud nodular opacities in the lower lungs, likely infectious or inflammatory. 4. Narrowing of the airways may indicate an element of COPD. 5. Stable right lateral upper lobe nodules. Follow-up chest CT in one year is recommended for surveillance. Dictated by: Sophie Walker M.D. on 09/28/2021 at 14:33 Approved by: Sophie Walker M.D. on 09/28/2021 at 14:40
[2021-09-28] MEDS: OXYCODONE/ACETAMINOPHEN 5/325 TABLET 1 TAB PO (16:26)
[2021-09-28 17:41] LABS: RBC Urine None Seen (0-5/HPF); WBC Urine None Seen (0-5/HPF)
[2021-09-28 17:42] LABS: Bacteria Urine None Seen; Culture Indicated Urine Cult Not Indicated; Squamous Epithelial Cell Urine 5-10 /HPF (0-5/HPF)
[2021-09-28 18:25] LABS: Creatine Kinase 21 U/L (30-135)
[2021-09-28 18:38] LABS: Troponin I < 0.012 ng/mL (0.01-0.034)
[2021-09-28 19:09] LABS: Procalcitonin 0.04 ng/mL (<0.5)
--- NOTE | 2021-09-28 19:34 | PC.NURSE ---
Pt asked for acapella. notified/adonis'justin. RT called for teaching.
== END 2021-09-28 20:42 | disposition home or self-care (01) ==
PROVIDERS: Emergency Medicine; Emergency Provider Student in an Organized Health Care Education/Training Program; PCP Family Medicine
DX: J44.1 Chronic obstructive pulmonary disease with (acute) exacerbation (principal); R11.2 Nausea with vomiting, unspecified; I49.1 Atrial premature depolarization; I45.10 Unspecified right bundle-branch block; R32 Unspecified urinary incontinence; Z87.891 Personal history of nicotine dependence; Z20.822 Contact with and (suspected) exposure to COVID-19
CPT/HCPCS: 36415; 71045; 71275; 80053; 81003; 81015; 82550; 83605; 83880; 84145; 84484; 85025; 85379; 87635; 93005; 94640; 96374; 96375; 99285; C9803; J2405; J2930

== ENCOUNTER 2021-10-12 09:18 | Emergency (ER) | payer MEDICARE, OTHER, SELFPAY ==
[2021-09-12 02:22] VITALS: BMI 21.3
[2021-10-12] VITALS (20 sets, daily range): BP systolic 120–176; BP diastolic 59–95; PULSE 97–118; RESP 16–34; TEMP 36.5; O2SAT 92–97; BMI 19.2
--- NOTE | 2021-10-12 09:30 | DI.RAD.S_ITS ---
PROCEDURE: XR CHEST 1V INDICATIONS: n/v sob TECHNIQUE: One view of the chest was acquired. COMPARISON: [facility], , XR CHEST 1V, 09/28/2021, 11:47. FINDINGS: Surgical changes and devices: None. Lungs and pleura: There is hyperinflation and chronic interstitial changes without focal infiltrate, pleural effusion or pneumothorax. Mediastinum: Mediastinal contours appear normal. Heart size is normal. Atherosclerotic vascular calcification noted in the aortic arch. Bones and chest wall: No suspicious bony lesions. Overlying soft tissues appear unremarkable. Generalized decrease in osseous mineralization noted. IMPRESSION: Hyperinflation and chronic interstitial changes. Aortic atherosclerosis and osteopenia Approved by: Luis Stephens M.D. on 10/12/2021 at 9:46
--- NOTE | 2021-10-12 09:37 | ED_ITS ---
HPI - Abdominal Pain General Chief Complaint: Nausea/Vomiting/Diarrhea Stated Complaint: N/V X 1 day Time Seen by Provider: 10/12/21 09:28 History of Present Illness HPI narrative: Female history of COPD on home oxygen, CAD, hyperlipidemia, hypertension, cystocele chronic pain presenting today with nausea and vomiting for last 24 hours. She says she has been unable to keep anything down including her medications. She feels like her bladder is full. She has had some diarrhea. This has happened to her previously. She was admitted to the hospital September 12 through September 13. At that time she had been diagnosed with a UTI and started on Macrobid. It was thought that possibly her nausea vomiting was side effect of Macrobid. Home health who comes in to check on her. She denies any fever or chills. She is normally ambulatory. She denies any chest pain or worsening shortness of breath. Related Data Home Medications Medication Instructions Recorded Confirmed albuterol sulfate 2.5 mg INHALATION Q4-6H PRN 08/17/21 09/24/21 aspirin 81 mg tablet,delayed 81 mg PO DAILY 08/17/21 09/24/21 release (Adult Low Dose Aspirin) carvedilol 12.5 mg tablet 12.5 mg PO DAILY 08/17/21 09/24/21 cholecalciferol (vitamin D3) 25 25 mcg PO DAILY 08/17/21 09/24/21 mcg (1,000 unit) capsule clopidogrel 75 mg tablet 75 mg PO DAILY 08/17/21 09/24/21 fluticasone 500 mcg-salmeterol 50 1 inh INHALATION BID 08/17/21 09/24/21 mcg/dose blistr powdr for inhalation (Advair Diskus) furosemide 20 mg tablet (Lasix) 20 mg PO DAILY 08/17/21 09/24/21 gabapentin 100 mg capsule 100 mg PO BEDTIME 08/17/21 09/24/21 levalbuterol HCl 1.25 mg/3 mL 1.25 mg INHALATION Q4-6H PRN 08/17/21 09/24/21 solution for nebulization (Xopenex) losartan 25 mg tablet 12.5 mg PO DAILY 08/17/21 09/24/21 simvastatin 20 mg tablet 20 mg PO DAILY 08/17/21 09/24/21 tiotropium bromide 1.25 1 puff INHALATION DAILY PRN 08/17/21 09/24/21 mcg/actuation mist for inhalation (Spiriva Respimat) vitamin B complex (B 2 tab PO DAILY 08/17/21 09/24/21 Complex-Vitamin B12) Previous Rx's Medication Instructions Recorded oxycodone 5 mg tablet 5 mg PO QID PRN #20 tab 08/19/21 lidocaine 5 % topical patch 1 patch TOPICAL DAILY PRN #30 ea 08/24/21 ondansetron 4 mg disintegrating 4 mg PO Q6H PRN #20 tab 09/13/21 tablet ondansetron 4 mg disintegrating 4 mg PO Q8H PRN #14 tab 09/28/21 tablet Allergies Allergy/AdvReac Type Severity Reaction Status Date / Time nitrofurantoin Allergy Verified 10/05/21 09:50 [From Macrobid] Sulfa (Sulfonamide Allergy Verified 10/05/21 09:50 Antibiotics) Review of Systems Review of Systems Narrative: GENERAL: Denies chills, fatigue, malaise, fever, sweats, travel HEENT: Denies sinus pain, ear pain, sore throat, difficulty swallowing, neck pain RESPIRATORY: Denies dyspnea, cough, wheezing, hemoptysis, sputum. CARDIOVASCULAR: Denies chest pain, palpitations, orthopnea, edema GASTROINTESTINAL: See HPI : Denies dysuria, frequency, incontinence, hematuria, urinary retention, flank pain. MUSCULOSKELETAL: Denies weakness, joint pain, or bony pain SKIN: No rash, no erythema, no pruritus NEUROLOGIC: Denies weakness, dizziness, headache, numbness, change in speech, confusion PSYCHIATRIC: No concerning psychosocial issues. 12 point review of systems is negative except for those stated above and HPI Patient History Medical History Anxiety Backache COPD (chronic obstructive pulmonary disease) Coronary arteriosclerosis Hyperlipidemia Hypertension complications Microscopic hematuria Osteoporosis Oxygen dependent Pelvic fracture Pelvic pain in female Peripheral vascular disease Pressure ulcer Right hip pain Vaginal vault prolapse after hysterectomy Vitamin D deficiency Voiding dysfunction Surgical History History of hysterectomy Family History Father Coronary artery disease Mother Coronary artery disease Diabetes mellitus Osteoarthritis Social History household members: spouse Smoking Status: Former smoker alcohol intake: former Smoking Status: Former smoker Substance Use Type: does not use Exam Initial Vital Signs Initial Vital Signs: Vital Signs Pulse Rate 107 H 10/12/21 09:24 Pulse Oximetry 96 10/12/21 09:24 GENERAL: Alert week elderly 81-year-old female HEENT: Head atraumatic,EOMI, pupils reactive, face symmetric, moist mucous me mbranes CARDIOVASCULAR: Regular rate and rhythm without murmurs, rubs or gallops. RESPIRATORY: Breath sounds equal bilaterally, no wheezes rales or rhonchi. ABDOMEN: Soft, diffusely tender no localization no guarding or rebound : No CVA tenderness EXTREMITIES: Normal range of motion, no clubbing or edema. Neurovascularly intact NEUROLOGICAL: Alert and oriented x4. Moving all extremities SKIN: Warm, dry, no laceration, no petechiae, no rashes or lesions. Course Orders Ordered: ED Orders 10/12/21 13:15 Consult to [employer] - [employer] Stat 10/12/21 13:40 Urine Microscopic Stat 10/12/21 13:48 Consult to Physical Therapy Evaluate & Treat Discontinued Medications Ondansetron HCl (Ondansetron 4 Mg/2 Ml Inj) 4 mg IV NOW ONE Stop: 10/12/21 11:59 Last Admin: 10/12/21 12:14 Dose: 4 mg Documented by: VIRGEN Oxycodone HCl (Oxycodone Ir 5 Mg Tablet) 5 mg PO NOW ONE Stop: 10/12/21 11:59 Last Admin: 10/12/21 12:14 Dose: 5 mg Documented by: VIRGEN Vital Signs Vital signs: Vital Signs - 8 hr 10/12/21 11:00 10/12/21 11:01 10/12/21 11:22 Pulse Rate 116 H 114 H 109 H Respiratory Rate 18 16 18 Blood Pressure 170/95 H 163/79 H Pulse Oximetry 96 96 96 10/12/21 11:30 10/12/21 12:00 10/12/21 12:30 Pulse Rate 109 H 112 H 100 H Respiratory Rate 21 Blood Pressure 176/75 H 152/71 H Pulse Oximetry 96 97 96 10/12/21 13:00 10/12/21 13:30 10/12/21 14:00 Pulse Rate 99 H 117 H 110 H Respiratory Rate 16 34 H 20 Blood Pressure 120/59 L Pulse Oximetry 96 96 10/12/21 14:30 10/12/21 15:00 10/12/21 15:30 Pulse Rate 100 H 97 H 97 H Respiratory Rate 23 20 20 Blood Pressure Pulse Oximetry 96 95 95 10/12/21 15:43 10/12/21 16:12 Pulse Rate 103 H 99 H Respiratory Rate 18 18 Blood Pressure 141/67 H 141/67 H Pulse Oximetry 96 96 MDM - Abdominal Pain Lab Data Result diagrams: 10/12/21 09:30 10/12/21 09:30 Labs: Lab Results 10/12/21 10/12/21 10/12/21 Range/Units 09:30 09:30 09:30 WBC 16.7 H (4.5-11.0) X10^3/uL RBC 3.32 L (4.0-5.2) X10^6/uL Hgb 10.1 L (12.0-16.0) g/dL Hct 31.2 L (36-46) % MCV 93.9 (80-100) fL MCH 30.4 (26-34) PG MCHC 32.4 (30-36) % RDW 15.7 H (11.6-14.8) % Plt Count 247 (150-400) X10^3/uL Neut % (Auto) 87.1 H (50-75) % Lymph % (Auto) 4.3 L (25-40) % [place] % (Auto) 7.8 (3-14) % Eos % (Auto) 0.5 L (2-4) % Baso % (Auto) 0.3 (0-2) % Neut # (Auto) 13693 H (2000-6115) /uL Lymph # (Auto) 700 L (5834-3243) /uL [place] # (Auto) 1300 H (0-900) /uL Eos # (Auto) 100 (0-450) /uL Baso # (Auto) 100 (0-100) /uL Sodium 136 L (137-145) mmol/L Potassium 3.4 (3.4-5.1) mmol/L Chloride 104 (98-107) mmol/L Carbon Dioxide 30 (22-32) mmol/L BUN 7 (7-17) mg/dL Creatinine 0.38 L (0.52-1.04) mg/dL Estimated GFR > 60.0 (>60) mL/min BUN/Creatinine Ratio 18.4 (6-22) Glucose 99 (80-110) mg/dL Lactate 0.8 (0.7-2.1) mmol/L Calcium 8.6 (8.4-10.2) mg/dL Total Bilirubin 0.5 (0.2-1.3) mg/dL AST 22 (14-36) IU/L ALT 11 (<35) IU/L Alkaline Phosphatase 93 (38-126) U/L Total Creatine Kinase < 20 L (30-135) U/L CK-MB (CK-2) TNP CK-MB (CK-2) Rel Index TNP Troponin I < 0.012 (0.01-0.034) ng/mL Total Protein 5.2 L (6.3-8.2) g/dL Albumin 2.9 L (3.5-5.0) g/dL Globulin 2.3 (1.7-4.1) g/dL Albumin/Globulin Ratio 1.3 (1.0-2.8) Lipase 31 (23-300) U/L Procalcitonin (<0.5) ng/mL Urine RBC (0-5/HPF) Urine WBC (0-5/HPF) Ur Squamous Epith Cells (0-5/HPF) Urine Bacteria (None) Ur Culture Indicated? 10/12/21 10/12/21 Range/Units 09:31 13:40 WBC (4.5-11.0) X10^3/uL RBC (4.0-5.2) X10^6/uL Hgb (12.0-16.0) g/dL Hct (36-46) % MCV (80-100) fL MCH (26-34) PG MCHC (30-36) % RDW (11.6-14.8) % Plt Count (150-400) X10^3/uL Neut % (Auto) (50-75) % Lymph % (Auto) (25-40) % [place] % (Auto) (3-14) % Eos % (Auto) (2-4) % Baso % (Auto) (0-2) % Neut # (Auto) (8535-7290) /uL Lymph # (Auto) (2408-9592) /uL [place] # (Auto) (0-900) /uL Eos # (Auto) (0-450) /uL Baso # (Auto) (0-100) /uL Sodium (137-145) mmol/L Potassium (3.4-5.1) mmol/L Chloride (98-107) mmol/L Carbon Dioxide (22-32) mmol/L BUN (7-17) mg/dL Creatinine (0.52-1.04) mg/dL Estimated GFR (>60) mL/min BUN/Creatinine Ratio (6-22) Glucose (80-110) mg/dL Lactate (0.7-2.1) mmol/L Calcium (8.4-10.2) mg/dL Total Bilirubin (0.2-1.3) mg/dL AST (14-36) IU/L ALT (<35) IU/L Alkaline Phosphatase (38-126) U/L Total Creatine Kinase (30-135) U/L CK-MB (CK-2) CK-MB (CK-2) Rel Index Troponin I (0.01-0.034) ng/mL Total Protein (6.3-8.2) g/dL Albumin (3.5-5.0) g/dL Globulin (1.7-4.1) g/dL Albumin/Globulin Ratio (1.0-2.8) Lipase (23-300) U/L Procalcitonin 0.06 (<0.5) ng/mL Urine RBC None seen (0-5/HPF) Urine WBC None seen (0-5/HPF) Ur Squamous Epith Cells None seen (0-5/HPF) Urine Bacteria None seen (None) Ur Culture Indicated? Cult not indicated Point of care testing: Urine Dip Bedside Urine Glucose Negative Bedside Urine Bilirubin - Negative Bedside Urine Ketone +/- 5 Urine Specific [place] 1.010 Bedside Urine Occult Blood +/- Bedside Urine pH 7.0 Bedside Urine Protein - Negative Bedside Urine Urobilinogen - Negative Bedside Urine Nitrite - Negative Bedside Urine Leukocytes - Negative Esterase Imaging Data CT scan - abdomen/pelvis: Radiologist's Impression: PROCEDURE:? CT ABDOMEN PELVIS W CON ? INDICATIONS:? vomiting diffuse ab pain ? TECHNIQUE:? After the administration of intravenous contrast, axial sections acquired from the lung bases to the pubic symphysis.? Coronal and sagittal reformats were performed.? For radiation dose reduction, the following was used:? automated exposure control, adjustment of mA and/or kV according to patient size.? ? COMPARISON:? [facility], CT, CT ABDOMEN PELVIS W CON, 09/12/2021, 0:56. ? FINDINGS:? Image quality:? Excellent.? ? Lung bases:? Atelectasis in anterior medial aspect of right lung base is seen.? No pleural effusion or pneumothorax. Heart:? Heart size is enlarged, no pericardial effusion. ? ABDOMEN: Liver:? Unremarkable.? ? Gallbladder:? Within normal limits. Biliary ducts:? Unremarkable.? ? Pancreas:? Unremarkable.? ? Spleen:? Unremarkable.? ? Adrenal Glands:? Nodular thickening of bilateral adrenal glands are seen with suggestion of right adrenal nodule measures 5 mm in size and possible left adrenal nodule measures 5 mm in size. Kidneys and Ureters:? Unremarkable.? ? ? Stomach and Bowel:? There is no bowel obstruction.? Small hiatal hernia is seen.? There is suggestion of mild diffuse gastric wall thickening, no discrete gastric wall mass is seen.? Significant wall thickening and adjacent mesenteric fat stranding involving terminal ileum in right lower quadrant abdomen is seen.? There is also wall thickening involving adjacent cecum and ascending colon extending to hepatic flexure.? Transverse colon wall thickening is also noted.? There is no abscess collection.? Sigmoid diverticulosis is seen, no evidence of acute diverticulitis. Peritoneum:? No abnormal intraperitoneal fluid.? No free air.? ? Ventral Wall: ? No hernias.? Abdominal Nodes:? No retroperitoneal or mesenteric adenopathy by size criteria.? Vessels:? Aorta and inferior vena cava are normal in size.? Moderate atherosclerotic calcifications throughout abdominal aorta is seen. ? PELVIS: Pelvic Organs:? Unremarkable.? ? Bladder:? Unremarkable.? ? Pelvic Nodes: No enlarged lymph nodes.? Miscellaneous:? Left inguinal hernia is noted containing fat only. ? Bones:? No suspicious bony lesion.? There is interval development of superior endplate compression at T11, L4 and L5 levels.? Subacute to chronic appearing compression deformities at T12, superior endplate of L2, and at L3 level are again seen with interval further loss of L2 vertebral body height compared to previous study. ? ? IMPRESSION:? 1. Significant wall thickening involving stomach, distal small bowel loops and colon loops as described above suggestive of gastritis and antral colitis.? No abscess collection.? No free fluid or free air.? Sigmoid diverticulosis without evidence of acute diverticulitis.? Small hiatal hernia. 2. Interval worsening of superior endplate compression deformities at L3 level.? Interval development of superior endplate compression deformities at T11, L4 and L5 levels.? No suspicious intraosseous lesion.? Osteoarthritis throughout bony pelvis. 3. Suggestion of small subcentimeter bilateral adrenal hypodense nodules.? Finding may represent adrenal adenoma.? ? ? Dictated by: Ned Cee M.D. on 10/12/2021 at 12:11 ? ? Chest x-ray: Radiologist's Impression: PROCEDURE:? XR CHEST 1V ? INDICATIONS:? n/v sob ? TECHNIQUE:? One view of the chest was acquired.? ? COMPARISON:? [facility], , XR CHEST 1V, 09/28/2021, 11:47. ? FINDINGS:? ? Surgical changes and devices:? None.? ? Lungs and pleura:? There is hyperinflation and chronic interstitial changes without focal infiltrate, pleural effusion or pneumothorax. ? Mediastinum:? Mediastinal contours appear normal.? Heart size is normal.? Atherosclerotic vascular calcification noted in the aortic arch. ? Bones and chest wall:? No suspicious bony lesions.? Overlying soft tissues appear unremarkable.? Generalized decrease in osseous mineralization noted. ? IMPRESSION:? Hyperinflation and chronic interstitial changes.? Aortic atherosclerosis and osteopenia ? ? ? Approved by: Luis Stephens M.D. on 10/12/2021 at 9:46? ECG Data Interpretation: Normal sinus rhythm rate 102 AL interval 186 right bundle-branch block noted similar to previous EKG MDM Narrative Medical decision making narrative: Patient has chronic ongoing nausea and vomiting. Cause is unknown. She does have mild leukocytosis today of [address] is again negative. She had has nausea medication at. No need for admission at this time. Social Work has been in to see her. Appointment has been made with primary care provider for this week. Discharge Plan Departure Patient Disposition: Home Clinical Impression: Chronic vomiting Instructions: DI for Vomiting -- Adult Activity Restrictions/Additional Instructions: *You have been diagnosed with no vomiting *What to do: At this time no cause of vomiting is found. Please follow-up with your PCP. *Continue to take medications as directed Zofran 4 mg every 8 hours if needed for nausea vomiting *Follow up with your primary care provider in 2-3 days or call [phone] Your appointment has been made for MondayOctober 15 at 10am *Return to ER if you should have [such as] [or] any new, worsening or concerning symptoms Prescriptions: No Action oxycodone 5 mg tablet 5 mg PO QID PRN (Reason: pain) Qty: 20 0RF lidocaine 5 % adhesive patch,medicated 1 patch topical DAILY PRN (Reason: pain) Qty: 30 0RF Rx Instructions: leave on most painful area for up to 12 hrs ondansetron 4 mg tablet,disintegrating 4 mg PO Q6H PRN (Reason: nausea and vomiting) Qty: 20 0RF ondansetron 4 mg tablet,disintegrating 4 mg PO Q8H PRN (Reason: nausea and vomiting) Qty: 14 0RF gabapentin 100 mg capsule 100 mg PO BEDTIME 0RF fluticasone propion-salmeterol [Advair Diskus] 500-50 mcg/dose blister with device 1 inh inhalation BID 0RF furosemide [Lasix] 20 mg tablet 20 mg PO DAILY 0RF losartan 25 mg tablet 12.5 mg PO DAILY 0RF clopidogrel 75 mg tablet 75 mg PO DAILY 0RF simvastatin 20 mg tablet 20 mg PO DAILY 0RF carvedilol 12.5 mg tablet 12.5 mg PO DAILY 0RF Rx Instructions: must administer with a meal/food albuterol sulfate 2.5 mg /3 mL (0.083 %) solution for nebulization 2.5 mg inhalation Q4-6H PRN (Reason: Shortness Of Breath) 0RF cholecalciferol (vitamin D3) 25 mcg (1,000 unit) capsule 25 mcg PO DAILY 0RF vitamin B complex [B Complex-Vitamin B12] Tablet 2 tab PO DAILY 0RF levalbuterol HCl [Xopenex] 1.25 mg/3 mL solution for nebulization 1.25 mg inhalation Q4-6H PRN (Reason: Shortness Of Breath) 0RF Spiriva Respimat 1.25 mcg/actuation mist 1 puff inhalation DAILY PRN (Reason: Dyspnea) 0RF aspirin [Adult Low Dose Aspirin] 81 mg tablet,delayed release (DR/EC) 81 mg PO DAILY 0RF Referrals: Emery Singer MD [Primary Care Provider] -
--- NOTE | 2021-10-12 09:38 | DI.CT.S_ITS ---
PROCEDURE: CT ABDOMEN PELVIS W CON INDICATIONS: vomiting diffuse ab pain TECHNIQUE: After the administration of intravenous contrast, axial sections acquired from the lung bases to the pubic symphysis. Coronal and sagittal reformats were performed. For radiation dose reduction, the following was used: automated exposure control, adjustment of mA and/or kV according to patient size. COMPARISON: [facility], CT, CT ABDOMEN PELVIS W CON, 09/12/2021, 0:56. FINDINGS: Image quality: Excellent. Lung bases: Atelectasis in anterior medial aspect of right lung base is seen. No pleural effusion or pneumothorax. Heart: Heart size is enlarged, no pericardial effusion. ABDOMEN: Liver: Unremarkable. Gallbladder: Within normal limits. Biliary ducts: Unremarkable. Pancreas: Unremarkable. Spleen: Unremarkable. Adrenal Glands: Nodular thickening of bilateral adrenal glands are seen with suggestion of right adrenal nodule measures 5 mm in size and possible left adrenal nodule measures 5 mm in size. Kidneys and Ureters: Unremarkable. Stomach and Bowel: There is no bowel obstruction. Small hiatal hernia is seen. There is suggestion of mild diffuse gastric wall thickening, no discrete gastric wall mass is seen. Significant wall thickening and adjacent mesenteric fat stranding involving terminal ileum in right lower quadrant abdomen is seen. There is also wall thickening involving adjacent cecum and ascending colon extending to hepatic flexure. Transverse colon wall thickening is also noted. There is no abscess collection. Sigmoid diverticulosis is seen, no evidence of acute diverticulitis. Peritoneum: No abnormal intraperitoneal fluid. No free air. Ventral Wall: No hernias. Abdominal Nodes: No retroperitoneal or mesenteric adenopathy by size criteria. Vessels: Aorta and inferior vena cava are normal in size. Moderate atherosclerotic calcifications throughout abdominal aorta is seen. PELVIS: Pelvic Organs: Unremarkable. Bladder: Unremarkable. Pelvic Nodes: No enlarged lymph nodes. Miscellaneous: Left inguinal hernia is noted containing fat only. Bones: No suspicious bony lesion. There is interval development of superior endplate compression at T11, L4 and L5 levels. Subacute to chronic appearing compression deformities at T12, superior endplate of L2, and at L3 level are again seen with interval further loss of L2 vertebral body height compared to previous study. IMPRESSION: 1. Significant wall thickening involving stomach, distal small bowel loops and colon loops as described above suggestive of gastritis and antral colitis. No abscess collection. No free fluid or free air. Sigmoid diverticulosis without evidence of acute diverticulitis. Small hiatal hernia. 2. Interval worsening of superior endplate compression deformities at L3 level. Interval development of superior endplate compression deformities at T11, L4 and L5 levels. No suspicious intraosseous lesion. Osteoarthritis throughout bony pelvis. 3. Suggestion of small subcentimeter bilateral adrenal hypodense nodules. Finding may represent adrenal adenoma. Dictated by: Ned Cee M.D. on 10/12/2021 at 12:11 Approved by: Ned Cee M.D. on 10/12/2021 at 12:30
[2021-10-12 10:32] LABS: Add Manual Diff / Slide Review NO; Basophils Absolute Auto 100 /uL (0-100); Basophils Percent Auto 0.3 % (0-2); Eosinophils Absolute Auto 100 /uL (0-450); Eosinophils Percent Auto 0.5 % (2-4); Hematocrit 31.2 % (36-46); Hemoglobin 10.1 g/dL (12.0-16.0); Lymphocytes Absolute Auto 700 /uL (1100-4500); Lymphocytes Percent Auto 4.3 % (25-40); Mean Corpuscular HGB Conc 32.4 % (30-36); Mean Corpuscular Hemoglobin 30.4 PG (26-34); Mean Corpuscular Volume 93.9 fL (80-100); Monocytes Absolute Auto 1300 /uL (0-900); Monocytes Percent Auto 7.8 % (3-14); Neutrophils Absolute Auto 14500 /uL (1500-7000); Neutrophils Percent Auto 87.1 % (50-75); Platelet Count 247 X10^3/uL (150-400); Red Blood Cell Count 3.32 X10^6/uL (4.0-5.2); Red Cell Distribution Width 15.7 % (11.6-14.8); White Blood Cell Count 16.7 X10^3/uL (4.5-11.0)
[2021-10-12 10:35] LABS: Lactate (Lactic Acid) 0.8 mmol/L (0.7-2.1)
[2021-10-12 10:53] LABS: Procalcitonin 0.06 ng/mL (<0.5)
[2021-10-12 10:54] LABS: Alanine Aminotransferase 11 IU/L (<35); Albumin 2.9 g/dL (3.5-5.0); Albumin Globulin Ratio 1.3 (1.0-2.8); Alkaline Phosphatase 93 U/L (38-126); Aspartate Aminotransferase 22 IU/L (14-36); BUN Creatinine Ratio 18.4 (6-22); Bilirubin Total 0.5 mg/dL (0.2-1.3); Blood Urea Nitrogen 7 mg/dL (7-17); Calcium 8.6 mg/dL (8.4-10.2); Carbon Dioxide 30 mmol/L (22-32); Chloride 104 mmol/L (98-107); Creatine Kinase < 20 U/L (30-135); Estimated Glomerular Filt Rate > 60.0 mL/min (>60); Globulin 2.3 g/dL (1.7-4.1); Glucose 99 mg/dL (80-110); HEMOLYSIS < 15 (0-50); Lipase 31 U/L (23-300); Potassium 3.4 mmol/L (3.4-5.1); Sodium 136 mmol/L (137-145); Total Protein 5.2 g/dL (6.3-8.2)
[2021-10-12 11:05] LABS: Troponin I < 0.012 ng/mL (0.01-0.034)
[2021-10-12] MEDS: OXYCODONE IR 5 MG TABLET PO (12:14)
[2021-10-12] MEDS: ONDANSETRON 4 MG/2 ML INJ IV (12:14)
--- NOTE | 2021-10-12 14:29 | CM.SWNOTE ---
LEGAL ENTITY CONTROLLER/DCP Note LEGAL ENTITY CONTROLLER receives consult and enters room to meet with patient. Patient is 81 y/o female who presents to the ED via EMS after 2 + days of nausea and vomiting. Patient has hx of COPD, patient has oxygen at home through [facility]. Patient endorses that she does not know why she has been sick but endorses she has been sick for 6 months. Patient states that she has been unable to go to PCP appts with Dr. Singer because of sickness, patient states she had appt scheduled for today but cancelled due to ED visit. Patient resides at home with , patient endorses she has a lot of local family support from , daughters, granddaughter and great granddaughter. Patient states that her daughter assists with bathing, meal prep, cooking and cleaning around the house. Patient states that family checks in almost every day with her and . LEGAL ENTITY CONTROLLER asks about need for caregiver and patient denies this need due to family support. Patient endorses current HH services through [facility]. Per EMR, patient had referral set up on 09/13/21 with eduardo, RN, PT and OT. Patient endorses that she appreciates the services. Patient provides consent for LEGAL ENTITY CONTROLLER to contact [facility]. Patient endorses that she receives rides from family members and . LEGAL ENTITY CONTROLLER calls Olga at [facility] and confirms current referral, LEGAL ENTITY CONTROLLER to fax ED report for this visit. LEGAL ENTITY CONTROLLER calls [facility] case worker Moira who endorses she is scheduled to see patient on . Moira endorses the need for patient to get into to see PCP for possible GI consult. LEGAL ENTITY CONTROLLER calls PCP office and schedules f/u appt for patient for Monday10/15/21 at 10 AM, it is reported that they will contact daughter to inform her about appt. Information for appt will be in patient's d/c paper work. Plan: When medically clear Patient to d/c to home with family support, HH services, and PCP f/u appt for Monday10/15/21 ERVIN Zuniga
[2021-10-12 15:01] LABS: Bacteria Urine None Seen; Culture Indicated Urine Cult Not Indicated; RBC Urine None Seen (0-5/HPF); Squamous Epithelial Cell Urine None Seen (0-5/HPF); WBC Urine None Seen (0-5/HPF)
--- NOTE | 2021-10-12 16:15 | PC.NURSE ---
pt helped with dressing to go home. she is able to ambulate with standby assist. she has slow steady gait.
== END 2021-10-12 16:14 | disposition home or self-care (01) ==
PROVIDERS: Emergency Provider Emergency Medicine; PCP Family Medicine
DX: R11.2 Nausea with vomiting, unspecified (principal); R19.7 Diarrhea, unspecified; I45.10 Unspecified right bundle-branch block; I10 Essential (primary) hypertension
CPT/HCPCS: 36415; 71045; 74177; 80053; 81003; 81015; 82550; 83605; 83690; 84145; 84484; 85025; 93005; 93010; 96374; 99284; 99285; J2405; Q9967

== ENCOUNTER → 2021-11-25 16:52 | Outpatient (CLI) | payer MEDICARE, OTHER, SELFPAY ==
[2021-09-12 02:22] VITALS: BMI 21.3
--- NOTE | 2021-11-25 | DI.RAD.S_ITS ---
PROCEDURE: XR CHEST 2V INDICATIONS: Chronic obstructive pulmonary disease, unspecified TECHNIQUE: 2 views of the chest were acquired. COMPARISON: [facility], CT, CT ANGIO CHEST PE PROTOCOL, 09/28/2021, 13:53. [facility], CT, CT ABDOMEN PELVIS W CON, 10/12/2021, 11:04. [facility], CR, XR CHEST 1V, 10/12/2021, 9:51. [facility], CR, XR CHEST 1V, 09/28/2021, 11:47. FINDINGS: Surgical changes and devices: None. Lungs and pleura: Prominent perihilar markings. Subtle hazy opacity bilaterally. No significant pleural effusions or pneumothorax. Mediastinum: Mediastinal contours are unchanged. Heart size is within normal limits. Bones and chest wall: No suspicious bony abnormalities. Soft tissues appear unremarkable. IMPRESSION: Question pulmonary vasculature engorgement. Emphysematous change. Subtle bilateral hazy opacity. This could be due to atelectasis or infectious/inflammatory etiology. Dictated by: Manuelito Lawrence M.D. on 11/25/2021 at 21:23 Approved by: Manuelito Lawrence M.D. on 11/25/2021 at 21:28
== END ==
PROVIDERS: PCP Family Medicine; Referring Provider Family Medicine; Visit Provider Family Medicine
DX: J44.9 Chronic obstructive pulmonary disease, unspecified (principal)
CPT/HCPCS: 71046

== ENCOUNTER → 2021-12-14 16:51 | Outpatient (CLI) | payer MEDICARE, OTHER, SELFPAY ==
[2021-09-12 02:22] VITALS: BMI 21.3
[2021-12-14 17:58] LABS: BUN Creatinine Ratio 41.5 (6-22); Blood Urea Nitrogen 22 mg/dL (7-17); Calcium 9.2 mg/dL (8.4-10.2); Carbon Dioxide 35 mmol/L (22-32); Chloride 102 mmol/L (98-107); Estimated Glomerular Filt Rate > 60 mL/min (>60); Glucose 104 mg/dL (80-110); HEMOLYSIS < 15 (0-50); Sodium 140 mmol/L (137-145)
[2021-12-14 17:59] LABS: Potassium 3.8 mmol/L (3.4-5.1)
== END ==
PROVIDERS: PCP Family Medicine; Referring Provider Family Medicine; Visit Provider Family Medicine
DX: R10.9 Unspecified abdominal pain (principal); R53.81 Other malaise
CPT/HCPCS: 36415; 80048

== ENCOUNTER → 2021-12-16 11:24 | Outpatient (CLI) | payer MEDICARE, OTHER, SELFPAY ==
[2021-09-12 02:22] VITALS: BMI 21.3
--- NOTE | 2021-12-16 11:39 | DI.CT.S_ITS ---
PROCEDURE: CT ABDOMEN PELVIS W CON INDICATIONS: Unspecified abdominal pain TECHNIQUE: After the administration of oral and IV contrast, axial sections were acquired from the lung bases to the pubic symphysis. Coronal and sagittal reformats were performed. For radiation dose reduction, the following was used: automated exposure control, adjustment of mA and/or kV according to patient size. COMPARISON: [facility], CT, CT ABDOMEN PELVIS W CON, 10/12/2021, 11:04. FINDINGS: Image quality: Excellent. Lung bases: Unremarkable. Fat containing defect in the right diaphragm, measuring 3.6 cm. Heart: No significant findings. ABDOMEN: Liver: Nodular contour of the liver. A 5.5 mm hypoattenuating lesion is seen in the right hepatic lobe capsule, which may reflect a cyst Hepatic steatosis. Gallbladder: Unremarkable. Biliary ducts: Unremarkable. Pancreas: 4.3 mm hypoattenuating lesion in the pancreatic body. No pancreatic duct dilatation or contour deforming mass. Spleen: Unremarkable. Adrenal Glands: Unremarkable. Kidneys and Ureters: Unremarkable. Stomach and Bowel: No evidence of intestinal obstruction or inflammatory change. Sigmoid diverticulosis. The appendix appeared normal. Peritoneum: No abnormal intraperitoneal fluid. No free air. Ventral Wall: No hernia. Abdominal Nodes: Calcified mesenteric lymph nodes. Vessels: Calcified atheromatous change of the aorta with luminal diameter narrowing to 1 cm (2-27). PELVIS: Pelvic Organs: Unremarkable. Bladder: Unremarkable. Pelvic Nodes: No enlarged lymph nodes. Miscellaneous: Small bowel containing, right inguinal hernia. Small fat containing left inguinal hernia. Fat containing, defect in the left oblique muscle, measuring 2 cm. Bones: Diffuse osteopenia with multifocal degenerative change. Grossly unchanged compression fractures. IMPRESSION: 1. Small bowel containing, right inguinal hernia. 2. Fat containing left inguinal and spigelian hernias. 3. Calcified mesenteric lymph nodes, nonspecific. 4. 4.3 mm hypoattenuating lesion in the pancreatic body. Differential considerations include a pancreatic pseudocyst or IPMN. Dictated by: Ian Love M.D. on 12/16/2021 at 14:33 Approved by: Ian Love M.D. on 12/16/2021 at 14:46
== END ==
PROVIDERS: PCP Family Medicine; Referring Provider Family Medicine; Visit Provider Family Medicine
DX: K86.9 Disease of pancreas, unspecified (principal); K57.30 Diverticulosis of large intestine without perforation or abscess without bleeding; K40.20 Bilateral inguinal hernia, without obstruction or gangrene, not specified as recurrent; I89.8 Other specified noninfective disorders of lymphatic vessels and lymph nodes; R10.9 Unspecified abdominal pain
CPT/HCPCS: 74177

== ENCOUNTER → 2022-02-10 11:56 | Outpatient (CLI) | payer MEDICARE, OTHER, SELFPAY ==
[2021-09-12 02:22] VITALS: BMI 21.3
== END ==
PROVIDERS: PCP Family Medicine; Referring Provider Physical Medicine & Rehabilitation; Visit Provider Physical Medicine & Rehabilitation
DX: Z78.0 Asymptomatic menopausal state (principal); Z13.820 Encounter for screening for osteoporosis; M81.0 Age-related osteoporosis without current pathological fracture; J44.9 Chronic obstructive pulmonary disease, unspecified; Z90.710 Acquired absence of both cervix and uterus
CPT/HCPCS: 77080